=== PATIENT | male | born 1940 ===

== ENCOUNTER 2024-09-20 09:49 | Outpatient (AMB) | payer BC, MEDICARE, SELFPAY ==
--- NOTE | 2024-09-20 09:52 | A.OFFPC_ITS ---
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 Intake Note: New patient visit J2Ee Developer Required: No Accompanied by: Spouse Allergies No Known Allergies Allergy (Verified 09/20/24 09:53) Tobacco use date assessed: 09/20/24 Fall risk assessment: 2 + Falls in past year Last assessed Fall Risk: 09/20/24 Dental Screening Dental Screen Date: 09/20/24 Did you have a dental visit in the last 12 months?: Yes Did you have a dental problem in the last 6 months where you did not have access to dental care?: No Was dental information given to patient?: Patient has dentist HPI HPI Comments History of Present Illness Details The patient is an 84 year old male with a past medical history of CHF, ICM, h/o CABG 2009, s/p repair, macular degeneration, hearing loss and back pain presenting to [facility]. Transfer from [facility] CV: on entresto, crestor, hydralazine, farxiga, imdur, lasix, ASA, omega. Follows with cardiology Jigar Gonzalez. Sees every six months. Chronic shortness of breath-history of covid pneumonia. Recent blood work Urology: On flomax MSK Chronic low back pain. Trouble sleeping. Had spinal stimulator. He was scheduled for cortisone injection last week but was on antibiotics at the time so this was delayed. Follows with Dr Velázquez. Gout-on allopurinol. No recent flare Wet macular degeneration. Follows with optho Recent ear surgery-sushma [place] last week. Issues with loose stools. Ongoing. On abx for recent ear surgery. Horrible taste in his mouth On vitamin D ROS see HPI PHYSICAL EXAM: GENERAL: Alert and oriented x 3. NAD EYES: EOMI. Anicteric. HENT: Moist mucous membranes. +thrush. No scleral icterus. No cervical lymphadenopathy. LUNGS: Clear to auscultation bilaterally. CARDIOVASCULAR: Regular rate and rhythm. systolic murmur. No JVD. ABDOMEN: Soft, non-tender +bs EXTREMITIES: No edema. Non-tender. SKIN: No rashes or lesions. Warm. NEUROLOGIC: No focal neurological deficits. CN II-XII grossly intact PSYCHIATRIC: Cooperative. Appropriate mood and affect [facility] Surgical History Hx of CABG History of knee surgery Hx of tonsillectomy Social History Housing: House Alcohol intake: never Patient Tobacco Use Status: Never used Tobacco Years Smoked: 40 e-Cigarette/Vaping Use: Never Used Second Hand Smoke Exposure: No service: Yes Current occupational status: retired Cognitive needs: No Hearing needs: Yes Vision needs: No Questionnaire PHQ-9 Over the last 2 weeks, how often have you been bothered by any of the following problems? 1. Little interest or pleasure in doing things: not at all 2. Feeling down, depressed, or hopeless: not at all 3. Trouble falling or staying asleep, or sleeping too much: nearly every day 4. Feeling tired or having little energy: nearly every day 5. Poor appetite or overeating: not at all 6. Feeling bad about yourself - or that you are a failure or have let yourself or your family down: not at all 7. Trouble concentrating on things, such as reading the newspaper or watching television: not at all 8. Moving or speaking so slowly that other people could have noticed. Or the opp osite - being so fidgety or restless that you have been moving around a lot more than usual: not at all 9. Thoughts that you would be better off or of hurting yourself in some way: not at all Total score: 6 Depression Screening Interpretation: Positive Depression Screening Done: Yes 37390 - PHQ-9 Billing: Yes Source: Developed by Drs. Ashish North, Zunilda Fournier, Ignacio Dimas and colleagues, with an educational june from [employer]. Thrive Questionnaire Date Thrive assessed: 09/20/24 I am a: Patient What is your living situation today?: I have a steady place to live Within the past 12 months, did the food you bought not last and you didn't have the money to get more?: Never true Within the past 12 months, did you worry whether your food would run out before you got money to buy more?: Never true Do you have trouble paying for medicines?: No Do you have trouble getting transportation to medical appointments?: No Do you have trouble paying your heating and electricity bill?: No Do you have trouble taking care of your child, family member or friend?: No Do you have trouble with day-to-day activities such as bathing, preparing meals, shopping, managing finances, etc.?: No Are you currently unemployed and looking for a job?: I choose not to answer this question Are you interested in more education?: No Please select the resources that you would like help with: None Currently or been in a relationship where the following occur: I choose not to answer THRIVE Score: 0 AUDIT C Alcohol Use Questionnaire (AUDIT-C) 1. How often do you have a drink containing alcohol?: Never 3. How often do you have six or more drinks on one occasion?: Never Total Score: 0 LUCAS-7 AMB Questionnaire LUCAS-7 Date LUCAS - 7 assessed: 09/20/24 Feeling nervous, anxious, or on edge: 0 = Not at all Not being able to stop or control worryin = Not at all Worrying too much about different things: 0 = Not at all Trouble relaxin = Not at all Being so restless that it is hard to sit still: 0 = Not at all Becoming easily annoyed or irritable: 0 = Not at all Feeling afraid as if something awful might happen: 0 = Not at all Total LUCAS-7 score (0-4 normal; 5-9 mild; 10-14 moderate; 15-21 severe): 0 Source: Developed by Drs. Ashish North, Zunilda Fournier, Ignacio Dimas and colleagues, with an educational june from [employer]. LUCAS-7 Assessment Billing LUCAS-7 Assessment Tool: LUCAS-7 Assessment 10304 Physical exam (Primary Care) Vital Signs: Last Vital Signs Temp 98.2 F 09/20/24 09:54 Pulse 69 09/20/24 09:54 Resp 14 09/20/24 09:54 BP 116/46 L 09/20/24 09:54 Pulse Ox 97 09/20/24 09:54 Oxygen Delivery Method Room Air 09/20/24 09:54 BMI result Body Mass Index 27.2 Depression Screening Interpretation: Positive Currently or been in a relationship where the following occur: I choose not to answer Coding Level of Care Code New Pt Level 4 (38915) Complex EM visit Add On G2211 Diagnoses Chronic combined systolic and diastolic congestive heart failure I50.42 Heart failure type: combined systolic and diastolic Heart failure chronicity: chronic Coronary artery disease involving coronary bypass graft of [place] heart, unspecified whether angina present I25.810 Coronary Disease-Associated Artery/Lesion type: bypass graft [place] vs. transplanted heart: [place] heart Associated angina: unspecified whether angina present Dysgeusia R43.2 Diarrhea, unspecified type R19.7 Diarrhea type: unspecified type Additional Codes LUCAS-7 Assessment Billing - LUCAS-7 Assessment Tool: LUCAS-7 Assessment 76396 ([id number]) PHQ-9 - 10579 - PHQ-9 Billing: Yes ([id number]) Assessment & Plan Assessment & Plan (1) CHF (congestive heart failure): Code(s): I50.9 - Heart failure, unspecified Category: Medical Qualifiers: Heart failure type: combined systolic and diastolic Heart failure chronicity: chronic Qualified Code(s): I50.42 - Chronic combined systolic (congestive) and diastolic (congestive) heart failure (2) CAD (coronary artery disease): Code(s): I25.10 - Atherosclerotic heart disease of [place] coronary artery without angina pectoris Category: Medical Qualifiers: Coronary Disease-Associated Artery/Lesion type: bypass graft [place] vs. transplanted heart: [place] heart Associated angina: unspecified whether angina present Qualified Code(s): I25.810 - Atherosclerosis of coronary artery bypass graft(s) without angina pectoris (3) Dysgeusia: Code(s): R43.2 - [place] Category: Medical (4) Diarrhea: Code(s): R19.7 - Diarrhea, unspecified Category: Medical Qualifiers: Diarrhea type: unspecified type Qualified Code(s): R19.7 - Diarrhea, unspecified Plan 84 yo to establish care past medical, surgical, social reviewed CAD/CHF-follows with cardiology Loose frequent stools, GERD, dysgeusia-check h pylori, c diff Thrush-nystatin swish and swallow. Denies groin rash Orders: Orders H pylori Ag Stool Today R19.7 - Diarrhea, unspecified, R43.2 - [place] CDiff Gene PCR Today R19.7 - Diarrhea, unspecified, R43.2 - [place] Medications: New omeprazole 40 mg PO DAILY 90 caps 3RF nystatin swish and spit 1 mL buccal DAILY 14 days 60 mL 3RF
[2024-09-20 09:54] VITALS: BP 116/46; PULSE 69; RESP 14; TEMP 36.8; O2SAT 97; BMI 27.2
--- OUTSIDE RECORDS SUMMARY | 2024-09-20 10:55 | XMS_ITS | Patient Health Record ---
Author Organization [facility] [address] Address [address] [place] [address] Care Team Providers Care Pipe Welder Name Role Phone Stewart Medel Primary Care Provider Unavailab humera Leisa Garrett Unavailable [phone] Reason For Referral No Information Medications Medication SIG (Take, Route, Frequency, Duration) Notes Start Date End Date Status Pentoxifylline ER 400 MG 1 tablet with m eals Orally Twice a day Active Gabapentin 300 MG/6ML 2 ml Orally Three times a day Active Aspirin 81 MG 1 tablet Orally Once a day Active Allopurinol 300 MG 1 tablet Orally Once a day Active Tamsulosin HCl 0.4 MG 1 capsule Orally Once a day Active glipiZIDE 2.5 mg Act chayo Schaller 3 1000 MG 1 capsule Orally Once a day Active Vitamin D3 5000 UNIT/ML Orally Active Simvastatin 20 MG 1 tablet in the even ing Orally Once a day Active Lisinopril 20 MG 1 tablet Orally Once a day Active Social History Tobacco Use: Social History Observation Description Date Details (start date - stop date) Former Smoker NA - NA Tobacco Use/Smoking Question Answer Notes Are you a: former smoker When did you stop smoking? 2002 Additional Findings: Tobacco Non-User Current no n-smoker Alcohol Screen Question Answer Notes Did you have a drink containing alcohol in the p ast year? No Points 0 Interpretation Negative Tobacco use other than smoking: Question Answer Notes Are you an other tobacco user? Yes C igar rarely Problems Problem Type SNOMED Code ICD Code Onset Dates Problem Status W/U Status Risk Notes Problem Acquired hammer toe of right foot (56511852250 13537) Other hammer toe(s) (acquired), right foot (M20.41) Active confirmed Problem Acquired hammer toe of left foot ([id number] 79971) Other hammer toe(s) (acquired), left foot (M20.42) Active confirmed Problem Other atherosclerosis of [place] arteries of extremities, 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) Active confirmed Plan Of Treatment No Information Insurance Providers Payer Name Payer Address Payer Phone Subscriber Number Group Number Insured Name Patient Relationship to Insured Coverage Start Date Coverage End Date Medicare National [employer] [address] [place] [address] [phone] [id number] Tam Dunaway Self - patient is the insured [facility] [address] [place] [address] [id number] Tam Dunaway Self - patient is the insured Medical (General) History Medical History History ICD Code Back,Hip,and Knee pain Gout High blood pressure Scarlet fever Measles Mumps Chicken pox Surgical History Surgery Date(Month/Year) triple bypass
== END 2024-09-20 10:27 | disposition home or self-care (01) ==
LOC: HO.HMCFM 09:50
PROVIDERS: PCP Internal Medicine; Visit Provider Internal Medicine
DX: I50.42 Chronic combined systolic (congestive) and diastolic (congestive) heart failure (principal); I25.810 Atherosclerosis of coronary artery bypass graft(s) without angina pectoris; R43.2 Parageusia; R19.7 Diarrhea, unspecified

== ENCOUNTER → 2024-09-20 09:49 | Outpatient (BNVA) | payer MEDICARE, BC, SELFPAY | PROVIDERS: PCP Internal Medicine; Visit Provider Internal Medicine | DX: I50.42 Chronic combined systolic (congestive) and diastolic (congestive) heart failure (principal); I25.810 Atherosclerosis of coronary artery bypass graft(s) without angina pectoris; R43.2 Parageusia; R19.7 Diarrhea, unspecified | CPT/HCPCS: 96127 ==

== ENCOUNTER 2024-09-22 13:40 | Outpatient (REF) | payer MEDICARE, BC, SELFPAY ==
[2024-09-22 14:35] LABS: CDiff Gene PCR NEGATIVE (Negative)
--- OUTSIDE RECORDS SUMMARY | 2024-09-22 14:49 | XMS_ITS | Patient Health Record ---
Author Organization [facility] [address] Address [address] [place] [address] Care Team Providers Care Envelope Stamping Machine Operator Name Role Phone Stewart Medel Primary Care Provider Unavailab humera Leisa Garrett Unavailable [phone] Reason For Referral No Information Medications Medication [...] day Active glipiZIDE 2.5 mg Act chayo Darrington 3 1000 MG 1 capsule Orally Once [...] Problem Acquired hammer toe of right foot ([id number] 79864) Other hammer toe(s) (acquired), right foot (M20.41) Active confirmed Problem Acquired hammer toe of left foot ([id number] 08210) Other hammer toe(s) (acquired), left foot (M20.42) Active confirmed Problem Other atherosclerosis of [place] arteries of extremities, 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) Active confirmed Plan Of Treatment No Information Insurance Providers Payer Name Payer Address Payer Phone Subscriber Number Group Number Insured Name Patient Relationship to Insured Coverage Start Date Coverage End Date Medicare National [employer] [address] [place] [address] [phone] [id number] Tam Dunaway Self - patient is the insured [facility] [address] [place] [address] [id number] Tam Dunaway Self - patient is the insured Medical (General) History Medical History History ICD Code Back,Hip,and Knee pain Gout High blood pressure Scarlet fever Measles Mumps Chicken pox Surgical History Surgery Date(Month/Year) triple bypass
== END 2024-09-22 13:41 | disposition home or self-care (01) ==
LOC: HO.LNP 13:40
PROVIDERS: Visit Provider Internal Medicine
DX: R43.2 Parageusia (principal); R19.7 Diarrhea, unspecified
CPT/HCPCS: 87338; 87493

== ENCOUNTER 2024-10-11 11:26 | Outpatient (AMB) | payer MEDICARE, BC, SELFPAY ==
--- NOTE | 2024-10-11 11:30 | A.OFFPC_ITS ---
Vital Signs 10/11/24 11:34 Height 5 ft 11 in Weight 197 lb BMI 27.5 BP 126/62 Blood Pressure Location Lt brachial Position Sitting Respiration 16 Pulse 84 Pulse Source Pulse Oximeter Temp 97.6 F Temp Source Oral Pulse Oximetry (%) 96 Oxygen Delivery Method Room Air Intake Visit Reasons: episodes of sob Intake Note: Ongoing shortness of breath on exertion. Coughing at night lying down. Allergies No Known Allergies Allergy (Verified 10/11/24 11:34) Tobacco use date assessed: 09/20/24 Dental Screening Dental Screen Date: 09/20/24 HPI HPI Comments History of Present Illness Details The patient is an 84 year old male with a past medical history of CHF, ICM, h/o CABG 2009, s/p repair, macular degeneration, hearing loss and back pain presenting for follow up Patient has been experiencing sob regularly for years, since he had pneumonia from Covid. Patient was told by his manager business systems that he has a lung disease. Patient is asymptomatic sitting and not moving but once he moves around he becomes short of breath. He also experiences shortness of breath while lying down, and has to sleep upright, sometimes in his armchair. ~5 pound weight gain recently. Chronic nightime cough. CV: on entresto, crestor, hydralazine, farxiga, imdur, lasix, ASA, omega. Follows with cardiology Jigar Gonzalez. Sees every six months. Chronic shortness of breath-history of covid pneumonia. Urology: On flomax MSK Chronic low back pain. Trouble sleeping. Had spinal stimulator.Gets cortisone injections Follows with Dr Velázquez. Gout-on allopurinol. No recent flare Wet macular degeneration. Follows with optho Recent ear surgery-sushma [place]. Issues with loose stools. Ongoing. On abx for recent ear surgery. Horrible taste in his mouth. H pylori and cdiff negative ROS see HPI PHYSICAL EXAM: GENERAL: Alert and oriented x 3. NAD EYES: EOMI. Anicteric. HENT: Moist mucous membranes. +thrush. No scleral icterus. No cervical lymphadenopathy. LUNGS: Clear to auscultation bilaterally. Poor air entry CARDIOVASCULAR: Regular rate and rhythm. Loud systolic murmur. No JVD. ABDOMEN: Soft, non-tender +bs EXTREMITIES: 1+ edema b/l Non-tender. SKIN: No rashes or lesions. Warm. NEUROLOGIC: No focal neurological deficits. CN II-XII grossly intact PSYCHIATRIC: Cooperative. Appropriate mood and affect [facility] Surgical History Hx of CABG History of knee surgery Hx of tonsillectomy Social History Housing: House Alcohol intake: never Patient Tobacco Use Status: Never used Tobacco Years Smoked: 40 e-Cigarette/Vaping Use: Never Used Second Hand Smoke Exposure: No service: Yes Current occupational status: retired Cognitive needs: No Hearing needs: Yes Vision needs: No Questionnaire Thrive Questionnaire Date Thrive assessed: 09/20/24 I am a: Patient What is your living situation today?: I have a steady place to live Within the past 12 months, did the food you bought not last and you didn't have the money to get more?: Never true Within the past 12 months, did you worry whether your food would run out before you got money to buy more?: Never true Do you have trouble paying for medicines?: No Do you have trouble getting transportation to medical appointments?: No Do you have trouble paying your heating and electricity bill?: No Do you have trouble taking care of your child, family member or friend?: No Do you have trouble with day-to-day activities such as bathing, preparing meals, shopping, managing finances, etc.?: No Are you currently unemployed and looking for a job?: I choose not to answer this question Are you interested in more education?: No Please select the resources that you would like help with: None Currently or been in a relationship where the following occur: I choose not to answer THRIVE Score: 0 LUCAS-7 AMB Questionnaire LUCAS-7 Date LUCAS - 7 assessed: 09/20/24 Source: Developed by Zunilda Medina B.W. Shantanu, Ignacio Dimas and colleagues, with an educational june from [employer]. Physical exam (Primary Care) Vital Signs: Last Vital Signs Temp 97.6 F 10/11/24 11:34 Pulse 84 10/11/24 11:34 Resp 16 10/11/24 11:34 BP 126/62 10/11/24 11:34 Pulse Ox 96 10/11/24 11:34 Oxygen Delivery Method Room Air 10/11/24 11:34 BMI result Body Mass Index 27.5 Tobacco/Smoking Status: Tobacco use Status Tobacco use date assessed 09/20/24 10/11/24 11:30 Patient Tobacco Use Status Never used Tobacco 10/11/24 11:30 e-Cigarette/Vaping Use Never Used 10/11/24 11:30 Thrive Assessment: Date of Thrive Assessment Date Thrive assessed 09/20/24 10/11/24 11:30 Currently or been in a relationship where the following occur: I choose not to answer Coding Level of Care Code Est Pt Level 4 (95707) Complex EM visit Add On G2211 Diagnoses Chronic combined systolic and diastolic congestive heart failure I50.42 Heart failure type: combined systolic and diastolic Heart failure chronicity: chronic Coronary artery disease involving coronary bypass graft of [place] heart, unspecified whether angina present I25.810 Coronary Disease-Associated Artery/Lesion type: bypass graft [place] vs. transplanted heart: [place] heart Associated angina: unspecified whether angina present Shortness of breath R06.02 Diarrhea, unspecified type R19.7 Diarrhea type: unspecified type Assessment & Plan Assessment & Plan (1) CHF (congestive heart failure): Code(s): I50.9 - Heart failure, unspecified Category: Medical Qualifiers: Heart failure type: combined systolic and diastolic Heart failure chronicity: chronic Qualified Code(s): I50.42 - Chronic combined systolic (congestive) and diastolic (congestive) heart failure (2) CAD (coronary artery disease): Code(s): I25.10 - Atherosclerotic heart disease of [place] coronary artery without angina pectoris Category: Medical Qualifiers: Coronary Disease-Associated Artery/Lesion type: bypass graft [place] vs. transplanted heart: [place] heart Associated angina: unspecified whether angina present Qualified Code(s): I25.810 - Atherosclerosis of coronary artery bypass graft(s) without angina pectoris (3) Shortness of breath: Code(s): R06.02 - Shortness of breath Category: Medical (4) Diarrhea: Code(s): R19.7 - Diarrhea, unspecified Category: Medical Qualifiers: Diarrhea type: unspecified type Qualified Code(s): R19.7 - Diarrhea, unspecified Plan Shortness of breath Known CHF, CAD. Following with cardiology. Recent weight gain. Increase lasix to 40 daily x 3 days then 20 daily (currently qother day) Check CXR, labs PFTs Referral to pulmonary Orders: Orders XR chest 2V Today R06.02 - Shortness of breath Magnesium Today I50.42 - Chronic combined systolic (congestive) and diastolic (congestive) heart failure, R05.9 - Cough, unspecified, R06.02 - Shortness of breath Complete Blood Count Auto Diff Today R06.02 - Shortness of breath Comprehensive Met. Panel Today I25.810 - Atherosclerosis of coronary artery bypass graft(s) without angina pectoris, I50.42 - Chronic combined systolic (congestive) and diastolic (congestive) heart failure PFT pulmonary function test Today R05.9 - Cough, unspecified, R06.02 - Shortness of breath NT-proBNP Today I50.42 - Chronic combined systolic (congestive) and diastolic (congestive) heart failure, R05.9 - Cough, unspecified, R06.02 - Shortness of breath Referrals Pulmonology Referral I50.42 - Chronic combined systolic (congestive) and diastolic (congestive) heart failure, R05.9 - Cough, unspecified, R06.02 - Shortness of breath
[2024-10-11 11:34] VITALS: BP 126/62; PULSE 84; RESP 16; TEMP 36.4; O2SAT 96; BMI 27.5
--- OUTSIDE RECORDS SUMMARY | 2024-10-11 12:33 | XMS_ITS | Clinical Summary ---
Author Organization [facility] [address] [facility] Address [address] [place] [address] Phone Care Team Providers Care Chief School Finance Officer Name Role Phone Unavailable Primary Care Provider Unavailabl e Allergies No known active allergies Medications hydrALAZINE (APRESOLINE) 100 mg tablet Take 1 tablet (100 mg total) by mouth 3 (three) times a day. 02/22/20 25 Active rosuvastatin (CRESTOR) 10 mg tablet Take 1 tablet (10 mg total) by mouth 1 (one) time each day. Active sacubitriL-valsa rtan (Entresto) 97-103 mg per tablet Take 1 tablet by mouth 2 (two) times a day. Per cardio Active dapagliflozin propanediol (Farxiga) 10 mg tablet Take 1 tablet (10 mg total) by mouth 1 (one) time each day. Per Active omeprazole (PriLOSEC) [address] capsule Take 2 capsules (40 mg total) by mouth 1 (one) time each day. Do not crush or chew. 02/22/20 25 Active tamsulosin (FLOMAX) 0.4 mg 24 hr capsule Take 1 capsule (0.4 mg total) by mouth 1 (one) time each day. Capsules should be taken 30 minutes following the same meal each day. 02/22/20 25 Active isosorbide mononitrate (IMDUR) 120 mg 24 hr tablet Take 1 tablet (120 mg total) by mouth 1 (one) time each day. Do not crush or chew. Per Active furosemide (LASIX) 20 mg tablet Take 1 tablet (20 mg total) by mouth 1 (one) time each day. Per cardio 02/22/20 25 Active allopurinoL (ZYLOPRIM) 300 mg tablet Take 1 tablet (300 mg total) by mouth 1 (one) time each day. Gout prophylaxis 02/22/20 25 Active magnesium oxide (MAG-OX) 400 mg magnesium tablet Take 1 tablet (400 mg total) by mouth 2 (two) times a day. Active cholecalciferol (Vitamin D3) 25 mcg (1,000 unit) capsule Take 1 capsule (1,000 Units total) by mouth 1 (one) time each day. 02/22/20 25 Active aspirin 81 mg EC tablet Take 1 tablet (81 mg total) by mouth 1 (one) time each day. 02/22/20 25 Active wm-uyf-XX-vit G-nnjeyx-awergbk (PreserVision AREDS 2 Plus MV) 200 mcg-15 mcg- 5 mg-1 mg capsule Take by mouth. Activ e B complex-vitamin C tablet Take 1 tablet by mouth 1 (one) time each day. 30 tablet 02/22/20 25 Active omega 1-jgv-nko-fish oil (Fish OiL) 1,200 (144-216) mg capsule Take 1 capsule by mouth 1 (one) time each day. 4 Active Active Problems No known active problems Surgical History Surgery Date Site/Laterality Comments CORONARY ARTERY BYPASS GRAFT 06/29/2023 OTHER SURGICAL HISTORY 06/28/2023 aortoplasty LAMINECTOMY Social History Tobacco Use Types Packs/Day Years Used Date Smoking Tobacco: Never Smokeless Tobacco: Never Alcohol Use Standard Drinks/Week Comments Never 0 (1 standard drink = 0.6 oz pur e alcohol) Sex and Gender Information Value Date Recorded Sex Assigned at Not on file Legal Sex Male 11:37 AM EDT Gender Identity Not on file Sexual Orientation Not on file Obstetrics History Last Filed Vital Signs Vital Sign Reading Time Taken Comments Blood Pressure 153/56 02/22/2024 10:16 AM EST Pulse 66 02/22/2024 10:16 AM EST Temperature 36.1 C (96.9 F) 02/22/2024 10:16 AM EST Respiratory Rate 16 02/22/2024 10:16 AM EST Oxygen Saturation - - Inhaled Oxygen Concentration - - Weight 90.4 kg (199 lb 6.4 oz) 02/22/2024 10:16 AM EST Height 180.3 cm (5' 10.98 ) 02/22/2024 10:16 AM EST Body Mass Index 27.82 02/22/2024 10:16 AM EST Plan of Treatment Health Maintenance Due Date Last Done Comments Diabetes: Annual GFR (Glomerular Filtration Rate) 1940 Diabetes: Annual Foot Exam 01/06/1950 Diabetes: Annual Retina Eye Exam 01/06/1950 RSV Immunization Adult Patients (1 - 1-dose 75+ series) 01/06/2015 Pneumococcal Vaccine: 50+ Years (2 of 2 - PPSV23) 05/02/2020 05/02/2019 COVID-19 Vaccine (1 - 2023-2 5 season) 2023 Cholesterol Screening (Lipid Panel) 01/30/2024 Depression Screening 01/30/2024 Falls Risk Assessment 01/30/2024 Medicare Annual Wellness Visit 01/30/2024 Social Influencers of Health Screening 01/30/2024 Diabetes: Annual Urine Albumin-Creatinine Ratio (uACR) 02/22/2024 Diabetes: Blood Sugar Contro l Test (HGBA1C) 02/22/2024 Hypertension/CHF/CAD Annual BMP Blood Test 02/22/2024 Influenza Vaccine (#1) 2024 DTaP,Tdap,and Td Vaccines (2 - Td or Tdap) 05/02/2029 05/02/2019 Zoster Vaccines Completed 10/11/2019, 05/02/2019 HIB Vaccines Aged Out No longer eligi ble based on patient's age to complete this topic HPV Vaccines Aged Out No longer eligi ble based on patient's age to complete this topic Hepatitis A Vaccines Aged Out No long er eligible based on patient's age to complete this topic Hepatitis B Vaccines Aged Out No long er eligible based on patient's age to complete this topic IPV Vaccines Aged Out No longer eligi ble based on patient's age to complete this topic MMR Vaccines Aged Out No longer eligi ble based on patient's age to complete this topic Meningococcal ACWY Vaccine Aged Out N o longer eligible based on patient's age to complete this topic Meningococcal B Vaccine Aged Out No l onger eligible based on patient's age to complete this topic RSV Immunization Patients Under 20 months Aged Out No longer eligible b ased on patient's age to complete this topic Varicella Vaccines Aged Out No longer eligible based on patient's age to complete this topic Insurance MEDICARE [facility]
--- OUTSIDE RECORDS SUMMARY | 2024-10-11 12:33 | XMS_ITS | Patient Health Record ---
Author Organization [facility] Address [address] [place] [address] Care Team Providers Care Photography Instructor Name Role Phone Jass Woodward MD Primary Care Provider Ashish Morales Unavailable [phone] Reason For Referral No Information Medications Medication SIG (Take, Route, Frequency, Duration) Notes Start Date End Date Status Aspir-81 81mg Active glipiZIDE 2.5mg Acti ve Metoprolol & Diet Manage Prod 25mg Active Norvasc 10mg Active Allopurinol 300mg Ac tive [place] 3 Active Vitamin D-3 1000iu 04/06/2024 04/06/2024 Active Problems Problem Type SNOMED Code ICD Code Onset Dates Problem Status W/U Status Risk Notes Problem Already on aspirin (089943062) Long-term (current) use of aspirin (V58.66) Active confirmed Problem Colon cancer screening (V76.51) Active confirmed Plan Of Treatment Future Test Test Name Order Date COLONOSCOPY 06/15/2012 Insurance Providers Payer Name Payer Address Payer Phone Subscriber Number Group Number Insured Name Patient Relationship to Insured Coverage Start Date Coverage End Date MEDICARE OF [place] [address] [place] [address] [id number] BRAD ROTHMAN SR Self - patient is the insured [facility] [address] [place], [place] [id number] BRAD ROTHMAN SR Self - patient is the insured Medical (General) History Medical History History ICD Code NIDDM hypertension Denies MO,CVA,Lung disease,renal disease CAD-3V CABG in 02/2011 Gout Surgical History Surgery Date(Month/Year) 3 V CABG in 02/2011 knee Facial skin CA on the left side
--- OUTSIDE RECORDS SUMMARY | 2024-10-11 12:33 | XMS_ITS | Patient Health Record ---
Author Organization [facility] Address [address] [place] [address] Care Team Providers Care Ben Day Artist Name Role Phone Stewart Medel Primary Care Provider Unavailab humera Leisa Garrett Unavailable [phone] Reason For Referral No Information Medications Medication [...] day Active glipiZIDE 2.5 mg Act chayo [place] 3 1000 MG 1 capsule Orally Once [...] Problem Acquired hammer toe of right foot ([id number]) Other hammer toe(s) (acquired), right foot (M20.41) Active confirmed Problem Acquired hammer toe of left foot ([id number] 89546) Other hammer toe(s) (acquired), left foot (M20.42) Active confirmed Problem Other atherosclerosis of [place] arteries of extremities, 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) Active confirmed Plan Of Treatment No Information Insurance Providers Payer Name Payer Address Payer Phone Subscriber Number Group Number Insured Name Patient Relationship to Insured Coverage Start Date Coverage End Date Medicare National [employer]t [employer] [address] [place] [address] [phone] [id number] Tam Dunaway Self - patient is the insured [facility] [address] [place] [address] [id number] Tam Dunaway Self - patient is the insured Medical (General) History Medical History History ICD Code Back,Hip,and Knee pain Gout High blood pressure Scarlet fever Measles Mumps Chicken pox Surgical History Surgery Date(Month/Year) triple bypass
== END 2024-10-11 11:54 | disposition home or self-care (01) ==
LOC: HO.HMCFM 11:29
PROVIDERS: PCP Internal Medicine; Visit Provider Internal Medicine
DX: I50.42 Chronic combined systolic (congestive) and diastolic (congestive) heart failure (principal); I25.810 Atherosclerosis of coronary artery bypass graft(s) without angina pectoris; R06.02 Shortness of breath; R19.7 Diarrhea, unspecified

== ENCOUNTER → 2024-10-11 11:26 | Outpatient (BNVA) | payer MEDICARE, BC, SELFPAY | PROVIDERS: PCP Internal Medicine; Visit Provider Internal Medicine | DX: R06.02 Shortness of breath (principal); I50.42 Chronic combined systolic (congestive) and diastolic (congestive) heart failure; I25.810 Atherosclerosis of coronary artery bypass graft(s) without angina pectoris; R19.7 Diarrhea, unspecified; Z79.899 Other long term (current) drug therapy | CPT/HCPCS: 99212 ==

== ENCOUNTER 2024-10-11 12:49 | Outpatient (REF) | payer MEDICARE, BC, SELFPAY ==
[2024-10-11 15:20] LABS: MANUAL DIFF FLAG NO
[2024-10-11 15:30] LABS: Hematocrit 27.2 % (42.0-52.0); Hemoglobin 9.4 g/dl (14.0-18.0); Imm Gran Abs Auto 0.11 X10*3/uL (0.00-0.03); Imm Gran Pct Auto 1.6 % (0.0-0.4); Lymphocytes Absolute Auto 0.7 X10*3/uL (1.2-4.9); Mean Corpuscular HGB Conc 34.6 g/dl (31.0-36.0); Mean Corpuscular Hemoglobin 34.3 pg (27.0-33.0); Mean Corpuscular Volume 99.3 fL (80.0-98.0); NRBC Abs Auto 0.000 X10*3/uL (0.0-0.012); NRBC Pct Auto 0.0 /100WBC (0.0-0.2); Platelet Count 180 X10*3/uL (160-400); Red Blood Count 2.74 X10*6/uL (4.60-5.80); White Blood Count 7.1 X10*3/uL (4.8-10.8)
[2024-10-11 16:12] LABS: Alanine Aminotransferase 27 U/L (0-40); Albumin Level 3.2 g/dL (3.5-5.0); Alkaline Phosphatase 104 U/L (39-117); Anion Gap 11 (12-20); Aspartate Amino Transferase 17 U/L (5-37); Blood Urea Nitrogen 39 mg/dL (9-16); Calcium 8.1 mg/dL (8.4-10.2); Carbon Dioxide 18 mmol/L (22-29); Chloride 111 mmol/L (96-108); Estimated Glomerular Filt Rate 33; Magnesium 1.2 mg/dL (1.6-2.6); Potassium 4.6 mmol/L (3.3-5.1); Sodium 135 mmol/L (135-145); Total Protein 5.8 g/dL (6.5-8.0)
== END 2024-10-11 12:50 | disposition home or self-care (01) ==
LOC: HO.WFDLDS 12:49
PROVIDERS: Visit Provider Internal Medicine
DX: R06.02 Shortness of breath (principal); I50.42 Chronic combined systolic (congestive) and diastolic (congestive) heart failure; I25.810 Atherosclerosis of coronary artery bypass graft(s) without angina pectoris; R05.9 Cough, unspecified
CPT/HCPCS: 36415; 80053; 83735; 83880; 85025

== ENCOUNTER 2024-10-19 11:30 | Outpatient (REF) | payer MEDICARE, BC, SELFPAY ==
[2024-10-19 15:36] LABS: Magnesium 1.3 mg/dL (1.6-2.6)
== END 2024-10-19 11:31 | disposition home or self-care (01) ==
LOC: HO.WFDLDS 11:30
PROVIDERS: Visit Provider Internal Medicine
DX: R19.7 Diarrhea, unspecified (principal)
CPT/HCPCS: 36415; 83735

== ENCOUNTER 2024-11-08 14:14 | Outpatient (REF) | payer MEDICARE, BC, SELFPAY ==
[2024-11-08 18:20] LABS: Appearance Urine Clear; Glucose Urine UA Negative (Negative); PH 5.5 (5.0-9.0); Specific Gravity - Urine <= 1.005 (1.005-1.025)
[2024-11-08 18:49] LABS: Anion Gap 12 (12-20); Blood Urea Nitrogen 28 mg/dL (9-16); Calcium 8.4 mg/dL (8.4-10.2); Carbon Dioxide 23 mmol/L (22-29); Chloride 107 mmol/L (96-108); Estimated Glomerular Filt Rate 34; Iron 33 mcg/dL (45-160); Percent Iron Saturation 17 % (15-50); Potassium 4.8 mmol/L (3.3-5.1); Sodium 137 mmol/L (135-145); Total Iron Binding Capacity 195 mcg/dL (228-428); Unsaturated Iron Binding 162 ug/dL
[2024-11-08 19:35] LABS: Microalbum/Creatinine Ratio Ur 548.4 ug/mg cr (<30)
[2024-11-08 19:45] LABS: Parathyroid Hormone Intact 144.3 pg/mL (8.7-77.1)
[2024-11-09 08:09] LABS: HBS Num1 1.31 mIU/mL (0-7.99); HBc Num1 0.07 S/CO (0.00-0.79); HBsAGNum1 0.38 S/CO (0.00-0.99); HIV Num 1 0.06 S/CO (0.00-0.99); Hepatitis B Surface Antigen Negative (Negative); ~HepC Num1 0.14 S/CO (0.00-0.79); ~Hepatitis B Surface Antibody NONREACTIVE (Nonreactive); ~Hepatitis C Antibody Nonreactive (Nonreactive)
[2024-11-09 23:09] LABS: Proteinase 3 PR3 Antibodies <1.0 AI
[2024-11-10 11:29] LABS: PEU-Protein Creat Ratio Rand 0.778 (0.025-0.148); PEU-Rand. Prot/Creat Ratio 778 mg/g creat (25-148); PEU-Random Ur. Gamma Globulin 12 %; PEU-Random Urine A1 Globulin 7 %; PEU-Random Urine A2 Globulin 5 %; PEU-Random Urine Albumin 66 %; PEU-Random Urine Beta Globulin 10 %; PEU-Random Urine Creatinine 27 mg/dL (20-320); PEU-Random Urine Protein 21 mg/dL (5-25)
[2024-11-11 13:38] LABS: Anti Nuclear Antibody Screen POSITIVE (NEGATIVE); Anti Nuclear Antibody Titer 1:320 titer
[2024-11-11 21:43] LABS: Prot Elec - Albumin 3.1 g/dL (3.8-4.8); Prot Elec - Alpha1 0.4 g/dL (0.2-0.3); Prot Elec - Alpha2 0.7 g/dL (0.5-0.9); Prot Elec - Beta 1 0.4 g/dL (0.4-0.6); Prot Elec - Beta 2 0.4 g/dL (0.2-0.5); Prot Elec - Gamma 1.0 g/dL (0.8-1.7); Prot Elec - Total Protein 6.0 g/dL (6.1-8.1)
[2024-11-14 16:28] LABS: Kappa, Serum 298 mg/dL (176-443); Kappa/Lambda Ratio, Serum 2.24 (1.29-2.55); Lambda, Serum 133 mg/dL (91-240)
[2024-11-15 11:38] LABS: Creatinine, Random Urine 25 mg/dL (20-320); Magnesium, Random Urine 64 mg/g creat (22-130)
== END 2024-11-08 14:15 | disposition home or self-care (01) ==
LOC: HO.HKASLDS 14:14
PROVIDERS: PCP Internal Medicine; Referring Provider Internal Medicine; Visit Provider Internal Medicine Critical Care Medicine
DX: E83.42 Hypomagnesemia (principal); I13.0 Hypertensive heart and chronic kidney disease with heart failure and stage 1 through stage 4 chronic kidney disease, or unspecified chronic kidney disease; E11.22 Type 2 diabetes mellitus with diabetic chronic kidney disease; D63.1 Anemia in chronic kidney disease; I50.9 Heart failure, unspecified; N18.9 Chronic kidney disease, unspecified; E83.9 Disorder of mineral metabolism, unspecified; Z79.899 Other long term (current) drug therapy; Z79.84 Long term (current) use of oral hypoglycemic drugs; Z01.84 Encounter for antibody response examination; Z11.59 Encounter for screening for other viral diseases; Z11.4 Encounter for screening for human immunodeficiency virus [HIV]; Z95.1 Presence of aortocoronary bypass graft; Z72.89 Other problems related to lifestyle
CPT/HCPCS: 80048; 81003; 82043; 82306; 82570; 83540; 83735; 83883; 83970; 84100; 84156; 84165; 84166; 86021; 86038; 86039; 86160; 86704; 86706; 86803; 87340; 87389; 99202

== ENCOUNTER 2024-11-08 14:14 | Outpatient (AMB) | payer MEDICARE, BC, SELFPAY ==
--- NOTE | 2024-11-08 14:23 | HO.NEPHOV ---
Vital Signs 11/08/24 14:29 Height 5 ft 11 in Weight 190 lb BMI 26.5 BP 126/60 Blood Pressure Location Lt brachial Position Sitting Pulse 79 Pulse Source Pulse Oximeter Pulse Oximetry (%) 98 Oxygen Delivery Method Room Air Intake Visit Reasons: INP: Hypomagnesemia-Conf w/ [employer] Machine Operator Required: No Accompanied by: Spouse Allergies No Known Allergies Allergy (Verified 11/08/24 14:28) HPI Comments Details: 84-year-old gentleman with past medical history of hypertension, diabetes mellitus CAD, CHF status post CABG in 2009 macular degeneration is here for evaluation of hypomagnesemia accomapnied by his Brunilda Hypertension: for more than 40 years Hydralazine 100 mg b.i.d. isosorbide ER 20, eplerenone, Entresto. Diabetes mellitus: On Jardiance, borderline. BPH: On tamsulosin CAD: CABG 2009, on lasix, rosuvastatin and above meds; most recent TTE in 05/2024 showed EF 45-50%, diastolic dysfunction, mild global hypokinesis. He is on magnesium glycinate 200 mg twice daily and is most recent magnesium levels of 1.3 PFSH Surgical History Hx of CABG History of knee surgery Hx of tonsillectomy Social History Housing: House Alcohol intake: never Patient Tobacco Use Status: Never used Tobacco Years Smoked: 40 e-Cigarette/Vaping Use: Never Used Second Hand Smoke Exposure: No service: Yes Current occupational status: retired Cognitive needs: No Hearing needs: Yes Vision needs: No Review of Systems Const Details: Const : no body aches, no chills, no excessive sweating and no fatigue Eyes: no blurry vision and no change in vision ENT: no bleeding gums and no change in voice, no dizziness Card: no chest pain, ++ shortness of breath, +orthopnea, no PND Resp: no cough, no excessive phlegm production, no SOB GI: no abdominal pain and no nausea, no vomiting : no hematuria, no urinary frequency and no difficulty voiding Musc: no abnormal gait, no bone pain Neuro: no abnormal movements, no weakness, denies, dizziness Denies abnormal gait and no behavioral changes Psych: no behavioral changes and no change in appetite Endo: no change in body appearance, no cold intolerance, no excessive sweating and no fatigue Physical Exam Vital Signs: Last Vital Signs Pulse 79 11/08/24 14:29 BP 126/60 11/08/24 14:29 Pulse Ox 98 11/08/24 14:29 Oxygen Delivery Method Room Air 11/08/24 14:29 BMI result Body Mass Index 26.5 General: elderly pleasant male, chronically ill and tired appearing Nutritional Appearance: well nourished and overweight Eyes: normal position, no icterus Neck: No lymphadenopathy, no thyromegaly Resp: bilateral air entry equal, crackles heard in lung base Cardio: normal S1, S2 heard, no murmur heard, + edema GI: soft, nontender, no guarding, no hepatosplenomegaly : bladder normal to inspection, bladder normal to palpation, no renal angle tenderness Skin: no rashes or lesions noted and elasticity normal Neuro: oriented to person, oriented to place, oriented to time and moves all extremities Results Reviewed Nephrology Results: Hgb, (14.0-18.0) 9.4 g/dl L 10/11/24 WBC, (4.8-10.8) 7.1 X10*3/uL 10/11/24 Plt Count, (160-400) 180 X10*3/uL 10/11/24 Sodium, (135-145) 135 mmol/L 10/11/24 Potassium, (3.3-5.1) 4.6 mmol/L 10/11/24 Chloride, (96-108) 111 mmol/L H 10/11/24 Carbon Dioxide, (22-29) 18 mmol/L L 10/11/24 BUN, (9-16) 39 mg/dL H 10/11/24 Creatinine, (0.5-1.4) 1.96 mg/dL H 10/11/24 Calcium, (8.4-10.2) 8.1 mg/dL L 10/11/24 Assessment & Plan Assessment & Plan (1) Hypomagnesemia: Code(s): E83.42 - Hypomagnesemia Category: Medical (2) Chronic kidney disease: Code(s): N18.9 - Chronic kidney disease, unspecified Category: Medical Plan Hypomagnesemia: Possibly secondary to malnutrition/malabsorption vs renal loss from lasix. This is too late in onset to be a genetic syndromes. We will get fractional excretion of magnesium to differentiate between the two. Would not be a candidate for 24 hours urine for magnesium or calcium excretion given his old age. - magnesium level: 1.3 K:4.6 Ca:8.1 - symptoms: no tremors, seizures, weakness Chronic kidney disease stage IIIb/IV: - Possibly secondary to cardiorenal syndrome, unsure about baseline creatinine; most recent 1.96. - no family history of CKD, no history of renal stones in the past, no NSAID use. - will get urine microalbumin creatinine ratio and UPCR - will get Urinalysis, renal US - avoid nephrotoxic medications not limited to NSAIDs, contrast etc. - importance of diet, weight loss, adequate blood pressure control well explained to patient; doesnt smoke anymore. - work up done so far: hepatitis panel, HIV, KYLEIGH, ANCA, complements, SPEP, UPEP, serum free light chains, PLA2R Acid-base disorder: - bicarb down to 18, will hold off on replacement as he still has significant swelling. Hypertension: - target blood pressures less than 130/90 mm Hg - compliance: - continue Hydralazine 100 mg b.i.d. isosorbide ER 20, eplerenone, Entresto. Anemia of chronic kidney disease: - Hb 9.4, macrocytic - will get iron, TIBC, ferritin levels Mineral bone disease: - will get phos, vitamin-D and PTH levels Orders: Orders ANCA Vasculitides Today E83.42 - Hypomagnesemia, N18.9 - Chronic kidney disease, unspecified Complement C3 Today E83.42 - Hypomagnesemia, N18.9 - Chronic kidney disease, unspecified Protein Electrophoresis,Ran Ur Today E83.42 - Hypomagnesemia, N18.9 - Chronic kidney disease, unspecified Basic Metabolic Panel Today E83.42 - Hypomagnesemia, N18.9 - Chronic kidney disease, unspecified Microalbumin, Random (w Creat) Today E83.42 - Hypomagnesemia, N18.9 - Chronic kidney disease, unspecified Phosphorus Today E83.42 - Hypomagnesemia, N18.9 - Chronic kidney disease, unspecified Parathyroid Hormone Intact Today E83.42 - Hypomagnesemia, N18.9 - Chronic kidney disease, unspecified IRON PROFILE Today E83.42 - Hypomagnesemia, N18.9 - Chronic kidney disease, unspecified PSA, Ultra Sensitive Today E83.42 - Hypomagnesemia, N18.9 - Chronic kidney disease, unspecified US renal BI 1 Week E83.42 - Hypomagnesemia, N18.9 - Chronic kidney disease, unspecified Basic Metabolic Panel 2 Months E83.42 - Hypomagnesemia, N18.9 - Chronic kidney disease, unspecified Microalbumin, Random (w Creat) 2 Months E83.42 - Hypomagnesemia, N18.9 - Chronic kidney disease, unspecified UA and rflx microscopic 2 Months E83.42 - Hypomagnesemia, N18.9 - Chronic kidney disease, unspecified Magnesium 2 Months E83.42 - Hypomagnesemia, N18.9 - Chronic kidney disease, unspecified Hepatitis B,C Profile Today E83.42 - Hypomagnesemia, N18.9 - Chronic kidney disease, unspecified HIV Ab/Ag Today E83.42 - Hypomagnesemia, N18.9 - Chronic kidney disease, unspecified KYLEIGH Reflex Titer and Pattern Today E83.42 - Hypomagnesemia, N18.9 - Chronic kidney disease, unspecified Complement C4 Today E83.42 - Hypomagnesemia, N18.9 - Chronic kidney disease, unspecified Protein Electrophoresis, Serum Today E83.42 - Hypomagnesemia, N18.9 - Chronic kidney disease, unspecified Cullen/Lambda Light Chain Serum Today E83.42 - Hypomagnesemia, N18.9 - Chronic kidney disease, unspecified UA and rflx microscopic Today E83.42 - Hypomagnesemia, N18.9 - Chronic kidney disease, unspecified Creatinine Urine Today E83.42 - Hypomagnesemia, N18.9 - Chronic kidney disease, unspecified Vitamin D 25-OH Total Today E83.42 - Hypomagnesemia, N18.9 - Chronic kidney disease, unspecified Magnesium, Random Urine Today E83.42 - Hypomagnesemia, N18.9 - Chronic kidney disease, unspecified Medications: New tamsulosin 0.4 mg PO BEDTIME 90 caps 3RF 90 days Coding Level of Care Code New Pt Level 5 (40675) Diagnoses Hypomagnesemia E83.42 Chronic kidney disease N18.9
[2024-11-08 14:29] VITALS: BP 126/60; PULSE 79; O2SAT 98; BMI 26.5
--- OUTSIDE RECORDS SUMMARY | 2024-11-08 14:56 | XMS_ITS | Encounter Summary ---
Author Organization [facility] Address [address] [place] [address] Phone Care Team Providers Care Levi Maker Name Role Phone Maureen Mata MD Primary Care Provider Reason for Referral * MRI/CAT Scan - Closed Specialty Diagnoses / Procedures Referred By Contac t Referred To Contact Radiology Diagnoses Spinal stenosis, lumbosacral region Radiculopathy, lumbar region Procedures CT Lumbar Spine [place] [address] [address] Phone: tel: fax: Referral ID Status Reason Start Date Expiration Date Visits Re quested Visits Authorized [id number] Closed 08/17/2024 08/17/2025 1 1 Encounter Details Date Type Department Care Team (Latest Contact Info) Description 08/17/2024 Transcribe Orders Virtual Department [address] [place] [address] [place] [address] [address] Spinal stenosis, lumbosacral region (Primary Dx); Radiculopathy, lumbar region Social History Tobacco Use Types Packs/Day Years Used Date Smoking Tobacco: Never Assessed Sex and Gender Information Value Date Recorded Sex Assigned at Not on file Legal Sex Male 2:19 PM EDT Gender Identity Not on file Sexual Orientation Not on file documented as of this encounter Plan of Treatment Not on file documented as of this encounter Results * CT LUMBAR SPINE WITHOUT CONTRAST (08/26/2024 3:53 PM EDT) Anatomical Region Laterality Modality L-spine Computed Tomogra phy 08/30/2024 3:10 PM EDT Impressions 08/30/2024 3:20 PM EDT 1. Moderate degenerative changes of the lumbar spine with multilevel degenerative disc disease (most notable at L1-2 and L5-S1), small multilevel posterior disc bulges and disc osteophyte complexes, and multilevel facet arthropathy (most prominent at L4/L5). 2. Schmorl's node/endplate erosion along the inferior endplate of L1, less likely relating to prior compression fracture. 3. Multilevel central canal and neural foraminal stenosis, as further detailed above. This would be far better assessed by MRI patient is able. (Partially imaged spinal neural stimulator device, which may preclude MRI). 4. Minimal retrolisthesis at L1-2. Minimal scoliosis. Narrative 08/30/2024 3:[address] LUMBAR SPINE WITHOUT CONTRAST Referring clinician's provided indication for this examination in Epic: Outside Radiology Order; spinal stenosis HISTORY: Chronic lower back pain. TECHNIQUE: Multidetector-row CT of the lumbar spine was performed without intravenous contrast using tailored dose modulation techniques. Images were reconstructed in the axial, coronal, and sagittal planes. COMPARISON: None FINDINGS: LUMBAR SPINE: Alignment and Vertebrae: Probable minimal scoliosis. Minimal retrolisthesis at L1-2 of a few millimeters. Discs and Endplates: There is a Schmorl's node or area of endplate erosion along the inferior endplate of L1, less likely relating to prior compression deformity. Vertebral bodies are otherwise preserved in height. Limited assessment of the discs by CT. There is disc degeneration which is most prominent at L1-2 with some disc space narrowing and vacuum phenomena. Limited assessment of the disc bulges by CT though there appear to be at least small multilevel posterior disc bulges and small posterior disc osteophyte complexes at most levels throughout the lumbar spine, causing at least mild effacement of the ventral CSF at most levels. At L2-3 this likely contributes to moderate central canal stenosis along with facet arthropathy as well as at L3-4. There is also at least mild central canal stenosis suspected at L4-5 and more significant hypertrophic facet arthropathy at this level. CT provides very limited neural foraminal assessment though there is likely mild multilevel neural foraminal stenosis which is suspected to be most prominent at L5-S1 bilaterally and to a lesser degree at L4-5 and above. There appears to be a partially imaged lead from a spinal neurostimulator device, which extends off the superior aspect of the images towards the thoracic spine. Soft Tissue: Limited assessment of the paraspinal soft tissues. Diffuse vascular calcification. Probable partial imaging of small dependent gallstones. Small layering pleural effusion or pleural thickening in the left posterior lung. Procedure Note Tam Horowitz MD - 08/30/2024 CT LUMBAR SPINE WITHOUT CONTRAST Referring clinician's provided indication for this examination in Epic:Outside Radiology Order; spinal stenosis HISTORY: Chronic lower back pain. TECHNIQUE: Multidetector-row CT of the lumbar spine was performed withoutintravenous contrast using tailored dose modulation techniques. Imageswere reconstructed in the axial, coronal, and sagittal planes. COMPARISON: None FINDINGS: LUMBAR SPINE: Alignment and Vertebrae: Probable minimal scoliosis. Minimalretrolisthesis at L1-2 of a few millimeters. Discs and Endplates: There is a Schmorl's node or area of endplate erosionalong the inferior endplate of L1, less likely relating to priorcompression deformity. Vertebral bodies are otherwise preserved in height.Limited assessment of the discs by CT. There is disc degeneration which ismost prominent at L1-2 with some disc space narrowing and vacuumphenomena. Limited assessment of the disc bulges by CT though there appearto be at least small multilevel posterior disc bulges and small posteriordisc osteophyte complexes at most levels throughout the lumbar spine,causing at least mild effacement of the ventral CSF at most levels. AtL2-3 this likely contributes to moderate central canal stenosis along withfacet arthropathy as well as at L3-4. There is also at least mild centralcanal stenosis suspected at L4-5 and more significant hypertrophic facetarthropathy at this level. CT provides very limited neural foraminalassessment though there is likely mild multilevel neural foraminalstenosis which is suspected to be most prominent at L5-S1 bilaterally andto a lesser degree at L4-5 and above. There appears to be a partiallyimaged lead from a spinal neurostimulator device, which extends off thesuperior aspect of the images towards the thoracic spine. Soft Tissue: Limited assessment of the paraspinal soft tissues. Diffusevascular calcification. Probable partial imaging of small dependentgallstones. Small layering pleural effusion or pleural thickening in theleft posterior lung. IMPRESSION: 1. Moderate degenerative changes of the lumbar spine with multileveldegenerative disc disease (most notable at L1-2 and L5-S1), smallmultilevel posterior disc bulges and disc osteophyte complexes, andmultilevel facet arthropathy (most prominent at L4/L5). 2. Schmorl's node/endplate erosion along the inferior endplate of L1,less likely relating to prior compression fracture. 3. Multilevel central canal and neural foraminal stenosis, as furtherdetailed above. This would be far better assessed by MRI patient is able.(Partially imaged spinal neural stimulator device, which may precludeMRI). 4. Minimal retrolisthesis at L1-2. Minimal scoliosis. Jong WATSON IMG CT XSPECIALTY ORDERABLES F inal Result documented in this encounter Visit Diagnoses Diagnosis Spinal stenosis, lumbosacral region- Primary Radiculopathy, lumbar region Thoracic or lumbosacral neuritis or radiculitis, unspecified Spinal stenosis, lumbosacral region Radiculopathy, lumbar region Thoracic or lumbosacral neuritis or radiculitis, unspecified documented in this encounter Care Teams Levi Maker Relationship Specialty Start Date End Date Maureen Mata MD PCP - General Internal Medicine 08/22/24 documented as of this encounter Additional Source Comments The information contained in this document represents components of the legal health record. It is not the complete legal health record.[facility]
--- OUTSIDE RECORDS SUMMARY | 2024-11-08 14:56 | XMS_ITS | Clinical Summary ---
Author Organization [facility] [address] [facility] Address [address] [place] [address] Phone Care Team Providers Care Crystalizer Tender Name Role Phone Unavailable Primary Care Provider [...] (one) time each day. 02/22/20 25 Active rl-ith-LD-vit C-ulnrcy-ksraihy (PreserVision AREDS 2 Plus MV) 200 mcg-15 mcg- 5 mg-1 mg capsule Take by mouth. Activ e B complex-vitamin C tablet Take 1 tablet by mouth 1 (one) time each day. 30 tablet 02/22/20 25 Active omega 0-avd-sjv-fish oil (Fish OiL) 1,200 (144-216) mg capsule [...] season) 2023 Cholesterol Screening (Lipid Panel) 01/30/2024 Falls Risk Assessment 01/30/2024 Medicare Annual Wellness Visit 01/30/2024 Social Influencers of Health Screening 01/30/2024 Diabetes: Annual Urine Albumin-Creatinine Ratio (uACR) 02/22/2024 Diabetes: Blood Sugar Contro l Test (HGBA1C) 02/22/2024 Hypertension/CHF/CAD Annual BMP Blood Test 02/22/2024 Depression Screening 04/06/2024 Influenza Vaccine (#1) 2024 DTaP,Tdap,and Td Vaccines [...] age to complete this topic Insurance MEDICARE [facility]
== END 2024-11-08 15:11 | disposition home or self-care (01) ==
LOC: HO.HKAS 14:16
PROVIDERS: PCP Internal Medicine; Referring Provider Internal Medicine; Visit Provider Internal Medicine Critical Care Medicine
DX: E83.42 Hypomagnesemia (principal); N18.9 Chronic kidney disease, unspecified
CPT/HCPCS: 99204

== ENCOUNTER 2024-11-08 15:00 | Outpatient (REF) | payer MEDICARE, BC, SELFPAY | END 2024-11-08 15:01 | disposition home or self-care (01) | LOC: HO.LAB 15:00 | PROVIDERS: Visit Provider Internal Medicine Critical Care Medicine | DX: Z13.89 Encounter for screening for other disorder (principal) ==

== ENCOUNTER 2024-11-18 12:53 | Outpatient (REF) | payer MEDICARE, BC, SELFPAY ==
--- NOTE | ~2024-11-18 | US_ITS ---
EXAMINATION: US KIDNEY BILATERAL HISTORY: N18.9 - Chronic kidney disease, unspecified TECHNIQUE: Real-time grayscale ultrasound imaging of the kidneys was performed and images were reviewed. COMPARISON: There are no prior studies available for comparison. FINDINGS: Right kidney: The right kidney measures 11.7 x 4.4 x 5.6 cm. There is renal cortical thinning. Multiple cysts are noted, the largest of which is at the upper pole measuring 2.2 x 2.3 x 2.1 cm. There is no hydronephrosis or renal calculi. There is a small amount of perinephric fluid. Left Kidney: The left kidney measures 11.6 x 6.1 x 4.9 cm. There is renal cortical thinning. Multiple cysts are noted, the largest of which is at the lower pole measuring 1.0 x 0.8 x 1.1 cm. There is no hydronephrosis or renal calculi. There is a small amount of perinephric fluid. US/US renal BI IMPRESSION: Bilateral renal cortical thinning. Bilateral renal cysts as described. Small amount of perinephric fluid bilaterally. Electronically signed by: Ashish Olivares MD 11/18/2024 01:44 PM EDT
--- OUTSIDE RECORDS SUMMARY | 2024-11-18 12:56 | XMS_ITS | Patient Health Record ---
Author Organization [facility] [address] Address [address] [place] [address] Care Team Providers Care Resident Care Aide Name Role Phone Stewart Medel Primary Care Provider Unavailab humera Leisa Garrett Unavailable [phone] Reason For Referral No Information Medications Medication [...] day Active glipiZIDE 2.5 mg Act chayo [place] 3 1000 MG 1 capsule Orally Once [...] Problem Acquired hammer toe of right foot (27601788810 49773) Other hammer toe(s) (acquired), right foot (M20.41) Active confirmed Problem Acquired hammer toe of left foot (47718784310 41963) Other hammer toe(s) (acquired), left foot (M20.42) Active confirmed Problem Other atherosclerosis of [place] arteries of extremities, 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) Active confirmed Plan Of Treatment No Information Insurance Providers Payer Name Payer Address Payer Phone Subscriber Number Group Number Insured Name Patient Relationship to Insured Coverage Start Date Coverage End Date Medicare National [employer]t [employer] [address] [place] [address] [phone] [id number] Tam Dunaway Self - patient is the insured [facility] [address] [place] [address] [id number] Tam Dunaway Self - patient is the insured Medical (General) History Medical History History ICD Code Back,Hip,and Knee pain Gout High blood pressure Scarlet fever Measles Mumps Chicken pox Surgical History Surgery Date(Month/Year) triple bypass
--- OUTSIDE RECORDS SUMMARY | 2024-11-18 12:56 | XMS_ITS | Encounter Summary ---
Author Organization [facility] Address [address] [facility] [address] [place] [address] Phone Care Team Providers Care Butadiene Convertor Operator Name Role Phone Maureen Mata MD Primary Care Provider [phone] Reason for Referral * MRI/CAT Scan - Closed Specialty Diagnoses / Procedures Referred By Contac t Referred To Contact Radiology Diagnoses Spinal stenosis, lumbosacral region Radiculopathy, lumbar region Procedures CT Lumbar Spine [place] [address] [address] Phone: tel: fax: Referral ID Status Reason Start Date Expiration Date Visits Re quested Visits Authorized [id number] Closed 08/17/2024 08/17/2025 1 1 Encounter Details Date Type Department Care Team (Latest Contact Info) Description 08/17/2024 Transcribe Orders Virtual Department [address] [place] [address] [place] [address] [address] Spinal stenosis, lumbosacral region (Primary Dx); Radiculopathy, [...] unspecified documented in this encounter Care Teams Butadiene Convertor Operator Relationship Specialty Start Date End Date Maureen Mata MD PCP - General Internal Medicine 08/22/24 documented as of this encounter Additional Source Comments The information contained in this document represents components of the legal health record. It is not the complete legal health record.[facility]
--- OUTSIDE RECORDS SUMMARY | 2024-11-18 12:56 | XMS_ITS | Patient Health Record ---
Author Organization [facility] Address [address] [place] [address] Care Team Providers Care Public Relations Senior Associate Name Role Phone Maureen Donovan M.D. Primary Care Provider Andre Ashish Mantilla Unavailable [phone] Reason For Referral No Information Medications Medication SIG (Take, Route, Frequency, Duration) Notes Start Date End Date Status Aspir-81 81mg Active glipiZIDE 2.5mg Acti ve Metoprolol & Diet Manage Prod 25mg Active Norvasc 10mg Active Allopurinol 300mg Ac tive Ray 3 Active Vitamin D-3 1000iu 04/06/2024 04/06/2024 Active Problems Problem Type SNOMED Code ICD Code Onset Dates Problem Status W/U Status Risk Notes Problem Already on aspirin (672586842) Long-term (current) use of aspirin (V58.66) Active confirmed Problem Colon cancer screening (V76.51) Active confirmed Plan Of Treatment Future Test Test Name Order Date COLONOSCOPY 06/15/2012 Next Appt Details Provider Name:Ashish Gr Chucky , 11/23/2024 03:55:00 PM, [address], [address], [place], [address], Insurance Providers Payer Name Payer Address Payer Phone Subscriber Number Group Number Insured Name Patient Relationship to Insured Coverage Start Date Coverage End Date MEDICARE OF [place] [address] [place] [address] [phone] [id number] BRAD ROTHMAN SR Self - patient is the insured [facility] [address] [place], [place] [id number] [phone] [id number] BRAD ROTHMAN SR Self - patient is the insured Medical (General) History Medical History History ICD Code NIDDM hypertension Denies [place],CVA,Lung disease,renal disease CAD-3V CABG in 02/2011 Gout Surgical History Surgery Date(Month/Year) 3 V CABG in 02/2011 knee Facial skin CA on the left side
--- OUTSIDE RECORDS SUMMARY | 2024-11-18 12:56 | XMS_ITS | Clinical Summary ---
Author Organization [facility] [address] [facility] Address [address] [place] [address] Phone Care Team Providers Care Seam Stayer Name Role Phone Unavailable Primary Care Provider [...] (one) time each day. 02/22/20 25 Active to-emg-IM-vit J-mfqjqs-tcsoqun (PreserVision AREDS 2 Plus MV) 200 mcg-15 mcg- 5 mg-1 mg capsule Take by mouth. Activ e B complex-vitamin C tablet Take 1 tablet by mouth 1 (one) time each day. 30 tablet 02/22/20 25 Active omega 1-gyf-hnd-fish oil (Fish OiL) 1,200 (144-216) mg capsule [...] age to complete this topic Insurance MEDICARE [facility]
--- OUTSIDE RECORDS SUMMARY | 2024-11-18 12:56 | XMS_ITS ---
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 He was seen on August 23, 2024, at which time consultation for mohs surgery was performed.The patient presents for Mohs. Medications Medication Generic Name RxNorm Strength Strength Unit Route Dose Dose Form Frequency Date Started Date Ended Status Indication Sig ketoconazol e ketocona zole 717125 2 % Topica l cream bid 04/27/19 21 active Appl y twic e a day to feet for 4 week s. mupirocin mupiroci n 626465 2 % Topica l ointm ent 04/27/19 21 suspend ed Appl y twic e a day to biop sy site unti l heal ed. Adult Low Dose Aspirin aspirin 81 mg Oral 1 table t, delay ed relea se (radha montoya) daily active allopurinol 840580 300 mg Oral tabl e t daily active doxycycline hyclate doxycycl ine hyclate 7460286 100 mg Oral 1 capsu le BID 11/16/19 25 active Take one pill twic e slime y with food and wate r x 5 days . Medi a acti on can caus e sun sens itiv ity use extr a prec auti on whil e in the sun Entresto 5757577 97-103 mg Oral table t daily active Farxiga 7949536 5 mg Oral table t daily active furosemide 303886 20 mg Oral table t daily active hydralazine 933944 25 mg Oral tabl e t daily active isosorbide mononitrate 048320 60 mg Oral Table t, Exten ded Relea se 24 hr daily active magnesium oxide magnesiu m oxide Oral suspend ed omeprazole 20020515 40 mg Oral capsu le,de layed relea se (ente sejal coate d) daily active rosuvastati n 445200 10 mg Oral table t daily active tamsulosin 816917 0.4 mg Oral capsu le daily active Problems Problem Code Type Status Date of Diagnosis Date of Resolution Basal cell carcinoma of face (disorder) 449322163( SNOMED) Diagnosis active 11/15/2024 Surgical follow-up (finding) 594525017( SNOMED) Diagnosis active 09/28/2024 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) 309440709( SNOMED) Diagnosis active 09/15/2024 Basal cell carcinoma of ear (disorder) 269199216( SNOMED) Diagnosis active 09/15/2024 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) 924180539( SNOMED) Diagnosis active 08/23/2024 Basal cell carcinoma of ear (disorder) 730072655( SNOMED) Diagnosis active 08/23/2024 Basal cell carcinoma of face (disorder) 347702761( SNOMED) Diagnosis active 08/23/2024 Neoplasm of uncertain behavior of skin (disorder) 96205451(S NOMED) Diagnosis active 07/01/2024 Actinic keratosis (disorder) ( SNOMED) Diagnosis active 07/01/2024 Actinic keratosis (disorder) ( SNOMED) Diagnosis active 12/30/2023 Inflamed seborrheic keratosis (disorder) 237746987( SNOMED) Diagnosis active 12/30/2023 Onychomycosis caused by dermatophyte (disorder) 765956504( SNOMED) Diagnosis active 12/30/2023 Disorder of pigmentation (disorder) 408286184( SNOMED) Diagnosis active 12/30/2023 Melanocytic nevus of left lower limb (disorder) 5475989334 68464(SNOM ED) Diagnosis active 12/30/2023 Melanocytic nevus of trunk (disorder) 267408405( SNOMED) Diagnosis active 12/30/2023 Melanocytic nevus of left upper limb (disorder) 0212133515 20412(SNOM ED) Diagnosis active 12/30/2023 Melanocytic nevus of right upper limb (disorder) 638383932( SNOMED) Diagnosis active 12/30/2023 Melanocytic nevus of right lower limb (disorder) 8190218463 32505(SNOM ED) Diagnosis active 12/30/2023 Hemangioma of skin and subcutaneous tissue (disorder) 330643694( SNOMED) Diagnosis active 12/30/2023 Seborrheic keratosis (disorder) 823421788( SNOMED) Diagnosis active 12/30/2023 History of malignant neoplasm of skin (situation) 583864602( SNOMED) Diagnosis active 12/30/2023 Actinic keratosis (disorder) ( SNOMED) Diagnosis active 07/17/2023 Actinic keratosis (disorder) ( SNOMED) Diagnosis active 05/29/2023 Actinic keratosis (disorder) ( SNOMED) Diagnosis active 04/30/2023 Actinic keratosis (disorder) ( SNOMED) Diagnosis active 03/06/2023 History of malignant neoplasm of skin (situation) 039542470( SNOMED) Diagnosis active 03/06/2023 Seborrheic keratosis (disorder) 880389502( SNOMED) Diagnosis active 03/06/2023 Inflamed seborrheic keratosis (disorder) 870444510( SNOMED) Diagnosis active 12/05/2022 Actinic keratosis (disorder) ( SNOMED) Diagnosis active 12/05/2022 Seborrheic keratosis (disorder) 223655612( SNOMED) Diagnosis active 12/05/2022 Scar conditions and fibrosis of skin (disorder) 975980889( SNOMED) Diagnosis active 10/11/2021 Actinic keratosis (disorder) ( SNOMED) Diagnosis active 10/11/2021 Seborrheic keratosis (disorder) 045553741( SNOMED) Diagnosis active 10/11/2021 Personal history of other malignant neoplasm of skin Z85.828(IC D-10) Diagnosis active 04/27/2020 Neoplasm of uncertain behavior of skin D48.5(ICD- 10) Diagnosis active 04/27/2020 Tinea pedis B35.3(ICD- 10) Diagnosis active 04/27/2020 Tinea unguium B35.1(ICD- 10) Diagnosis active 04/27/2020 Actinic keratosis L57.0(ICD- 10) Diagnosis active 04/27/2020 Melanocytic nevi of trunk D22.5(ICD- 10) Diagnosis active 04/27/2020 Other seborrheic keratosis L82.1(ICD- 10) Diagnosis active 04/27/2020 Other melanin hyperpigmentation L81.4(ICD- 10) Diagnosis active 04/27/2020 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) Diagnosis active 04/27/2020 Actinic keratosis L57.0(ICD- 10) Diagnosis active 05/04/2019 Actinic keratosis L57.0(ICD- 10) Diagnosis active 04/11/2019 Basal cell carcinoma of skin of other parts of face C44.319(IC D-10) Diagnosis active 04/11/2019 Other seborrheic keratosis L82.1(ICD- 10) Diagnosis active 04/11/2019 Hemangioma of skin and subcutaneous tissue D18.01(ICD -10) Diagnosis active 04/11/2019 Melanocytic nevi, unspecified D22.9(ICD- 10) Diagnosis active 04/11/2019 Personal history of other malignant neoplasm of skin Z85.828(IC D-10) Diagnosis active 04/11/2019 Other melanin hyperpigmentation L81.4(ICD- 10) Diagnosis active 04/11/2019 Neoplasm of uncertain behavior of skin (disorder) 24857186(S NOMED) Diagnosis active 07/20/2017 Senile hyperkeratosis (disorder) 152520834( SNOMED) Diagnosis active 11/26/2015 Neoplasm of uncertain behavior of skin (disorder) 75012074(S NOMED) Diagnosis active 02/20/2014 Hypercholesterolemia (disorder) 69671850(S NOMED) Problem active Actinic keratosis (disorder) 186447953( SNOMED) Problem active Arthritis (disorder) 0598675(SN OMED) Problem active Benign prostatic hyperplasia (disorder) 153741049( SNOMED) Problem active Increased blood pressure (finding) 21677729(S NOMED) Problem active Hypercholesterolemia (disorder) 70176844(S NOMED) Problem active Squamous cell carcinoma (disorder) 111155155( SNOMED) Problem active History of clinical finding in subject (situation) 658460890( SNOMED) Problem active Basal cell carcinoma of skin (disorder) 408812831( SNOMED) Problem active Results No data Encounters Service provided at [facility], [address] [place] [address], [address], [place], [place] [id number]. Office phonenumber is [phone]. Office fax number is [phone]. Encounter Diagnosis Location Date / Time Type Nodular Basal Cell Carcinoma (C44.319) [facility] 11:45:00 UTC NI Reason For Referral No data Procedures Procedure Date Mohs surgery (procedure) 11/15/2024 12:0 0 am UTC Removal of suture (procedure) 09/28/2024 12:00 am UTC Mohs surgery (procedure) 09/15/2024 12:0 0 am UTC Destruction of premalignant skin lesion (procedure) 07/01/2024 12:00 am UTC Shave biopsy (procedure) 07/01/2024 12:0 0 am UTC Cryotherapy of skin lesion with liquid n itrogen (procedure) 12/30/2023 12:00 am UTC Destruction of premalignant skin lesion (procedure) 12/30/2023 12:00 am UTC Destruction of premalignant skin lesion (procedure) 07/17/2023 12:00 am UTC Photodynamic therapy of skin (procedure) 05/29/2023 12:00 am UTC Photodynamic therapy of skin (procedure) 04/30/2023 12:00 am UTC Cryotherapy of skin lesion with liquid n itrogen (procedure) 03/06/2023 12:00 am UTC Cryotherapy of skin lesion with liquid n itrogen (procedure) 12/05/2022 12:00 am UTC Cryotherapy of skin lesion with liquid n itrogen (procedure) 10/11/2021 12:00 am UTC Cryotherapy of skin lesion with liquid n itrogen (procedure) 04/27/2020 12:00 am UTC Shave biopsy (procedure) 04/27/2020 12:0 0 am UTC Documentation of past medical history (p rocedure) Documentation of past medical history (p rocedure) Documentation of past medical history (p rocedure) Documentation of past medical history (p rocedure) Documentation of past medical history (p rocedure) Documentation of past medical history (p rocedure) Documentation of past medical history (p rocedure) Documentation of past medical history (p rocedure) Documentation of past medical history (p rocedure) Documentation of past medical history (p rocedure) Documentation of past medical history (p rocedure) Documentation of past medical history (p rocedure) Documentation of past medical history (p rocedure) Documentation of past medical history (p rocedure) Documentation of past medical history (p rocedure) Documentation of past medica l history (procedure) Triple bypass 2009 Review Of Systems Provider reviewed on Nov 15, 2024.A focused review of systems was performed including Allergic / Immunologic, Cardiovascular, Constitutional / Symptom, ENT and Mouth, Eyes, Gastrointestinal (G.I.), Hematologic / Lymphatic, Integumentary, Neurological, Psychiatric, and Respiratory and was notable for problems with bleeding and shortness of breath.No Problems With Healing, No Problems With Scarring(hypertrophic Or Keloid), No Immunosuppression, No Chest Pain, No Fever Or Chills, No Sore Throat, No Blurry Vision, No Abdominal Pain, No Headaches, No Seizures, No Anxiety, And No Depression. Assessment 1.Nodular Basal Cell CarcinomaMohs Surgery: left medial alevism; Consent Type - Use Body Location ToSelect Appropriate Consent; Eye Shield Used - No; Surgeon Performing Repair - Tam Sanchez MD; Number of Stages - 1; Primary Defect Length in cm (Final Defect Size - Required for Flaps/Grafts) - 1.8; Primary Defect Width in cm (Final Defect Size - Required for Flaps/Grafts) - 1.6; Repair type - Complex Repair; Postop Diagnosis - same; Reasons for Post-op Medication - To reduce the risk of post-operative infection.Prescription: doxycycline hyclate 100 mg capsule PO Frequency: BID Plan of Care Code Detail Instructions 2253239 doxycycline hyclate 100 mg capsu le Take one pill twice daily with food and water x 5 days. Media action can cause sun sensitivity use extra precaution while in the sun 2546016 doxycycline hyclate 100 mg capsu le Take 1 capsule by mouth twice daily x 5 days with food and a glass of water. can cause sun sensitivity use sun protection while taking. 847223 Valtrex 1 gram tablet Take 2 pil ls every 12 hours the day before and the day of the procedure 936106 ketoconazole 2 % topical cream A pply twice a day to feet for 4 weeks. 350468 mupirocin 2 % topical ointment A pply twice a day to biopsy site until healed. Instructions No Data Social History Code Activity Start Date End Date 5092315 (SNOMED) Former smoker Sex male Sexual orientation Unspecified Gender identity Unspecified Vital Signs Vital Sign Measurement Date Recorded Heart Rate 86 /min ThuNov 15 12:15 :37 [facility] 2024 Systolic Blood Pressure 132 mm[Hg] ThuNov 15 12:15:37 [facility] 2024 Diastolic Blood Pressure 64 mm[Hg] ThuNov 15 12:15:37 [facility] 2024
== END 2024-11-18 12:54 | disposition home or self-care (01) ==
LOC: HO.US 12:53
PROVIDERS: PCP Internal Medicine; Visit Provider Internal Medicine Critical Care Medicine
DX: E83.42 Hypomagnesemia (principal); N18.9 Chronic kidney disease, unspecified
CPT/HCPCS: 76775

== ENCOUNTER → 2024-11-18 12:55 | Outpatient (BNV) | payer MEDICARE, BC, SELFPAY | PROVIDERS: PCP Internal Medicine; Visit Provider Radiology Diagnostic Radiology | DX: N18.9 Chronic kidney disease, unspecified (principal) | CPT/HCPCS: 76775 ==

== ENCOUNTER 2024-11-25 10:25 | Outpatient (REF) | payer MEDICARE, BC, SELFPAY ==
--- OUTSIDE RECORDS SUMMARY | 2024-11-23 11:55 | XMS_ITS ---
Author Organization [facility] Address [address] [place] [address] Care Team Providers Care Brake Lining Finisher Name Role Phone Maureen Donovan M.D. Primary Care Provider Unavail able Ashish Locke Unavailable [phone] Allergies No Known Allergies REASON FOR VISIT diarrhea, anemia Medications Medication SIG (Take, Route, Frequency, Duration) Notes Start Date End Date Status Metoprolol & Diet Manage Prod 25mg Active Norvasc 10mg Active glipiZIDE 2.5mg Acti ve [place] 3 Active Aspir-81 81mg Active Tamsulosin HCl 0.4 MG 1 capsule Orally O nce a day Active Omeprazole 40 MG 1 capsule 1/2 to 1 h our before morning meal Orally Once a day Active Allopurinol 300mg 1 tablet po once daily Active Rosuvastatin Calcium 10 MG 1 tablet Oral ly Once a day Active Entresto 97-103 MG 1 tablet Orally Twic e a day Active Farxiga 10 MG 1 tablet Orally Once a day Active amLODIPine Besy-Benazepril HCl 5-10 MG as directed Orally Active Vitamin D3 25 MCG (1000 UT) 1 tablet Ora lly Once a day Active PreserVision AREDS 2 - as directed Orally Active Magnesium Oxide 400 MG 1 tablet with shila d Orally Once a day Active Vitamin D-3 1000iu A ctive Furosemide 20 MG 1 tablet Orally Once a day Active Eplerenone 25 MG 1 tablet Orally Once a day Active hydrALAZINE HCl 100 MG 1 tablet with shila d Orally three times a day Active Isosorbide Mononitrate Active Social History Tobacco Use: Social History Observation Description Date Details (start date - stop date) Never Smoker NA - NA Alcohol Screen Question Answer Notes Did you have a drink contain ing alcohol in the past year? Yes Points 1 Interpretation Negative How often did you have 6 or more drinks on one occasion in the past year? Never (0 point) How many drinks did you have on a typical day when you were drinking in the past year? 1 or 2 drinks (0 point) How often did you have a dri nk containing alcohol in the past year? Monthly or less (1 point) Tobacco Control (Standard) Question Answer Notes Tobacco use: Nonsmoker AUDIT-C (Standard) Question Answer Notes Did you have a drink containing alcohol in the p ast year? No Points 0 Interpretation Negative Section Notes: Nonsmoker 8-9 yrs ago; no si g. alcohol Problems Problem Type SNOMED Code ICD Code Onset Dates Problem Status W/U Status Risk Notes Problem Anemia (623731423) Anemia (D64.9) Active confirmed Vital Signs Temperature 96.9 degrees Fahrenheit 11/24/19 25 Blood pressure systolic 001 mm Hg 11/24/19 25 Blood pressure diastolic 01 mm Hg 025 Heart Rate 72 /min 11/23/2024 Height 70.5 in 11/23/2024 Weight 196.9 lbs 11/23/2024 BMI 27.85 kg/m2 11/23/2024 Encounters Encounter Location Date Provider Diagnosis [facility] [address] [place] [address] 11/23/2024 Ashish Locke Anemia D64.9 Assessments Encounter [...] w DIFF 11/23/2024 CELIAC PANEL #10 11/23/2024 Ferritin 11/23/2024 Vitamin B12 and Folate 11/23/2024 Next Appt Details Follow Up: 6 Months, Reason: Provider Name:Ashish Locke , 05/23/2025 10:20:00 AM, [address], [address], [place], [address], Progress Notes * TAM ROTHMAN SrDOB:06/1939 (84 yo M)Acc No.[id number]:11/23/2024 Progress Notes Patient: TAM ARAUJO Sr Provider: Mel Locke MD :1940 A ge:84 Y S ex:Male Date:11/23/2024 Address:[address] [place], [place] [id number] Pcp:Maureen Donovan M.D. Subjective: * Chief Complaints: * 1 . Diarrhea, anemia. * HPI: i ncontinence: I saw Tam in consultation today in regard to further evaluation of his anemia and loose bowel movements. He was accompanied by his . I last saw Tam in 2012 at which time he underwent [...] diuretics. He is followed by cardiology at [facility]. He is status post a previous coronary artery bypass at [facility] as well. He also describes some chronic [...] negative for C. difficile as well. * Medical History: N IDDM, Hypertension, Denies MT,CVA,Lung disease,renal disease, CAD-3V CABG in 02/2011, Gout, Skin cancer, COVID pneumonia, CHF, Negative screening colonoscopy in 2012, Anemia. 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 * Hospitalization/Major Diagno stic Procedure: D enies Past Hospitalization. * Family History: No family hx of colorectal cancer. * [...] iscellaneous: M arital status: . 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 D rug/Alcohol: A PAULO-C (Standard) D id you have a drink containing alcohol in the past year? N o,?Points 0 , I nterpretation N egative. N onsmoker 8-9 yrs ago; no sig. alcohol. * Medications: T aking hydrALAZINE HCl 100 MG Tablet 1 tablet with food Orally three times a day , Taking Isosorbide Mononitrate , Taking Furosemide 20 MG Tablet 1 tablet Orally Once a day , Taking Eplerenone 25 MG Tablet 1 tablet Orally Once a day , Taking Farxiga 10 MG Tablet 1 tablet Orally Once a day , Taking amLODIPine Besy-Benazepril HCl 5- 10 MG Capsule as directed Orally , Taking Vitamin D3 25 MCG (1000 UT) Tablet 1 tablet Orally Once a day , Taking PreserVision AREDS 2 - Capsule as directed Orally , Taking Magnesium Oxide 400 MG Tablet 1 tablet with food Orally Once a day , Taking Tamsulosin HCl 0.4 MG Capsule 1 capsule Orally Once a day , Taking Omeprazole 40 MG Capsule Delayed Release 1 capsule 1/2 to 1 hour before morning meal Orally Once a day , Taking Rosuvastatin Calcium 10 MG Tablet 1 tablet Orally Once a day , Taking Entresto 97-103 MG Tablet 1 tablet Orally Twice a day , Taking Allopurinol 300mg 1 tablet po once daily , Taking Aspir-81 81mg , Taking glipiZIDE 2.5mg , Taking Metoprolol & Diet Manage Prod 25mg , Taking Norvasc 10mg , Taking [place] 3 , Taking Vitamin D-3 1000iu , Medication List reviewed and reconciled with the patient * Allergies: N .K.D.A. Objective: * Vitals: W t:196.9lbs, Ht: 70.5 in, BMI:27.85Index, BP:001/01mm Hg, HR:72/min, Temp:96.9, Wt-k.31. Assessment: * Assessment: 1. A nemia - D64.9 (Primary) Plan: * Treatment: * Preventive Medicine: Counseling: C are goal follow-up plan: A kareen Normal BMI Follow-up G iving encouragement to exercise. Screenings: F all Risk Screening F all Risk Assessment: O ne fall without injury in the past year, S creening: O ne fall without injury in the past year, P sindy of Care: N ot documented, no reason specified. * Follow Up: 6 Months * * The named appointment provid er may or may not be the originator of this progress note, and it is not deemed complete until electronically signed by the appointment provider. Sign off status: Pending * Provider: Mel Locke MD Date: 11/23/2024 Generated for Carl lawson/Jackson/Pola on: 11/25/2024 10:28 AM EDT
--- OUTSIDE RECORDS SUMMARY | 2024-11-25 10:29 | XMS_ITS | Encounter Summary ---
Author Organization [facility] Address [address] [place] [address] Phone Care Team Providers Care Mantel Craftsman Name Role Phone Maureen Mata MD Primary Care Provider Reason for Referral * MRI/CAT Scan - Closed Specialty Diagnoses / Procedures Referred By Contac t Referred To Contact Radiology Diagnoses Spinal stenosis, lumbosacral region Radiculopathy, lumbar region Procedures CT Lumbar Spine Jong Warren PA [address] [address] Phone: tel: fax: Referral ID Status Reason Start Date Expiration Date Visits Re quested Visits Authorized [id number] Closed 08/17/2024 08/17/2025 1 1 Encounter Details Date Type Department Care Team (Latest Contact Info) Description 08/17/2024 Transcribe Orders Virtual Department [address] [place] [address] Jong Warren PA [address] [address] Spinal stenosis, lumbosacral region (Primary Dx); Radiculopathy, [...] unspecified documented in this encounter Care Teams Mantel Craftsman Relationship Specialty Start Date End Date Maureen Mata MD PCP - General Internal Medicine 08/22/24 documented as of this encounter Additional Source Comments The information contained in this document represents components of the legal health record. It is not the complete legal health record.[facility]
--- OUTSIDE RECORDS SUMMARY | 2024-11-25 10:29 | XMS_ITS | Patient Health Record ---
Author Organization [facility] Address [address] [place] [address] Care Team Providers Care Manual Plate Filler Name Role Phone Stewart Medel Primary Care Provider Unavailab humera Leisa Garrett Unavailable [phone] Reason For Referral No Information Medications Medication [...] day Active glipiZIDE 2.5 mg Act chayo [place] 3 1000 MG 1 capsule Orally Once [...] Problem Acquired hammer toe of right foot (57400898305 52604) Other hammer toe(s) (acquired), right foot (M20.41) Active confirmed Problem Acquired hammer toe of left foot (91951861761 75305) Other hammer toe(s) (acquired), left foot (M20.42) Active confirmed Problem Other atherosclerosis of [place] arteries of extremities, 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) Active confirmed Plan Of Treatment No Information Insurance Providers Payer Name Payer Address Payer Phone Subscriber Number Group Number Insured Name Patient Relationship to Insured Coverage Start Date Coverage End Date Medicare National [employer] [address] [place] [address] [phone] [id number] Tam Dunaway Self - patient is the insured [facility] [address] [place] [address] [id number] Tam Dunaway Self - patient is the insured Medical (General) History Medical History History ICD Code Back,Hip,and Knee pain Gout High blood pressure Scarlet fever Measles Mumps Chicken pox Surgical History Surgery Date(Month/Year) triple bypass
--- OUTSIDE RECORDS SUMMARY | 2024-11-25 10:29 | XMS_ITS | Clinical Summary ---
Author Organization [facility] [address] [facility] Address [address] [place] [address] Phone Care Team Providers Care Ultrasound Sonographer Name Role Phone Unavailable Primary Care Provider [...] (one) time each day. 02/22/20 25 Active wu-oga-FS-vit I-vmjtbk-lymelzf (PreserVision AREDS 2 Plus MV) 200 mcg-15 mcg- 5 mg-1 mg capsule Take by mouth. Activ e B complex-vitamin C tablet Take 1 tablet by mouth 1 (one) time each day. 30 tablet 02/22/20 25 Active omega 2-xul-sac-fish oil (Fish OiL) 1,200 (144-216) mg capsule [...] age to complete this topic Insurance MEDICARE [facility]
[2024-11-25 11:32] LABS: Hematocrit 30.4 % (42.0-52.0); Hemoglobin 10.1 g/dl (14.0-18.0); Mean Corpuscular HGB Conc 33.2 g/dl (31.0-36.0); Mean Corpuscular Hemoglobin 33.7 pg (27.0-33.0); Mean Corpuscular Volume 101.3 fL (80.0-98.0); NRBC Abs Auto 0.000 X10*3/uL (0.0-0.012); NRBC Pct Auto 0.0 /100WBC (0.0-0.2); Platelet Count 201 X10*3/uL (160-400); Red Blood Count 3.00 X10*6/uL (4.60-5.80); White Blood Count 5.2 X10*3/uL (4.8-10.8)
[2024-11-25 11:57] LABS: Atypical Lymph Absolute Manual 0.1 x10*3/uL; Atypical Lymphs Percent Manual 1 % (0-6); Band Neutrophils Percent 3 % (3-5); Basophils Abs Manual 0.1 X10*3/uL (0.0-0.2); Basophils Percent Manual 1 % (0-2); Lymphocytes Absolute Manual 0.7 X10*3/uL (1.2-4.9); Lymphocytes Percent Manual 14 % (20-40); Monocytes Absolute Manual 0.1 X10*3/uL (0.1-1.2); Monocytes Percent Manual 2 % (2-11); Neutrophils Absolute Manual 4.3 X10*3/uL (2.0-8.3); Neutrophils Percent Manual 79 % (45-73)
[2024-11-25 11:58] LABS: Macrocytosis 1+ (5-14) /OIF; RBC Morphology NOTED
[2024-11-25 12:00] LABS: Acanthocytes 1+ (0-2) /OIF; Ovalocytes 1+ (5-14) /OIF
[2024-11-25 12:17] LABS: Ferritin 129 ng/mL (20-250); Iron 32 mcg/dL (45-160); Percent Iron Saturation 16 % (15-50); Total Iron Binding Capacity 201 mcg/dL (228-428); Unsaturated Iron Binding 169 ug/dL
[2024-11-25 12:35] LABS: Folate 14.4 ng/mL (> or = 4.0); Vitamin B12 574 pg/mL (200-900)
[2024-11-26 09:49] LABS: Immunoglobulin A 362 mg/dL (70-320)
[2024-11-30 07:22] LABS: Transglutaminase Ab IgG <1.0 U/mL
== END 2024-11-25 10:26 | disposition home or self-care (01) ==
LOC: HO.LAB 10:25
PROVIDERS: PCP Internal Medicine; Visit Provider Internal Medicine
DX: Z01.84 Encounter for antibody response examination (principal); D64.9 Anemia, unspecified
CPT/HCPCS: 36415; 82607; 82728; 82746; 82784; 83540; 85007; 85025; 85027; 86231; 86258; 86364

== ENCOUNTER 2024-12-09 14:18 | Outpatient (AMB) | payer MEDICARE, BC, SELFPAY ==
--- OUTSIDE RECORDS SUMMARY | 2024-11-23 11:55 | XMS_ITS ---
Author Organization [facility] Address [address] [place] [address] Care Team Providers Care Sales Negotiator Name Role Phone Maureen Donovan M.D. Primary Care Provider Unavail able Ashish Locke Unavailable [phone] Allergies No Known Allergies Results Component Value Reference Range Notes Ferritin (Not yet reviewed b y provider) Interpretation: Performing Lab:[facility], [address] [place] [phone] Notes/Report: Ferritin 129 20-250 ng/mL Vitamin B12 and Folate (Not yet reviewed by provider) Interpretation: Performing Lab:[facility], [address] [place] [phone] Notes/Report: Vitamin B12 574 200-900 pg/mL NORMAL 200-900 PG/ML INDETERMINATE 160-199 PG/ML DEFICIENT < 160 PG/ML Folate 14.4 > or = 4.0 ng/mL Reference Values: > or = 4.0 ng/mL < 4.0 ng/mL suggests folate deficiency Methotrexate, aminopterin and folinic acid (leucovorin) are chemotherapeutic agents whose molecular structures are similar to folate; therefore, the Senior Qa Analyst folate assay cannot be used for patients using these drugs. REASON FOR VISIT diarrhea, anemia Medications Medication SIG (Take, Route, Frequency, Duration) Notes Start Date End Date Status Metoprolol & Diet Manage Prod 25mg Active Norvasc 10mg Active glipiZIDE 2.5mg Acti ve [place] 3 Active Aspir-81 81mg Active Tamsulosin HCl [...] Status W/U Status Risk Notes Problem Anemia (558217141) Anemia (D64.9) Active confirmed Vital Signs Temperature 96.9 degrees Fahrenheit 11/24/19 25 Blood pressure systolic 001 mm Hg 11/24/19 25 Blood pressure diastolic 01 mm Hg 025 Heart Rate 72 /min 11/23/2024 Height 70.5 in 11/23/2024 Weight 196.9 lbs 11/23/2024 BMI 27.85 kg/m2 11/23/2024 Encounters Encounter Location Date Provider Diagnosis [facility] [address] [place] [address] 11/23/2024 Ashish Locke Anemia D64.9 Assessments Encounter [...] Provider Name:Ashish Locke , 05/23/2025 10:20:00 AM, [address] [place] [address], [address], [place], [address], Progress Notes * SOUTHOSWALDOTAM SrDOB:06/1939 (84 yo M)Acc No.[id number]:11/23/2024 Progress Notes Patient: TAM ARAUJO Sr Provider: Mel Locke MD :1940 A ge:84 Y S ex:Male Date:11/23/2024 Address:[address] [place], [place] [id number] Pcp:Maureen Donovan M.D. Subjective: * Chief Complaints: [...] diuretics. He is followed by cardiology at [facility]. He is status post a previous coronary artery bypass at [facility] as well. He also describes some [...] * Medical History: N IDDM, Hypertension, Denies [place],CVA,Lung disease,renal disease, CAD-3V CABG in 02/2011, Gout, [...] M arital status: . 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 D rug/Alcohol: A PAULO-C [...] 25mg , Taking Norvasc 10mg , Taking [place] 3 , Taking Vitamin D-3 1000iu , [...] 0 11/23/2024 Generated for Carl lawson/Jackson/Congitting on: 0 12/09/2024 02:43 PM EDT
[2024-12-09 14:25] VITALS: BP 118/56; PULSE 74; O2SAT 98; BMI 25.8
--- NOTE | 2024-12-09 14:25 | MHC.OFFVIS ---
Vital Signs 12/09/24 14:25 Height 5 ft 11 in Weight 185 lb 4 oz BMI 25.8 BP 118/56 L Blood Pressure Location Rt brachial Position Sitting Pulse 74 Pulse Source Pulse Oximeter Pulse Oximetry (%) 98 Oxygen Delivery Method Room Air Intake Visit Reasons: SOB/ Cough Allergies No Known Allergies Allergy (Verified 12/09/24 14:29) HPI HPI SOB/ Cough: Details: Tam is a pleasant 84 year old male, former 10 pack year smoker, quit 25 years ago with underlying ischemic cardiomyopathy s/p CABG, HTN, HLD, CKD, DMII, and Macrocytic anemia. He was referred by PCP for pulmonary evaluation. He reports worsening dyspnea on exertion over the last year with associated wheezing and productive cough with clear to white sputum. He denies h/o asthma/COPD. He denies prior use of supplemental oxygen other than hospitalizations. He denies h/o recurrent URI, however did have to be hospitalied due to COVID PNA in 2019. He was trialed on albuterol however did not find benefit from this. He has never been prescribed a daily inhaler. He denies h/o seasonal allergies, reflux or dysphagia. He denies any pertinent family history. He denies any occupational exposures. He was recently admitted to [facility] 11/28-11/29 secondary to CHF exacerbation presenting with progressive shortness of breath on exertion, orthopnea and lower extremity edema. Reports 4 lb weight gain in past week despite doubling his home lasix dose. ProBNP 13,078. CXR with minimal bilateral pleural effusions. Started on Bipap in ED for increased work of breathing, treated with nitro paste, 20 mg IV lasix. HFrEF (EF 35-40% 10/2023) with improved EF (45-50 % 05/2024) on GDMT, most recent echo 11/2024 revealed reduced ejection fraction to 20 to 25%, severe grade 3 diastolic dysfunction, as well as moderate aortic stenosis. He recently saw cardiology who placed an evaluation for possible ICD and has an upcoming appt in January through [facility]. Chest CT did reveal mild medistinal lymphadenopathy with recommendations for follow up. [facility] Surgical History Hx of CABG History of knee surgery Hx of tonsillectomy Social History (Updated 12/09/24 @ 14:29 by BENNETT Hill Housing: House Alcohol intake: never Patient Tobacco Use Status: Former Tobacco user Years Smoked: 40 e-Cigarette/Vaping Use: Never Used Second Hand Smoke Exposure: No service: Yes Current occupational status: retired Cognitive needs: No Hearing needs: Yes Vision needs: No Review of Systems Const Denies chills, Denies excessive sweating, Denies fever(s), Denies headache(s) and Denies night sweats Eyes Denies dry eyes, Denies irritation and Denies itchy eyes ENT Reports Normal hearing present, Denies headache(s), Denies nasal congestion, Denies nasal discharge, Denies post nasal drip and Denies sore throat Card Denies chest pain, Denies chest pain at rest, Denies chest pain with activity, Denies claudication, Denies leg edema, Denies orthopnea and Denies paroxysmal nocturnal dyspnea Resp Denies chest congestion, Denies excessive phlegm production, Denies pain on inspiration, Denies pain with cough and Denies stridor Musc Denies myalgias Neuro Reports Normal hearing present and Denies headache(s) Endo Denies excessive sweating Alf/Lymph Denies lymphadenopathy Aller/Immun Denies itchy eyes and Denies seasonal rhinorrhea Physical Exam Vital Signs: Last Vital Signs Pulse 74 12/09/24 14:25 BP 118/56 L 12/09/24 14:25 Pulse Ox 98 12/09/24 14:25 Oxygen Delivery Method Room Air 12/09/24 14:25 BMI result Body Mass Index 25.8 Const General: cooperative, healthy appearing, comfortable, no acute distress, well developed and alert Orientation/consciousness: patient oriented x3 Limitations: no limitations HEENT Head: Yes normal to inspection, Yes normocephalic and Yes atraumatic Ears: hearing grossly normal bilaterally and external ears normal Eyes General: appearance normal, both eyes and all related structures Eyelids: Yes eyelids normal Sclerae: sclerae normal EOM: EOMs intact bilaterally Neck Neck: Yes normal visual inspection and Yes no lymphadenopathy Lymphatic: no lymphadenopathy noted Chest Chest palpation & inspection: normal inspection of the chest Resp Effort & Inspection: normal respiratory effort, able to speak in complete sentences, no audible wheezes, no cough, no stridor, not tachypneic, no tripod positioning and no use of accessory muscles Auscultation: clear to auscultation bilaterally Cardio Jugular venous distension: no JVD Rate: regular rate Rhythm: regular rhythm Skin Other: warm, dry General skin exam: no rashes or lesions noted Neuro General: patient oriented x3 Cranial nerves: Yes Normal hearing present Cognition (Neuro): normal cognition Gait exam (Neuro): Normal gait present Extrem General: Yes normal to inspection, Yes capillary refill normal, Yes no clubbing, cyanosis or edema and Yes no pedal edema Psych Appearance: grossly normal and well kempt Speech and movement: Normal speech and movement present and Clear speech present Affect: normal affect Attitude: cooperative Thought process: Normal thought process present Thought content: Normal thought content present Insight: Good insight present (Psych) Judgement: Good judgement present (Psych) Results Reviewed Results Reviewed: RESULT: CT Chest W/O Contrast CT Chest W/O Contrast INDICATION: Reason: Emphysema; Clinical Question(s): Emphysema TECHNIQUE: Helical CT scan of the chest without IV contrast, formatted in 3 planes. Weight-based protocol was performed using automatic exposure control. CTDIvol Body: 10.50 mGy, DLP Body: 396 mGy*cm. COMPARISON: 01/17/2022 FINDINGS: Scientific Linguist view findings, lines and tubes: None. Trachea and airways: There is some aerosolized secretions in the lower trachea and at the rupinder. Otherwise unremarkable. Lungs and pleura: Mild interlobular septal thickening in both lung bases, more pronounced on the left than the right. Mild bibasilar atelectasis and small bilateral pleural effusions. 9 x 5 mm nodule in the periphery of the right lower lobe along the major interlobar fissure in series 601 image 59, series 603 image 34, and series 604 image 25, likely representing a fissural lymph node. Lungs are otherwise clear. Specifically, no emphysematous changes. No pneumothorax. Mediastinum and joleen: No mass or hematoma. Multiple prominent mediastinal lymph nodes with the largest measuring approximately 1.0 cm. No hilar lymphadenopathy. No esophageal abnormality. Normal thyroid. Heart: Cardiomegaly. Evidence of CABG procedure. No pericardial effusion. Severe coronary artery calcification. Aorta: No aortic aneurysm. Heavy aortic wall calcification. Pulmonary arteries: Dilated central pulmonary arteries. Chest wall soft tissues: Mild bilateral gynecomastia. Diaphragm: Intact. Upper abdomen: Cholelithiasis. Bones: No acute abnormality. Remote median sternotomy. Degenerative changes in the spine. Electrical stimulator device in the spine with superior margin of the lead at the T9 level. IMPRESSION: Mild interstitial pulmonary edema. Small bilateral pleural effusions. No evidence of emphysema. Cardiomegaly. Remote CABG procedure. Mediastinal lymphadenopathy similar to the study of 01/17/2022. Dilated central pulmonary arteries suggestive of pulmonary arterial hypertension. 9 x 5 mm lymph node in the lower portion of the right major interlobar fissure. Cholelithiasis. WSN: [id number] Ordering Physician: Juan Forde Reason For Exam Emphysema Signature Line Dictated By: Tam Ferris MD Dictated Date/Time: 11/29/24 10:16 a Reviewed By: Tam eFrris MD Signed By: Tam Ferris MD Signed Date/Time: 11/29/24 10:16 am Transcribed By: SG Assessment & Plan Assessment & Plan (1) Shortness of breath: Code(s): R06.02 - Shortness of breath Category: Medical (2) Cough: Code(s): R05.9 - Cough, unspecified Category: Medical (3) CHF (congestive heart failure): Code(s): I50.9 - Heart failure, unspecified Category: Medical Qualifiers: Heart failure type: combined systolic and diastolic Heart failure chronicity: chronic Qualified Code(s): I50.42 - Chronic combined systolic (congestive) and diastolic (congestive) heart failure (4) Mediastinal lymphadenopathy: Code(s): R59.0 - Localized enlarged lymph nodes Category: Medical Plan Tam presents for pulmonary evaluation for ongoing dyspnea and productive cough with clear to white sputum. He denies prior h/o asthma/COPD however does have a remote smoking history. Will send for PFT to further evaluate although likely significant cardiac contribution, following closely with [facility] cardiology. He is requesting the PFT order to be sent to [facility]. Discussed importance of medication compliance through cardiology as well as daily weights, fluid intake and salt intake. Prior CT 11/2024 revealed mild medistinal lymphadenopathy with recommendations for follow up. Will order chest CT in 6 months to assess stability. He is again requesting this to be sent to [facility]. All questions were answered an patient is in agreement of plan. Will follow up to review PFT results or sooner if needed. Orders: Orders PFT pulmonary function test Today R05.9 - Cough, unspecified, R06.02 - Shortness of breath CT chest wo IV con 5 Months R59.0 - Localized enlarged lymph nodes Coding Level of Care Code New Pt Level 4 (29247) Diagnoses Shortness of breath R06.02 Cough R05.9 Chronic combined systolic and diastolic congestive heart failure I50.42 Heart failure type: combined systolic and diastolic Heart failure chronicity: chronic Mediastinal lymphadenopathy R59.0
--- OUTSIDE RECORDS SUMMARY | 2024-12-09 14:46 | XMS_ITS | Patient Health Record ---
Author Organization [facility] Address [address] [place] [address] Care Team Providers Care Pulmonology Technician Name Role Phone Maureen Donovan M.D. Primary Care Provider Andre carter Ashish Locke Unavailable [phone] Allergies No Known Allergies Results Component Value Reference Range Notes Ferritin (Not yet reviewed b y provider) Interpretation: Performing Lab:[facility], [address] [place] [phone] Notes/Report: Ferritin 129 20-250 ng/mL Vitamin B12 and Folate (Not yet reviewed by provider) Interpretation: Performing Lab:[facility], [address] [place] [phone] Notes/Report: Vitamin B12 574 200-900 pg/mL NORMAL 200-900 PG/ML INDETERMINATE 160-199 PG/ML DEFICIENT < 160 PG/ML Folate 14.4 > or = 4.0 ng/mL Reference Values: > or = 4.0 ng/mL < 4.0 ng/mL suggests folate deficiency Methotrexate, aminopterin and folinic acid (leucovorin) are chemotherapeutic agents whose molecular structures are similar to folate; therefore, the [employer] folate assay cannot be used for patients using these drugs. Complete Blood Count Auto Di ff (Not yet reviewed by provider) Interpretation: Performing Lab:[address] [phone] Notes/Report: White Blood Count 5.2 4.8-10.8 X10*3/uL Red Blood Count 3.00 4.60-5.80 X10*6/uL Hemoglobin 10.1 14.0-18.0 g/dl Hematocrit 30.4 42.0-52.0 % Mean Corpuscular Volume 101.3 80.0-98.0 fL Mean Corpuscular Hemoglobin 33.7 27.0-33.0 pg Mean Corpuscular HGB Conc 33.2 31.0-36.0 g/dl Red Cell Distribution Width 14.9 11.0-16.0 % Platelet Count 201 160-400 X10*3/uL Mean Platelet Volume 9.2 9.4-12.4 fL Neutrophils Percent Auto 75.1 45-73 % Imm Gran Pct Auto 5.2 0.0-0.4 % Lymphocytes Percent Auto 14.6 20-40 % Monocytes Percent Auto 3.7 2-11 % Eosinophils Percent Auto 0.6 0-4 % Basophils Percent Auto 0.8 0-2 % NRBC Pct Auto 0.0 0.0-0.2 /100WBC Neutrophils Absolute Auto 3.9 2.0-8.3 x10*3/u L Imm Gran Abs Auto 0.27 0.00-0.03 X10*3/uL Lymphocytes Absolute Auto 0.8 1.2-4.9 X10*3/u L Monocytes Absolute Auto 0.2 0.1-1.2 X10*3/uL Eosinophils Absolute Auto 0.0 0.0-0.4 X10*3/u L Basophils Absolute Auto 0.0 0.0-0.2 X10*3/uL NRBC Abs Auto 0.000 0.0-0.012 X10*3/uL Complete Blood Count Man Dif (Not yet reviewed by provider) Interpretation: Performing Lab:[facility], [address] [place] [phone] Notes/Report: White Blood Count 5.2 4.8-10.8 X10*3/uL Red Blood Count 3.00 4.60-5.80 X10*6/uL Hemoglobin 10.1 14.0-18.0 g/dl Hematocrit 30.4 42.0-52.0 % Mean Corpuscular Volume 101.3 80.0-98.0 fL Mean Corpuscular Hemoglobin 33.7 27.0-33.0 pg Mean Corpuscular HGB Conc 33.2 31.0-36.0 g/dl Red Cell Distribution Width 14.9 11.0-16.0 % Platelet Count 201 160-400 X10*3/uL Mean Platelet Volume 9.2 9.4-12.4 fL NRBC Pct Auto 0.0 0.0-0.2 /100WBC NRBC Abs Auto 0.000 0.0-0.012 X10*3/uL Neutrophils Percent Manual 79 45-73 % Band Neutrophils Percent 3 3-5 % Lymphocytes Percent Manual 14 20-40 % Atypical Lymphs Percent Manual 1 0-6 % Monocytes Percent Manual 2 2-11 % Basophils Percent Manual 1 0-2 % Neutrophils Absolute Manual 4.3 2.0-8.3 X10*3 /uL Lymphocytes Absolute Manual 0.7 1.2-4.9 X10*3 /uL Atypical Lymph Absolute Manual 0.1 Monocytes Absolute Manual 0.1 0.1-1.2 X10*3/u L Basophils Abs Manual 0.1 0.0-0.2 X10*3/uL Platelet Estimate NORMAL NORMAL Platelet Morphology Comment NORMAL RBC Morphology NOTED Macrocytosis 1+ (5-14) Ovalocytes 1+ (5-14) Acanthocytes 1+ (0-2) IRON PROFILE (Not yet review ed by provider) Interpretation: Performing Lab:[facility], [address] [place] [phone] Notes/Report: Iron 32 45-160 mcg/dL Total Iron Binding Capacity 201 228-428 mcg/d L Percent Iron Saturation 16 15-50 % Unsaturated Iron Binding 169 Immunoglobulin A (Not yet re viewed by provider) Interpretation: Performing Lab:[facility], [address] [place] [phone] Notes/Report: Immunoglobulin A 362 70-320 mg/dL THIS TEST WAS PERFORMED AT: [facility] [address] [place] [phone] MARIAN GUTIERREZ MD Transglutaminase Ab IgG (Not yet reviewed by provider) Interpretation: Performing Lab:[facility], [address] [place] [phone] Notes/Report: Transglutaminase Ab IgG <1.0 Value Interpretation ----- <15.0 Antibody not detected > or = 15.0 Antibody detected THIS TEST WAS PERFORMED AT: [facility] [address] [place] [phone] MARIAN GUTIERREZ MD Transglutaminase IgA (Not ye t reviewed by provider) Interpretation: Performing Lab:[facility], [address] [place] [phone] Notes/Report: Transglutaminase IgA <1.0 Value Interpretation ----- <15.0 Antibody not detected > or = 15.0 Antibody detected THIS TEST WAS PERFORMED AT: [facility] [address] [place] [phone] MARIAN GUTIERREZ MD Gliadin Ab Panel (Not yet re viewed by provider) Interpretation: Performing Lab:[facility], [address] [place] [phone] Notes/Report: Gliadin Deamidated IgA Ab 6.6 Value Interpretation ----- <15.0 Antibody not detected > or = 15.0 Antibody detected Gliadin Deamidated IgG Ab <1.0 Value Interpretation ----- <15.0 Antibody not detected > or = 15.0 Antibody detected THIS TEST WAS PERFORMED AT: [facility] [address] [place] [phone] MARIAN GUTIERREZ MD Endomysial IgA rflx Titer (N ot yet reviewed by provider) Interpretation: Performing Lab:[facility], [address] [place] [phone] Notes/Report: Endomysial IgA Antibody Negative Negative THIS TEST WAS PERFORMED AT: [facility]/[address] NICOL GRAJEDA MD,PHD Endomysial Titer TNP Reason For Referral No Information Medications Medication SIG (Take, Route, Frequency, Duration) Notes Start Date End Date Status amLODIPine Besy-Benazepril HCl 5-10 MG as directed Orally Active Metoprolol & Diet Manage Prod 25mg Active Vitamin D3 25 MCG (1000 UT) 1 tablet Ora lly Once a day Active Norvasc 10mg Active glipiZIDE 2.5mg Acti ve Tamsulosin HCl 0.4 MG 1 capsule Orally O nce a day Active Omeprazole 40 MG 1 capsule 1/2 to 1 h our before morning meal Orally Once a day Active PreserVision AREDS 2 - as directed Orally Active [place] 3 Active Magnesium Oxide 400 MG 1 tablet with shila d Orally Once a day Active Vitamin D-3 1000iu A ctive Furosemide 20 MG 1 tablet Orally Once a day Active Allopurinol 300mg 1 tablet po once daily Active Eplerenone 25 MG 1 tablet Orally Once a day Active Aspir-81 81mg Active hydrALAZINE HCl 100 MG 1 tablet with shila d Orally three times a day Active Rosuvastatin Calcium 10 MG 1 tablet Oral ly Once a day Active Isosorbide Mononitrate Active Entresto 97-103 MG 1 tablet Orally Twic e a day Active Farxiga 10 MG 1 tablet Orally Once a day Active Social History Tobacco Use: Social History Observation Description Date Details (start date - stop date) Never Smoker NA - NA Tobacco Control (Standard) Question Answer Notes Tobacco use: Nonsmoker AUDIT-C (Standard) Question Answer Notes Did you have a drink containing alcohol in the p ast year? No Points 0 Interpretation Negative Section Notes: Nonsmoker 8-9 yrs ago; no si g. alcohol Nonsmoker 8-9 yrs ago; no si g. alcohol Problems Problem Type SNOMED Code ICD Code Onset Dates Problem Status W/U Status Risk Notes Problem Already on aspirin (829469576) Long-term (current) use of aspirin (V58.66) Active confirmed Problem Colon cancer screening (758884830) Colon cancer screening (V76.51) Active confirmed Problem Anemia (656123890) Anemia (D64.9) Active confirmed Vital Signs Heart Rate 72 /min 11/23/2024 Temperature 96.9 degrees Fahrenheit 11/23/2024 Blood pressure diastolic 01 mm Hg 11/23/2024 Height 70.5 in 11/23/2024 Blood pressure systolic 001 mm Hg 11/23/2024 Weight 196.9 lbs 11/23/2024 BMI 27.85 kg/m2 11/23/2024 Encounters Encounter Location Date Provider [facility] [address] [place] [address] 11/23/2024 Ashish Locek Anemia D64.9 Assessments Encounter Date Diagnosis (ICD Code) Assessment Notes Treatment Notes Treatment Clinical Notes Section Notes 11/23/2024 Anemia (ICD-10 - D64.9) Based on the lab results we can decide if you need any GI procedures Cut down the caffeine to help decrease the loose stools Plan Of Treatment Pending Test Test Name Order Date IRON + IBC (FE) 11/23/2024 CBC w DIFF 11/23/2024 CELIAC PANEL #10 11/23/2024 Complete Blood Count Auto Diff Complete Blood Count Man Dif 11/25/2024 IRON PROFILE 11/25/2024 Ferritin 11/23/2024 Vitamin B12 and Folate 11/23/2024 Immunoglobulin A 11/25/2024 Transglutaminase Ab IgG 11/25/2024 Transglutaminase IgA 11/25/2024 Gliadin Ab Panel 11/25/2024 Endomysial IgA rflx Titer 11/25/2024 Future Test Test Name Order Date COLONOSCOPY 06/15/2012 Next Appt Details Provider Name:Ashish Locke , 05/23/2025 10:20:00 AM, [address] [place] [address], [address], [place], [address], Insurance Providers Payer Name Payer Address Payer Phone Subscriber Number Group Number Insured Name Patient Relationship to Insured Coverage Start Date Coverage End Date MEDICARE OF [place] [address] [place] [address] [phone] [id number] BRAD ROTHMAN Self - patient is the insured [address] 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
--- OUTSIDE RECORDS SUMMARY | 2024-12-09 14:46 | XMS_ITS | Encounter Summary ---
Author Organization [facility] Address [address] [place] [phone] Phone Care Team Providers Care Administrative Support Manager Name Role Phone Maureen Mata MD Primary Care Provider Reason for Referral * MRI/CAT Scan - Closed Specialty Diagnoses / Procedures Referred By Contac t Referred To Contact Radiology Diagnoses Spinal stenosis, lumbosacral region Radiculopathy, lumbar region Procedures CT Lumbar Spine [place] [address] [address] Phone: tel: fax: Referral ID Status Reason Start Date Expiration Date Visits Re quested Visits Authorized [id number] Closed 08/17/2024 08/17/2025 1 1 Encounter Details Date Type Department Care Team (Latest Contact Info) Description 08/17/2024 Transcribe Orders Virtual Department [address] [place] [address] [place] [address] [address] Spinal stenosis, lumbosacral region (Primary Dx); Radiculopathy, [...] unspecified documented in this encounter Care Teams Administrative Support Manager Relationship Specialty Start Date End Date Maureen Mata MD PCP - General Internal Medicine 08/22/24 documented as of this encounter Additional Source Comments The information contained in this document represents components of the legal health record. It is not the complete legal health record.[facility]
--- OUTSIDE RECORDS SUMMARY | 2024-12-09 14:46 | XMS_ITS | Clinical Summary ---
Author Organization [facility] [address] [facility] Address [address] [place] [address] Phone Care Team Providers Care Burnisher Name Role Phone Unavailable Primary Care Provider [...] (one) time each day. 02/22/20 25 Active zb-rbj-GU-vit P-hxskep-varswve (PreserVision AREDS 2 Plus MV) 200 mcg-15 mcg- 5 mg-1 mg capsule Take by mouth. Activ e B complex-vitamin C tablet Take 1 tablet by mouth 1 (one) time each day. 30 tablet 02/22/20 25 Active omega 3-cbl-lch-fish oil (Fish OiL) 1,200 (144-216) mg capsule [...] (2 of 2 - PPSV23) 05/02/2020 05/02/2019 Cholesterol Screening (Lipid Panel) 01/30/2024 Falls Risk Assessment 01/30/2024 Medicare Annual Wellness Visit 01/30/2024 Social Influencers of Health Screening 01/30/2024 Diabetes: Annual Urine Albumin-Creatinine Ratio (uACR) 02/22/2024 Diabetes: Blood Sugar Contro l Test (HGBA1C) 02/22/2024 Hypertension/CHF/CAD Annual BMP Blood Test 02/22/2024 Depression Screening 04/06/2024 COVID-19 Vaccine (1 - 2023-2 5 season) 2024 Influenza Vaccine (#1) 2024 DTaP,Tdap,and Td Vaccines [...] age to complete this topic Insurance MEDICARE [facility]
--- OUTSIDE RECORDS SUMMARY | 2024-12-09 14:46 | XMS_ITS | Patient Health Record ---
Author Organization [facility] Address [address] [place] [address] Care Team Providers Care Junior Copywriter Name Role Phone Stewart Medel Primary Care Provider Unavailab humera Leisa Garrett Unavailable [phone] Reason For Referral No Information Medications Medication [...] day Active glipiZIDE 2.5 mg Act chayo [place] 3 1000 MG 1 capsule Orally Once [...] Problem Acquired hammer toe of right foot ([id number] 28453) Other hammer toe(s) (acquired), right foot (M20.41) Active confirmed Problem Acquired hammer toe of left foot (70917871416 26078) Other hammer toe(s) (acquired), left foot (M20.42) Active confirmed Problem Other atherosclerosis of [place] arteries of extremities, 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) Active confirmed Plan Of Treatment No Information Insurance Providers Payer Name Payer Address Payer Phone Subscriber Number Group Number Insured Name Patient Relationship to Insured Coverage Start Date Coverage End Date Medicare [employer] [address] [place] [address] [phone] [id number] Tam Dunaway Self - patient is the insured [facility] [address] [place] [address] [id number] Tam Dunaway Self - patient is the insured Medical (General) History Medical History History ICD Code Back,Hip,and Knee pain Gout High blood pressure Scarlet fever Measles Mumps Chicken pox Surgical History Surgery Date(Month/Year) triple bypass
--- OUTSIDE RECORDS SUMMARY | 2024-12-09 14:46 | XMS_ITS | Encounter Summary ---
Author Organization [facility] Address [address] [place] [address] Phone Care Team Providers Care Adult Secondary Education Instructor Name Role Phone Maureen Mata MD Primary Care Provider Encounter Details Date Type Department Care Team (Late st Contact Info) Description 08/17/2024 Procedure Pass [facility], Ct Scan - [address] [address] Social History Tobacco Use Types Packs/Day Years Used Date Smoking Tobacco: Never Assessed Sex and Gender Information Value Date Recorded Sex Assigned at Not on file Legal Sex Male 2:19 PM EDT Gender Identity Not on file Sexual Orientation Not on file documented as of this encounter Plan of Treatment Not on file documented as of this encounter Visit Diagnoses Not on filedocumented in this encounter Care Teams Adult Secondary Education Instructor Relationship Specialty Start Date End Date Maureen Mata MD PCP - General Internal Medicine 08/22/24 documented as of this encounter Additional Source Comments The information contained in this document represents components of the legal health record. It is not the complete legal health record.[facility]
--- OUTSIDE RECORDS SUMMARY | 2024-12-09 14:46 | XMS_ITS | Clinical Summary ---
Author Organization [facility] Address [address] [place] [address] Phone Care Team Providers Care Technical Services Consultant Name Role Phone Maureen Mata MD Primary Care Provider Social History Tobacco Use Types Packs/Day Years Used Date Smoking Tobacco: Never Assessed Education Answer Date Recorded Are you interested in more education? Not on pk e 08/22/2024 Are you concerned about learning? Not on file 08/22/2024 No 08/22/2024 No 08/22/2024 Digital Access Answer Date Recorded No 08/22/2024 No 08/22/2024 Reliable internet access at home? Not on file 08/22/2024 Device with a working camera? Not on file Sex and Gender Information Value Date Recorded Sex Assigned at Not on file Legal Sex Male 2:19 PM EDT Gender Identity Not on file Sexual Orientation Not on file Plan of Treatment Not on file Medical Devices [place] [address] [place] PART A [place] [id number] [facility] POS MEDICARE PART A & B [facility] POS MED[facility]ARE PART A & B [facility] HMO POS MEDICARE PART A & B [facility] POS MEDICARE PART A & B [facility] HMO POS MEDICARE PART A & B [facility] HMO POS Care Teams Technical Services Consultant Relationship Specialty Start Date End Date Maureen Mata MD PCP - General Internal Medicine 08/22/24 Additional Source Comments The information contained in this document represents components of the legal health record. It is not the complete legal health record.[facility]
== END 2024-12-09 15:40 | disposition home or self-care (01) ==
LOC: HO.HPSW 14:19
PROVIDERS: PCP Internal Medicine; Referring Provider Internal Medicine; Visit Provider Nurse Practitioner Family
DX: R06.02 Shortness of breath (principal); R05.9 Cough, unspecified; I50.42 Chronic combined systolic (congestive) and diastolic (congestive) heart failure; R59.0 Localized enlarged lymph nodes
CPT/HCPCS: 99204

== ENCOUNTER → 2024-12-09 14:18 | Outpatient (BNVA) | payer MEDICARE, BC, SELFPAY | PROVIDERS: PCP Internal Medicine; Referring Provider Internal Medicine; Visit Provider Nurse Practitioner Family | DX: I50.42 Chronic combined systolic (congestive) and diastolic (congestive) heart failure (principal); R06.02 Shortness of breath; R05.9 Cough, unspecified; R59.0 Localized enlarged lymph nodes | CPT/HCPCS: 99202 ==

== ENCOUNTER 2024-12-29 14:42 | Outpatient (REF) | payer MEDICARE, BC, SELFPAY ==
--- OUTSIDE RECORDS SUMMARY | 2024-11-23 11:55 | XMS_ITS ---
Author Organization [facility] Address [address] [place] [address] Care Team Providers Care Medical Van Driver Name Role Phone Maureen Donovan M.D. Primary Care Provider Unavail able Ashish Locke Unavailable [phone] Allergies No Known Allergies Results Component Value Reference Range Notes Ferritin Reviewed date:12/17/2024 11:06:28 PM Interpretation: Performing Lab:[facility], [address] [place] [phone] Notes/Report: Ferritin 129 20-250 ng/mL Vitamin B12 and Folate Reviewed date:12/17/2024 11:06:37 PM Interpretation: Performing Lab:[facility], [address] [place] [phone] Notes/Report: Vitamin B12 574 200-900 pg/mL NORMAL 200-900 PG/ML INDETERMINATE 160-199 PG/ML DEFICIENT < 160 PG/ML Folate 14.4 > or = 4.0 ng/mL Reference Values: > or = 4.0 ng/mL < 4.0 ng/mL suggests folate deficiency Methotrexate, aminopterin and folinic acid (leucovorin) are chemotherapeutic agents whose molecular structures are similar to folate; therefore, the Fabric Worker folate assay cannot be used for patients using these drugs. REASON FOR VISIT diarrhea, anemia Medications Medication SIG (Take, Route, Frequency, Duration) Notes Start Date End Date Status Metoprolol & Diet Manage Prod 25mg Active Norvasc 10mg Active glipiZIDE 2.5mg Acti ve [place] 3 Active Aspir-81 81mg Active Tamsulosin HCl [...] Status W/U Status Risk Notes Problem Anemia (671915541) Anemia (D64.9) Active confirmed Vital Signs Temperature 96.9 degrees Fahrenheit 11/24/19 25 Blood pressure systolic 001 mm Hg 11/24/19 25 Blood pressure diastolic 01 mm Hg 025 Heart Rate 72 /min 11/23/2024 Height 70.5 in 11/23/2024 Weight 196.9 lbs 11/23/2024 BMI 27.85 kg/m2 11/23/2024 Encounters Encounter Location Date Provider Diagnosis [facility] [address] [place] [address] 11/23/2024 Ashish Locke Anemia D64.9 Assessments Encounter [...] 10:20:00 AM, [address], [address], [place], [address], Progress Notes * SOUTHOSWALDOTAM SrDOB:06/1939 (84 yo M)Acc No.[id number]:11/23/2024 Progress Notes Patient: TAM ARAUJO Sr Provider: Mel Locke MD :1940 A ge:84 Y S ex:Male Date:11/23/2024 Address:[address] [place], [place] [address] Pcp:Maureen Donovan M.D. Subjective: * Chief Complaints: [...] diuretics. He is followed by cardiology at [facility]. He is status post a previous coronary artery bypass at [facility] as well. He also describes some [...] No chest pain/orthopnea.. G astrointestinal: Comments S [facility] for details. G enitourinary: Patient denies No dysuria/hematuria.. M usculoskeletal: Patient denies No specific arthralgias/myalgias.. ? S kin: Patient denies N o rash/pruritus.. N eurologic: Patient denies No headaches/seizures.. P sychiatric: Patient denies N egative.. * Medical History: N IDDM, Hypertension, Denies CT,CVA,Lung disease,renal disease, CAD-3V CABG in 02/2011, Gout, [...] iscellaneous: M arital status: . 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 D rug/Alcohol: A PAULO-C (Standard) [...] 25mg , Taking Norvasc 10mg , Taking [place] 3 , Taking Vitamin D-3 1000iu , [...] 0 11/23/2024 Generated for Carl lawson/Jackson/Congitting on: 12/29/2024 06:59 PM EDT History and Physical Notes * [...]
[2024-12-29 18:11] LABS: Appearance Urine Clear; Glucose Urine UA Negative (Negative); PH 6.0 (5.0-9.0); Specific Gravity - Urine 1.020 (1.005-1.025); UMIC TRIGGER UA YES
[2024-12-29 18:53] LABS: Alanine Aminotransferase 25 U/L (0-40); Albumin Level 3.1 g/dL (3.5-5.0); Alkaline Phosphatase 93 U/L (39-117); Anion Gap 10 (12-20); Aspartate Amino Transferase 20 U/L (5-37); Blood Urea Nitrogen 44 mg/dL (9-16); Calcium 8.0 mg/dL (8.4-10.2); Carbon Dioxide 20 mmol/L (22-29); Chloride 113 mmol/L (96-108); Estimated Glomerular Filt Rate 40; Magnesium 1.5 mg/dL (1.6-2.6); Potassium 4.6 mmol/L (3.3-5.1); Sodium 138 mmol/L (135-145); Total Protein 6.0 g/dL (6.5-8.0)
--- OUTSIDE RECORDS SUMMARY | 2024-12-29 19:00 | XMS_ITS | Clinical Summary ---
Author Organization [facility] Address [address] [place] [address] Phone Care Team Providers Care Identity Management Consultant Name Role Phone Maureen Mata MD [...] Devices [place] [address] MED[place] PART A [place] [id number] [facility] MEDICARE PART A & B [facility] POS MEDICARE PART A & B [facility] MEDICARE PART A & B [facility] HMO POS MEDICARE PART A & B [facility] HMO POS Care Teams Identity Management Consultant Relationship Specialty Start Date End Date Maureen Mata MD PCP - General Internal Medicine 08/22/24 Additional Source Comments The information contained in this document represents components of the legal health record. It is not the complete legal health record.[facility]
--- OUTSIDE RECORDS SUMMARY | 2024-12-29 19:00 | XMS_ITS | Patient Health Record ---
Author Organization [facility] Jun Shipley Address [address] [place] [address] Care Team Providers Care Finishing Area Supervisor Name Role Phone Stewart Medel Primary Care Provider Unavailab humera Leisa Garrett Unavailable [phone] Reason For Referral No Information Medications Medication [...] day Active glipiZIDE 2.5 mg Act chayo [place] 3 1000 MG 1 capsule Orally Once [...] Problem Acquired hammer toe of right foot ([id number]) Other hammer toe(s) (acquired), right foot (M20.41) Active confirmed Problem Acquired hammer toe of left foot ([id number] 94429) Other hammer toe(s) (acquired), left foot (M20.42) Active confirmed Problem Other atherosclerosis of [place] arteries of extremities, 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) Active confirmed Plan Of Treatment No Information Insurance Providers Payer Name Payer Address Payer Phone Subscriber Number Group Number Insured Name Patient Relationship to Insured Coverage Start Date Coverage End Date Medicare National Govt Svcs Inc [address] [place] [address] [phone] [id number] Tam Dunaway Self - patient is the insured [facility] [address] [place] [address] [id number] Tam Dunaway Self - patient is the insured Medical (General) History Medical History History ICD Code Back,Hip,and Knee pain Gout High blood pressure Scarlet fever Measles Mumps Chicken pox Surgical History Surgery Date(Month/Year) triple bypass
--- OUTSIDE RECORDS SUMMARY | 2024-12-29 19:00 | XMS_ITS | Encounter Summary ---
Author Organization [facility] Address [address] [facility] [address] [place] [address] Phone Care Team Providers Care Teachers' Aide Name Role Phone Maureen Mata MD Primary Care Provider Reason for Referral * MRI/CAT Scan - Closed Specialty Diagnoses / Procedures Referred By Contac t Referred To Contact Radiology Diagnoses Spinal stenosis, lumbosacral region Radiculopathy, lumbar region Procedures CT Lumbar Spine [place] [address] [address] Phone: tel: fax: Referral ID Status Reason Start Date Expiration Date Visits Re quested Visits Authorized [id number] Closed 08/17/2024 08/17/2025 1 1 Encounter Details Date Type Department Care Team (Latest Contact Info) Description 08/17/2024 Transcribe Orders Virtual Department [address] [place] [address] Jong Warren [place] [address] [address] Spinal stenosis, lumbosacral region (Primary Dx); Radiculopathy, [...] unspecified documented in this encounter Care Teams Teachers' Aide Relationship Specialty Start Date End Date Maureen Mata MD PCP - General Internal Medicine 08/22/24 documented as of this encounter Additional Source Comments The information contained in this document represents components of the legal health record. It is not the complete legal health record.[facility]
--- OUTSIDE RECORDS SUMMARY | 2024-12-29 19:00 | XMS_ITS | Encounter Summary ---
Author Organization [facility] Address [address] [place] [address] Phone Care Team Providers Care Tool Or Die Drawing Checker Name Role Phone Maureen Mata MD Primary Care Provider Encounter Details Date Type Department Care Team (Late st Contact Info) Description 08/17/2024 Procedure Pass [facility], Ct Scan - [address] [address] Social History Tobacco Use Types Packs/Day Years [...] on filedocumented in this encounter Care Teams Tool Or Die Drawing Checker Relationship Specialty Start Date End Date Maureen Mata MD PCP - General Internal Medicine 08/22/24 documented as of this encounter Additional Source Comments The information contained in this document represents components of the legal health record. It is not the complete legal health record.[facility]
--- OUTSIDE RECORDS SUMMARY | 2024-12-29 19:00 | XMS_ITS | Patient Health Record ---
Author Organization [facility] Address [address] [place] [address] Care Team Providers Care District Administrative Assistant Name Role Phone Maureen Donovan M.D. Primary Care Provider Andre carter Ashish Locke Unavailable [phone] Allergies No Known Allergies Results Component Value Reference Range Notes Ferritin Reviewed date:12/17/2024 11:06:28 PM Interpretation: Performing Lab:[facility], [address] [place] [phone] Notes/Report: Ferritin 129 20-250 ng/mL Vitamin B12 and Folate Reviewed date:12/17/2024 11:06:37 PM Interpretation: Performing Lab:[facility], [address] [place] [phone] Notes/Report: Vitamin B12 574 200-900 pg/mL NORMAL 200-900 PG/ML INDETERMINATE 160-199 PG/ML DEFICIENT < 160 PG/ML Folate 14.4 > or = 4.0 ng/mL Reference Values: > or = 4.0 ng/mL < 4.0 ng/mL suggests folate deficiency Methotrexate, aminopterin and folinic acid (leucovorin) are chemotherapeutic agents whose molecular structures are similar to folate; therefore, the Brilliandeer Lopper folate assay cannot be used for patients using these drugs. Complete Blood Count Auto Di ff Reviewed date:12/17/2024 10:24:50 PM Interpretation: Performing Lab:[facility], [address] [place] [phone] Notes/Report: White Blood Count 5.2 4.8-10.8 X10*3/uL [...] 0.0-0.012 X10*3/uL Complete Blood Count Man Dif Reviewed date:12/17/2024 10:25:03 PM Interpretation: Performing Lab:[facility], [address] [place] [phone] Notes/Report: White Blood Count 5.2 4.8-10.8 X10*3/uL [...] 1+ (5-14) Acanthocytes 1+ (0-2) IRON PROFILE Reviewed date:12/17/2024 10:25:29 PM Interpretation: Performing Lab:[address] [address] Notes/Report: Iron 32 45-160 mcg/dL Total Iron Binding Capacity 201 228-428 mcg/d L Percent Iron Saturation 16 15-50 % Unsaturated Iron Binding 169 Immunoglobulin A Reviewed date:12/17/2024 10:25:40 PM Interpretation: Performing Lab:[address] [address] Notes/Report: Immunoglobulin A 362 70-320 mg/dL THIS TEST WAS PERFORMED AT: [facility] [address] [address] MARIAN GUTIERREZ MD Transglutaminase Ab IgG Reviewed date:12/17/2024 11:05:46 PM Interpretation: Performing Lab:[address] [address] Notes/Report: Transglutaminase Ab IgG <1.0 Value Interpretation ----- <15.0 Antibody not detected > or = 15.0 Antibody detected THIS TEST WAS PERFORMED AT: [facility] [address] [place] [phone] MARIAN GUTIERREZ MD Transglutaminase IgA Reviewed date:12/17/2024 11:05:55 PM Interpretation: Performing Lab:[facility], [address] [place] [phone] Notes/Report: Transglutaminase IgA <1.0 Value Interpretation ----- <15.0 Antibody not detected > or = 15.0 Antibody detected THIS TEST WAS PERFORMED AT: [facility] [address] [place] [phone] MARIAN GUTIERREZ MD Gliadin Ab Panel Reviewed date:12/17/2024 11:06:08 PM Interpretation: Performing Lab:[facility], [address] [place] [phone] Notes/Report: Gliadin Deamidated IgA Ab 6.6 Value Interpretation ----- <15.0 Antibody not detected > or = 15.0 Antibody detected Gliadin Deamidated IgG Ab <1.0 Value Interpretation ----- <15.0 Antibody not detected > or = 15.0 Antibody detected THIS TEST WAS PERFORMED AT: [facility] [address] [place] [phone] MARIAN GUTIERREZ MD Endomysial IgA rflx Titer Reviewed date:12/17/2024 11:06:16 PM Interpretation: Performing Lab:[address] [address] Notes/Report: Endomysial IgA Antibody Negative Negative THIS TEST WAS PERFORMED AT: [facility] [address] [place] [phone] NICOL GRAJEDA MD,PHD Endomysial Titer TNP Reason [...] AREDS 2 - as directed Orally Active [place] 3 Active Magnesium Oxide 400 MG 1 [...] Status Risk Notes Problem Already on aspirin ([id number]) Long-term (current) use of aspirin (V58.66) Active confirmed Problem Colon cancer screening (875720899) Colon cancer screening (V76.51) Active confirmed Problem Anemia (024809130) Anemia (D64.9) Active confirmed Vital Signs Heart Rate 72 /min 11/23/2024 Temperature 96.9 degrees Fahrenheit 11/23/2024 Blood pressure diastolic 01 mm Hg 11/23/2024 Height 70.5 in 11/23/2024 Blood pressure systolic 001 mm Hg 11/23/2024 Weight 196.9 lbs 11/23/2024 BMI 27.85 kg/m2 11/23/2024 Encounters Encounter Location Date Provider Diagnosis [facility] [address] [place] [address] 11/23/2024 Ashish Locke Anemia D64.9 Assessments Encounter [...] w DIFF 11/23/2024 CELIAC PANEL #10 11/23/2024 Future Test Test Name Order Date COLONOSCOPY 06/15/2012 Next Appt Details Provider Name:Ashish Locke , 05/23/2025 10:20:00 AM, [address], [address], [place], [address], Insurance Providers Payer Name Payer Address Payer Phone Subscriber Number Group Number Insured Name Patient Relationship to Insured Coverage Start Date Coverage End Date MEDICARE OF [place] [address] [place] [address] [id number] BRAD ROTHMAN Self - patient is the insured [address] [facility] [address] [place], [place] [id number] BRAD ROTHMAN Self - patient is the insured Medical (General) History Medical History History ICD Code NIDDM Hypertension Denies NV,CVA,Lung disease,renal disease CAD-3V CABG in 02/2011 Gout Skin cancer COVID pneumonia CHF Negative screening colonoscopy in 2012 Anemia Surgical History Surgery Date(Month/Year) Stimulator for pain relief in LE's 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
[2024-12-29 19:31] LABS: Microalbum/Creatinine Ratio Ur 296.0 ug/mg cr (<30)
[2025-01-01 16:35] LABS: PSA, Ultra Sensitive 1.13 ng/mL
== END 2024-12-29 14:43 | disposition home or self-care (01) ==
LOC: HO.WFDLDS 14:42
PROVIDERS: Referring Provider Internal Medicine Critical Care Medicine; Visit Provider Internal Medicine
DX: Z12.5 Encounter for screening for malignant neoplasm of prostate (principal); E83.42 Hypomagnesemia; N18.9 Chronic kidney disease, unspecified; I50.42 Chronic combined systolic (congestive) and diastolic (congestive) heart failure
CPT/HCPCS: 36415; 80053; 81001; 82043; 82570; 83735; 84153

== ENCOUNTER 2025-01-02 13:11 | Outpatient (AMB) | payer MEDICARE, BC, SELFPAY ==
--- OUTSIDE RECORDS SUMMARY | 2024-11-23 11:55 | XMS_ITS ---
Author Organization [facility] Address [address] [place] [address] Care Team Providers Care Reception Name Role Phone Maureen Donovan M.D. Primary Care Provider Unavail able Ashish Locke Unavailable [phone] Allergies No Known Allergies Results Component Value Reference Range Notes Ferritin Reviewed date:12/17/2024 11:06:28 PM Interpretation: Performing Lab:[facility], [address] [place] [phone] Notes/Report: Ferritin 129 20-250 ng/mL Vitamin B12 and Folate Reviewed date:12/17/2024 11:06:37 PM Interpretation: Performing Lab:[facility], [address] [place] [phone] Notes/Report: Vitamin B12 574 200-900 pg/mL NORMAL 200-900 PG/ML INDETERMINATE 160-199 PG/ML DEFICIENT < 160 PG/ML Folate 14.4 > or = 4.0 ng/mL Reference Values: > or = 4.0 ng/mL < 4.0 ng/mL suggests folate deficiency Methotrexate, aminopterin and folinic acid (leucovorin) are chemotherapeutic agents whose molecular structures are similar to folate; therefore, the Refrigerator Mover folate assay cannot be used for patients using these drugs. REASON FOR VISIT diarrhea, anemia Medications Medication SIG (Take, Route, Frequency, Duration) Notes Start Date End Date Status Metoprolol & Diet Manage Prod 25mg Active Norvasc 10mg Active glipiZIDE 2.5mg Acti ve [place] 3 Active Aspir-81 81mg Active Tamsulosin HCl [...] Status W/U Status Risk Notes Problem Anemia (551086263) Anemia (D64.9) Active confirmed Vital Signs Temperature 96.9 degrees Fahrenheit 11/24/19 25 Blood pressure systolic 001 mm Hg 11/24/19 25 Blood pressure diastolic 01 mm Hg 025 Heart Rate 72 /min 11/23/2024 Height 70.5 in 11/23/2024 Weight 196.9 lbs 11/23/2024 BMI 27.85 kg/m2 11/23/2024 Encounters Encounter Location Date Provider Diagnosis [facility] [address] [place] [address] 11/23/2024 Ashish Locke Anemia D64.9 Assessments Encounter [...] 10:20:00 AM, [address], [address], [place], [address], Progress Notes * SOUTHOSWALDOTAM SrDOB:06/1939 (84 yo M)Acc No.[id number]:11/23/2024 Progress Notes Patient: TAM ARAUJO Sr Provider: Mel Locke MD :1940 A ge:84 Y S ex:Male Date:11/23/2024 Address:[address] [place], [place] [id number] Pcp:Maureen Donovan M.D. Subjective: * Chief Complaints: [...] diuretics. He is followed by cardiology at [facility]. He is status post a previous coronary artery bypass at [facility] as well. He also describes some chronic [...] No chest pain/orthopnea.. G astrointestinal: Comments S [facility] for details. G enitourinary: Patient denies No dysuria/hematuria.. M usculoskeletal: Patient denies No specific arthralgias/myalgias.. ? S kin: Patient denies N o rash/pruritus.. N eurologic: Patient denies No headaches/seizures.. P sychiatric: Patient denies N egative.. * Medical History: N IDDM, Hypertension, Denies [place],CVA,Lung disease,renal disease, CAD-3V CABG in 02/2011, Gout, Skin cancer, COVID pneumonia, CHF, Negative screening colonoscopy in 2012, Anemia. 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 * Hospitalization/Major Diagno stic Procedure: D [...] iscellaneous: M arital status: . 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 D rug/Alcohol: A PAULO-C [...] 25mg , Taking Norvasc 10mg , Taking [place] 3 , Taking Vitamin D-3 1000iu , Medication List reviewed and reconciled with the patient * Allergies: N .K.D.A. Objective: * Vitals: W t:196.9lbs, Ht: 70.5 in, BMI:27.85Index, BP:001/01mm Hg, HR:72/min, Temp:96.9, Wt-k.31. * Examination: G eneral Examination: GENERAL APPEARANCE: [...] 0 11/23/2024 Generated for Carl lawson/Jackson/Congitting on: 01/02/2025 02:32 PM EDT History and Physical Notes * Examination Category [...]
--- NOTE | 2025-01-02 13:16 | A.OFFPC_ITS ---
Vital Signs 01/02/25 13:24 Height 5 ft 11 in Weight 190 lb 2 oz BMI 26.5 BP 110/48 L Blood Pressure Location Lt brachial Position Sitting Respiration 16 Pulse 92 Pulse Source Pulse Oximeter Temp 98.6 F Temp Source Oral Pulse Oximetry (%) 96 Oxygen Delivery Method Room Air Intake Visit Reasons: Discharge Follow-Up /[facility] /dc 12/24 Intake Note: Hospital follow up Plant Physiology Teacher Required: No Allergies No Known Allergies Allergy (Verified 01/02/25 13:16) Tobacco use date assessed: 09/20/24 Dental Screening Dental Screen Date: 09/20/24 HPI HPI Comments History of Present Illness Details The patient is an 84 year old male with a past medical history of CHF, ICM, h/o CABG 2009, s/p repair, macular degeneration, hearing loss and back pain presenting for follow up He was hospitalized from 12/21-12/24/24. Prior to this hospitalized Nov 28-Nov 29 for CHF exacerbation,newly decreased EF and Lasix increased but outpatient bmp with JONNY low K and Na so decreased to 40mg. Presented to ER 12/21 with increased shortness of breath, orthopnea from cardiology office-BP was soft and patient appeared hypervolemic. EKG afib slow ventricular response rate, incomplete LBBB and ST and T wave changes. K 5.6 Na 125 Cr 2.52. Received lokelma. Cardiorenal syndrome. He denies increased dyspnea since discharge. reports increased dyspnea. He has gained between 6 and 8 pounds. They are following 1.5L fluid restriction Patient has been experiencing sob regularly for years, since he had pneumonia from Covid. Patient was told by his pest technician that he has a lung disease. Patient is asymptomatic sitting and not moving but once he moves around he becomes short of breath. He also experiences shortness of breath while lying down, and has to sleep upright, sometimes in his armchair. CV: on entresto, crestor, lasix-currently 20/40 alternating days, ASA, omega. Off imdur, hydralazine, farxiga. Follows with cardiology Jigar Gonzalez. Sees every six months. Upcoming visit next week CKD: sees nephrology, Dr Batista Urology: On flomax MSK Chronic low back pain. Trouble sleeping. Had spinal stimulator.Gets cortisone injections Follows with Dr Velázquez. Gout-on allopurinol. No recent flare Wet macular degeneration. Follows with optho Derm- ear surgery-sushma [place]. GI: ongoing issues with loose stools. some interval improvement. Ongoing. Horrible taste in his mouth. H pylori and cdiff negative. ROS see HPI PHYSICAL EXAM: GENERAL: Alert and oriented x 3. NAD EYES: EOMI. Anicteric. HENT: Moist mucous membranes. +thrush. No scleral icterus. No cervical lymph adenopathy. LUNGS: Clear to auscultation bilaterally. Poor air entry CARDIOVASCULAR: Regular rate and rhythm. Loud systolic murmur. No JVD. ABDOMEN: Soft, non-tender +bs EXTREMITIES: 1+ edema b/l Non-tender. SKIN: No rashes or lesions. Warm. NEUROLOGIC: No focal neurological deficits. CN II-XII grossly intact PSYCHIATRIC: Cooperative. Appropriate mood and affect [facility] Surgical History Hx of CABG History of knee surgery Hx of tonsillectomy Social History Housing: House Alcohol intake: never Patient Tobacco Use Status: Former Tobacco user Years Smoked: 40 e-Cigarette/Vaping Use: Never Used Second Hand Smoke Exposure: No service: Yes Current occupational status: retired Cognitive needs: No Hearing needs: Yes Vision needs: No Questionnaire Thrive Questionnaire Date Thrive assessed: 09/20/24 I am a: Patient What is your living situation today?: I have a steady place to live Within the past 12 months, did the food you bought not last and you didn't have the money to get more?: Never true Within the past 12 months, did you worry whether your food would run out before you got money to buy more?: Never true Do you have trouble paying for medicines?: No Do you have trouble getting transportation to medical appointments?: No Do you have trouble paying your heating and electricity bill?: No Do you have trouble taking care of your child, family member or friend?: No Do you have trouble with day-to-day activities such as bathing, preparing meals, shopping, managing finances, etc.?: No Are you currently unemployed and looking for a job?: I choose not to answer this question Are you interested in more education?: No Please select the resources that you would like help with: None Currently or been in a relationship where the following occur: I choose not to answer THRIVE Score: 0 LUCAS-7 AMB Questionnaire LUCAS-7 Date LUCAS - 7 assessed: 09/20/24 Source: Developed by Drs. Ashish North, Zunilda Fournier, Ignacio Dimas and colleagues, with an educational june from [employer]. Physical exam (Primary Care) Vital Signs: Last Vital Signs Temp 98.6 F 01/02/25 13:24 Pulse 92 01/02/25 13:24 Resp 16 01/02/25 13:24 BP 110/48 L 01/02/25 13:24 Pulse Ox 96 01/02/25 13:24 Oxygen Delivery Method Room Air 01/02/25 13:24 BMI result Body Mass Index 26.5 Tobacco/Smoking Status: Tobacco use Status Tobacco use date assessed 09/20/24 01/02/25 13:18 Patient Tobacco Use Status Former Tobacco user 01/02/25 13:18 e-Cigarette/Vaping Use Never Used 01/02/25 13:18 Thrive Assessment: Date of Thrive Assessment Date Thrive assessed 09/20/24 01/02/25 13:18 Currently or been in a relationship where the following occur: I choose not to answer Coding Level of Care Code Est Pt Level 4 (40891) Complex EM visit Add On G2211 Diagnoses Chronic combined systolic and diastolic congestive heart failure I50.42 Heart failure type: combined systolic and diastolic Heart failure chronicity: chronic Coronary artery disease involving coronary bypass graft of [place] heart, unspecified whether angina present I25.810 Coronary Disease-Associated Artery/Lesion type: bypass graft [place] vs. transplanted heart: [place] heart Associated angina: unspecified whether angina present Stage 4 chronic kidney disease N18.4 Chronic kidney disease stage: stage 4 (GFR 15-29) Shortness of breath R06.02 Assessment & Plan Assessment & Plan (1) CHF (congestive heart failure): Code(s): I50.9 - Heart failure, unspecified Category: Medical Qualifiers: Heart failure type: combined systolic and diastolic Heart failure chronicity: chronic Qualified Code(s): I50.42 - Chronic combined systolic (congestive) and diastolic (congestive) heart failure (2) CAD (coronary artery disease): Code(s): I25.10 - Atherosclerotic heart disease of [place] coronary artery without angina pectoris Category: Medical Qualifiers: Coronary Disease-Associated Artery/Lesion type: bypass graft [place] vs. transplanted heart: [place] heart Associated angina: unspecified whether angina present Qualified Code(s): I25.810 - Atherosclerosis of coronary artery bypass graft(s) without angina pectoris (3) Chronic kidney disease: Code(s): N18.9 - Chronic kidney disease, unspecified Category: Medical Qualifiers: Chronic kidney disease stage: stage 4 (GFR 15-29) Qualified Code(s): N18.4 - Chronic kidney disease, stage 4 (severe) (4) Shortness of breath: Code(s): R06.02 - Shortness of breath Category: Medical Plan Hospital discharge follow up Course reviewed Hypervolemic-increase lasix to 40mg every day. BMP in one week. Follow up with cardiology, nephrology Albuterol refilled Orders: Orders Basic Metabolic Panel 5 Days I50.42 - Chronic combined systolic (congestive) and diastolic (congestive) heart failure Medications: New albuterol sulfate 90 mcg/actuation 2 puffs inhalation QID PRN 8.5 grams 3RF wheezing Changed From furosemide Take one tab oral daily alternating with two tab oral daily To furosemide 40 mg (2 x 20 mg) PO DAILY 180 tabs 1RF 90 days
[2025-01-02 13:24] VITALS: BP 110/48; PULSE 92; RESP 16; TEMP 37; O2SAT 96; BMI 26.5
--- OUTSIDE RECORDS SUMMARY | 2025-01-02 14:33 | XMS_ITS | Patient Health Record ---
Author Organization [facility] Jun Shipley Address [address] [place] [address] Care Team Providers Care Deckhand Crab Boat Name Role Phone [place] Medel Primary Care Provider Unavailab humera Leisa Garrett Unavailable [phone] Reason For Referral No Information Medications Medication [...] day Active glipiZIDE 2.5 mg Act chayo [place] 3 1000 MG 1 capsule Orally Once [...] Problem Acquired hammer toe of right foot ([id number] 12120) Other hammer toe(s) (acquired), right foot (M20.41) Active confirmed Problem Acquired hammer toe of left foot (90939839199 38458) Other hammer toe(s) (acquired), left foot (M20.42) Active confirmed Problem Other atherosclerosis of [place] arteries of extremities, 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) Active confirmed Plan Of Treatment No Information Insurance Providers Payer Name Payer Address Payer Phone Subscriber Number Group Number Insured Name Patient Relationship to Insured Coverage Start Date Coverage End Date Medicare National Govt Svcs Inc [address] [place] [address] [phone] [id number] Tam Dunaway Self - patient is the insured [facility] [address] [place] [address] [id number] Tam Dunaway Self - patient is the insured Medical (General) History Medical History History ICD Code Back,Hip,and Knee pain Gout High blood pressure Scarlet fever Measles Mumps Chicken pox Surgical History Surgery Date(Month/Year) triple bypass
--- OUTSIDE RECORDS SUMMARY | 2025-01-02 14:33 | XMS_ITS | Patient Health Record ---
Author Organization [facility] Address [address] [place] [address] Care Team Providers Care Racing Driver Name Role Phone Maureen Donovan M.D. Primary Care Provider Andre carter Ashish Locke Unavailable [phone] Allergies No Known Allergies Results Component Value Reference Range Notes Ferritin Reviewed date:12/17/2024 11:06:28 PM Interpretation: Performing Lab:[facility], [address] [place] [phone] Notes/Report: Ferritin 129 20-250 ng/mL Vitamin B12 and Folate Reviewed date:12/17/2024 11:06:37 PM Interpretation: Performing Lab:[facility], [address] [place] [phone] Notes/Report: Vitamin B12 574 200-900 pg/mL NORMAL 200-900 PG/ML INDETERMINATE 160-199 PG/ML DEFICIENT < 160 PG/ML Folate 14.4 > or = 4.0 ng/mL Reference Values: > or = 4.0 ng/mL < 4.0 ng/mL suggests folate deficiency Methotrexate, aminopterin and folinic acid (leucovorin) are chemotherapeutic agents whose molecular structures are similar to folate; therefore, the Reduction Furnace Operator Helper folate assay cannot be used for patients using these drugs. Complete Blood Count Auto Di ff Reviewed date:12/17/2024 10:24:50 PM Interpretation: Performing Lab:[facility], [address] [place] [phone] Notes/Report: White Blood Count 5.2 4.8-10.8 X10*3/uL [...] Dif Reviewed date:12/17/2024 10:25:03 PM Interpretation: Performing Lab:[facility], [address] [place] [phone] Notes/Report: White Blood Count 5.2 4.8-10.8 X10*3/uL [...] PROFILE Reviewed date:12/17/2024 10:25:29 PM Interpretation: Performing Lab:[address] [address] Notes/Report: Iron 32 45-160 mcg/dL Total Iron Binding Capacity 201 228-428 mcg/d L Percent Iron Saturation 16 15-50 % Unsaturated Iron Binding 169 Immunoglobulin A Reviewed date:12/17/2024 10:25:40 PM Interpretation: Performing Lab:[address] [address] Notes/Report: Immunoglobulin A 362 70-320 mg/dL THIS TEST WAS PERFORMED AT: [facility] [address] [address] MARIAN GUTIERREZ MD Transglutaminase Ab IgG Reviewed date:12/17/2024 11:05:46 PM Interpretation: Performing Lab:[address] [address] Notes/Report: Transglutaminase Ab IgG <1.0 Value Interpretation ----- <15.0 Antibody not detected > or = 15.0 Antibody detected THIS TEST WAS PERFORMED AT: [facility] [address] [place] [phone] MARIAN GUTIERREZ MD Transglutaminase IgA Reviewed date:12/17/2024 11:05:55 PM Interpretation: Performing Lab:[facility], [address] [place] [address] Notes/Report: Transglutaminase IgA <1.0 Value Interpretation ----- <15.0 Antibody not detected > or = 15.0 Antibody detected THIS TEST WAS PERFORMED AT: [facility] [address] [place] [phone] MARIAN GUTIERREZ MD Gliadin Ab Panel Reviewed date:12/17/2024 11:06:08 PM Interpretation: Performing Lab:[facility], [address] [place] [phone] Notes/Report: Gliadin Deamidated IgA Ab 6.6 Value Interpretation ----- <15.0 Antibody not detected > or = 15.0 Antibody detected Gliadin Deamidated IgG Ab <1.0 Value Interpretation ----- <15.0 Antibody not detected > or = 15.0 Antibody detected THIS TEST WAS PERFORMED AT: [facility] [address] [place] [phone] MARIAN GUTIERREZ MD Endomysial IgA rflx Titer Reviewed date:12/17/2024 11:06:16 PM Interpretation: Performing Lab:[address] [address] Notes/Report: Endomysial IgA Antibody Negative Negative THIS TEST WAS PERFORMED AT: [facility] [id number] [place] [phone] NICOL GRAJEDA MD,PHD Endomysial Titer TNP Reason [...] AREDS 2 - as directed Orally Active [place] 3 Active Magnesium Oxide 400 MG 1 [...] Status Risk Notes Problem Already on aspirin (362656489) Long-term (current) use of aspirin (V58.66) Active confirmed Problem Colon cancer screening (276124912) Colon cancer screening (V76.51) Active confirmed Problem Anemia (633575980) Anemia (D64.9) Active confirmed Vital Signs Heart Rate 72 /min 11/23/2024 Temperature 96.9 degrees Fahrenheit 11/23/2024 Blood pressure diastolic 01 mm Hg 11/23/2024 Height 70.5 in 11/23/2024 Blood pressure systolic 001 mm Hg 11/23/2024 Weight 196.9 lbs 11/23/2024 BMI 27.85 kg/m2 11/23/2024 Encounters Encounter Location Date Provider Diagnosis [facility] [address] [place] [address] 11/23/2024 Ashish Locke Anemia D64.9 Assessments Encounter [...] 10:20:00 AM, [address], [address], [place], [address], Insurance Providers Payer Name Payer Address Payer Phone Subscriber Number Group Number Insured Name Patient Relationship to Insured Coverage Start Date Coverage End Date MEDICARE OF [place] [address] [place] [address] [id number] BRAD ROTHMAN Self - patient is the insured 5 [facility] [address] [place], [place] [id number] BRAD ROTHMAN Self - patient is the insured Medical (General) History Medical History History ICD Code NIDDM Hypertension Denies [place],CVA,Lung disease,renal disease CAD-3V CABG in 02/2011 Gout Skin cancer COVID pneumonia CHF Negative screening colonoscopy in 2012 Anemia Surgical History Surgery Date(Month/Year) Stimulator for pain relief in LE's 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
== END 2025-01-02 14:00 | disposition home or self-care (01) ==
LOC: HO.HMCFM 13:12
PROVIDERS: PCP Internal Medicine; Visit Provider Internal Medicine
DX: I50.42 Chronic combined systolic (congestive) and diastolic (congestive) heart failure (principal); I25.810 Atherosclerosis of coronary artery bypass graft(s) without angina pectoris; N18.4 Chronic kidney disease, stage 4 (severe); R06.02 Shortness of breath

== ENCOUNTER → 2025-01-02 13:11 | Outpatient (BNVA) | payer MEDICARE, BC, SELFPAY | PROVIDERS: PCP Internal Medicine; Visit Provider Internal Medicine | DX: I50.42 Chronic combined systolic (congestive) and diastolic (congestive) heart failure (principal); I25.810 Atherosclerosis of coronary artery bypass graft(s) without angina pectoris; N18.4 Chronic kidney disease, stage 4 (severe); R06.02 Shortness of breath; M10.9 Gout, unspecified; G89.29 Other chronic pain; M54.50 Low back pain, unspecified; Z79.899 Other long term (current) drug therapy | CPT/HCPCS: 99212 ==

== ENCOUNTER 2025-01-09 13:03 | Outpatient (REF) | payer MEDICARE, BC, SELFPAY ==
--- OUTSIDE RECORDS SUMMARY | 2024-11-23 11:55 | XMS_ITS ---
Author Organization [facility] Address [address] [place] [address] Care Team Providers Care Drawing Hand Name Role Phone Maureen Donovan M.D. Primary Care Provider Unavail able Ashish Locke Unavailable [phone] Allergies No Known Allergies Results Component Value Reference Range Notes Ferritin Reviewed date:12/17/2024 11:06:28 PM Interpretation: Performing Lab:[facility], [address] [place] [phone] Notes/Report: Ferritin 129 20-250 ng/mL Vitamin B12 and Folate Reviewed date:12/17/2024 11:06:37 PM Interpretation: Performing Lab:[facility], [address] [place] [phone] Notes/Report: Vitamin B12 574 200-900 pg/mL NORMAL 200-900 PG/ML INDETERMINATE 160-199 PG/ML DEFICIENT < 160 PG/ML Folate 14.4 > or = 4.0 ng/mL Reference Values: > or = 4.0 ng/mL < 4.0 ng/mL suggests folate deficiency Methotrexate, aminopterin and folinic acid (leucovorin) are chemotherapeutic agents whose molecular structures are similar to folate; therefore, the Director Museum [employer] Zoo folate assay cannot be used for patients using these drugs. REASON FOR VISIT diarrhea, anemia Medications Medication SIG (Take, Route, Frequency, Duration) Notes Start Date End Date Status Metoprolol & Diet Manage Prod 25mg Active Norvasc 10mg Active glipiZIDE 2.5mg Acti ve [place] 3 Active Aspir-81 81mg Active Tamsulosin HCl [...] Status W/U Status Risk Notes Problem Anemia (349779998) Anemia (D64.9) Active confirmed Vital Signs Temperature 96.9 degrees Fahrenheit 11/24/19 25 Blood pressure systolic 001 mm Hg 11/24/19 25 Blood pressure diastolic 01 mm Hg 025 Heart Rate 72 /min 11/23/2024 Height 70.5 in 11/23/2024 Weight 196.9 lbs 11/23/2024 BMI 27.85 kg/m2 11/23/2024 Encounters Encounter Location Date Provider Diagnosis [facility] [address] [place] [address] 11/23/2024 Ashish Locke Anemia D64.9 Assessments Encounter [...] 10:20:00 AM, [address], [address], [place], [address], Progress Notes * LORNABRAD SrDOB:06/1939 (85 yo M)Acc No.[id number]:11/23/2024 Progress Notes Patient: BRAD ARAUJO Sr Provider: Mel Locke MD :1940 A ge:84 Y S ex:Male Date:11/23/2024 Address:[address] [place], [place] [address] Pcp:Maureen Donovan M.D. Subjective: * Chief Complaints: * 1 . Diarrhea, anemia. * HPI: i ncontinence: I saw Brad [...] diuretics. He is followed by cardiology at [facility]. He is status post a previous coronary artery bypass at [facility] as well. He also describes some [...] No chest pain/orthopnea.. G astrointestinal: Comments S [facility] for details. G enitourinary: Patient denies No dysuria/hematuria.. M usculoskeletal: Patient denies No specific arthralgias/myalgias.. ? S kin: Patient denies N o rash/pruritus.. N eurologic: Patient denies No headaches/seizures.. P sychiatric: Patient denies N egative.. * Medical History: N IDDM, Hypertension, Denies [place],CVA,Lung disease,renal disease, CAD-3V CABG in 02/2011, Gout, [...] iscellaneous: M arital status: . 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 D rug/Alcohol: A PAULO-C [...] 25mg , Taking Norvasc 10mg , Taking [place] 3 , Taking Vitamin D-3 1000iu , [...] MD Date: 0 11/23/2024 Generated for Carl lawson/Jackson/Pola on: 1 03:24 PM EDT History and Physical Notes * [...]
[2025-01-09 15:00] LABS: Anion Gap 11 (12-20); Blood Urea Nitrogen 44 mg/dL (9-16); Calcium 8.2 mg/dL (8.4-10.2); Carbon Dioxide 25 mmol/L (22-29); Chloride 109 mmol/L (96-108); Estimated Glomerular Filt Rate 40; Potassium 4.7 mmol/L (3.3-5.1); Sodium 140 mmol/L (135-145)
--- OUTSIDE RECORDS SUMMARY | 2025-01-09 15:25 | XMS_ITS | Clinical Summary ---
Author Organization [facility] Address [address] [place] [address] Phone Care Team Providers Care Glassware Maker Demonstrator Name Role Phone Maureen Mata MD Primary Care Provider [phone] Social History Tobacco Use Types Packs/Day Years [...] Devices [place] [id number] MED[place]ARE PART A [place] [phone] [facility] MED[facility] & [facility] MED[facility]ARE PART A & B [facility] POS MEDICARE PART A & B [facility] MEDICARE PART A & B [facility] HMO POS MEDICARE PART A & B [facility] HMO POS Care Teams Glassware Maker Demonstrator Relationship Specialty Start Date End Date Maureen Mata MD PCP - General Internal Medicine 08/22/24 Additional Source Comments The information contained in this document represents components of the legal health record. It is not the complete legal health record.[facility]
--- OUTSIDE RECORDS SUMMARY | 2025-01-09 15:25 | XMS_ITS | Encounter Summary ---
Author Organization [facility] Address [address] [facility] [address] [place] [address] Phone Care Team Providers Care Environment Artist Name Role Phone Maureen Mata MD Primary Care Provider Reason for Referral * MRI/CAT Scan - Closed Specialty Diagnoses / Procedures Referred By Contac t Referred To Contact Radiology Diagnoses Spinal stenosis, lumbosacral region Radiculopathy, lumbar region Procedures CT Lumbar Spine Jong Warren [place] [address] [address] Phone: tel: fax: Referral ID Status Reason Start Date Expiration Date Visits Re quested Visits Authorized [id number] Closed 08/17/2024 08/17/2025 1 1 Encounter Details Date Type Department Care Team (Latest Contact Info) Description 08/17/2024 Transcribe Orders Virtual Department [address] [place] [address] Jong [place] [address] [address] Spinal stenosis, lumbosacral region (Primary Dx); Radiculopathy, [...] unspecified documented in this encounter Care Teams Environment Artist Relationship Specialty Start Date End Date Maureen Mata MD PCP - General Internal Medicine 08/22/24 documented as of this encounter Additional Source Comments The information contained in this document represents components of the legal health record. It is not the complete legal health record.[facility]
--- OUTSIDE RECORDS SUMMARY | 2025-01-09 15:25 | XMS_ITS | Encounter Summary ---
Author Organization [facility] Address [address] [place] [address] Phone Care Team Providers Care Soft Boarder Name Role Phone Maureen Mata MD Primary Care Provider [phone] Encounter Details Date Type Department Care Team (Late st Contact Info) Description 08/17/2024 Procedure Pass [facility], Ct Scan - [address] [address] Social History Tobacco Use Types Packs/Day Years [...] on filedocumented in this encounter Care Teams Soft Boarder Relationship Specialty Start Date End Date Maureen Mata MD PCP - General Internal Medicine 08/22/24 documented as of this encounter Additional Source Comments The information contained in this document represents components of the legal health record. It is not the complete legal health record.[facility]
--- OUTSIDE RECORDS SUMMARY | 2025-01-09 15:25 | XMS_ITS | Patient Health Record ---
Author Organization [facility] Address [address] [place] [address] Care Team Providers Care Train Braker Name Role Phone Stewrat Medel Primary Care Provider Unavailab humera Leisa Garrett Unavailable [phone] Reason For Referral No Information Medications Medication [...] day Active glipiZIDE 2.5 mg Act chay[place] 3 1000 MG 1 capsule Orally Once [...] Problem Acquired hammer toe of right foot (08006610191 91031) Other hammer toe(s) (acquired), right foot (M20.41) Active confirmed Problem Acquired hammer toe of left foot (50224362330 04900) Other hammer toe(s) (acquired), left foot (M20.42) Active confirmed Problem Other atherosclerosis of [place] arteries of extremities, 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) Active confirmed Plan Of Treatment No Information Insurance Providers Payer Name Payer Address Payer Phone Subscriber Number Group Number Insured Name Patient Relationship to Insured Coverage Start Date Coverage End Date Medicare National [employer] [address] [place] [address] [phone] [id number] Tam Dunaway Self - patient is the insured [facility] [address] [place] [address] [id number] Tam Dunaway Self - patient is the insured Medical (General) History Medical History History ICD Code Back,Hip,and Knee pain Gout High blood pressure Scarlet fever Measles Mumps Chicken pox Surgical History Surgery Date(Month/Year) triple bypass
--- OUTSIDE RECORDS SUMMARY | 2025-01-09 15:25 | XMS_ITS | Patient Health Record ---
Author Organization [facility] Address [address] [place] [address] Care Team Providers Care Distribution Field Technician Name Role Phone Maureen Donovan M.D. Primary Care Provider Andre carter Ashish Locke Unavailable [phone] Allergies No Known Allergies Results Component Value Reference Range Notes Ferritin Reviewed date:12/17/2024 11:06:28 PM Interpretation: Performing Lab:[facility], [address] [place] [phone] Notes/Report: Ferritin 129 20-250 ng/mL Vitamin B12 and Folate Reviewed date:12/17/2024 11:06:37 PM Interpretation: Performing Lab:[facility], [address] [place] [phone] Notes/Report: Vitamin B12 574 200-900 pg/mL NORMAL 200-900 PG/ML INDETERMINATE 160-199 PG/ML DEFICIENT < 160 PG/ML Folate 14.4 > or = 4.0 ng/mL Reference Values: > or = 4.0 ng/mL < 4.0 ng/mL suggests folate deficiency Methotrexate, aminopterin and folinic acid (leucovorin) are chemotherapeutic agents whose molecular structures are similar to folate; therefore, the Assortment Planner folate assay cannot be used for patients using these drugs. Complete Blood Count Auto Di ff Reviewed date:12/17/2024 10:24:50 PM Interpretation: Performing Lab:[facility], [address] [place] [phone] Notes/Report: White Blood Count 5.2 4.8-10.8 X10*3/uL [...] Dif Reviewed date:12/17/2024 10:25:03 PM Interpretation: Performing Lab:[facility], [address] [place] [phone] Notes/Report: White Blood Count 5.2 4.8-10.8 X10*3/uL [...] PROFILE Reviewed date:12/17/2024 10:25:29 PM Interpretation: Performing Lab:[address] [address] Notes/Report: Iron 32 45-160 mcg/dL Total Iron Binding Capacity 201 228-428 mcg/d L Percent Iron Saturation 16 15-50 % Unsaturated Iron Binding 169 Immunoglobulin A Reviewed date:12/17/2024 10:25:40 PM Interpretation: Performing Lab:[address] [address] Notes/Report: Immunoglobulin A 362 70-320 mg/dL THIS TEST WAS PERFORMED AT: [facility] [employer] [facility] [address] [address] MARIAN GUTIERREZ MD Transglutaminase Ab IgG Reviewed date:12/17/2024 11:05:46 PM Interpretation: Performing Lab:[address] [address] Notes/Report: Transglutaminase Ab IgG <1.0 Value Interpretation ----- <15.0 Antibody not detected > or = 15.0 Antibody detected THIS TEST WAS PERFORMED AT: [facility] [address] [place] [phone] MARIAN GUTIERREZ MD Transglutaminase IgA Reviewed date:12/17/2024 11:05:55 PM Interpretation: Performing Lab:[facility], [address] [place] [phone] Notes/Report: Transglutaminase IgA <1.0 Value Interpretation ----- <15.0 Antibody not detected > or = 15.0 Antibody detected THIS TEST WAS PERFORMED AT: [facility] [address] [place] [phone] MARIAN GUTIERREZ MD Gliadin Ab Panel Reviewed date:12/17/2024 11:06:08 PM Interpretation: Performing Lab:[facility], [address] [place] [phone] Notes/Report: Gliadin Deamidated IgA Ab 6.6 Value Interpretation ----- <15.0 Antibody not detected > or = 15.0 Antibody detected Gliadin Deamidated IgG Ab <1.0 Value Interpretation ----- <15.0 Antibody not detected > or = 15.0 Antibody detected THIS TEST WAS PERFORMED AT: [facility] [address] [place] [phone] MARIAN GUTIERREZ MD Endomysial IgA rflx Titer Reviewed date:12/17/2024 11:06:16 PM Interpretation: Performing Lab:[address] [address] Notes/Report: Endomysial IgA Antibody Negative Negative THIS TEST WAS PERFORMED AT: [facility] [facility] [facility] [id number] [place] [phone] NICOL GRAJEDA MD,PHD Endomysial Titer TNP Reason [...] AREDS 2 - as directed Orally Active [place] 3 Active Magnesium Oxide 400 MG 1 [...] Status Risk Notes Problem Already on aspirin (142120025) Long-term (current) use of aspirin (V58.66) Active confirmed Problem Colon cancer screening (619329553) Colon cancer screening (V76.51) Active confirmed Problem Anemia (824726051) Anemia (D64.9) Active confirmed Vital Signs Heart Rate 72 /min 11/23/2024 Temperature 96.9 degrees Fahrenheit 11/23/2024 Blood pressure diastolic 01 mm Hg 11/23/2024 Height 70.5 in 11/23/2024 Blood pressure systolic 001 mm Hg 11/23/2024 Weight 196.9 lbs 11/23/2024 BMI 27.85 kg/m2 11/23/2024 Encounters Encounter Location Date Provider Diagnosis [facility] [address] [place] [address] 11/23/2024 Ashish Locke Anemia D64.9 [facility] [address] [facility] [address] [place] [address] 01/04/2025 Ashish Locke Assessments Encounter Date Diagnosis (ICD Code) Assessment [...] Name:Ashish Locke , 05/23/2025 10:20:00 AM, [address] [facility], [address], [place], [address], Insurance Providers Payer Name Payer Address Payer Phone Subscriber Number Group Number Insured Name Patient Relationship to Insured Coverage Start Date Coverage End Date MEDICARE OF [place] [address] [place] [address] [phone] [id number] BRAD ROTHMAN Self - patient is the insured 5 [facility] [address] [place], [place] [phone] [id number] BRAD ROTHMAN Self - patient is the insured Medical (General) History Medical History History ICD Code NIDDM Hypertension Denies [place],CVA,Lung disease,renal disease CAD-3V CABG in 02/2011 Gout Skin cancer COVID pneumonia CHF Negative screening colonoscopy in 2013 Anemia Surgical History Surgery Date(Month/Year) Stimulator for pain relief in LE's 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
--- OUTSIDE RECORDS SUMMARY | 2025-01-09 15:25 | XMS_ITS | Clinical Summary ---
Author Organization [facility] [address] [facility] Address [address] [place] [address] Phone Care Team Providers Care Night Worker Name Role Phone Unavailable Primary Care Provider [...] (one) time each day. 02/22/20 25 Active od-mtn-LT-vit Y-hnnmly-osikkqq (PreserVision AREDS 2 Plus MV) 200 mcg-15 mcg- 5 mg-1 mg capsule Take by mouth. Activ e B complex-vitamin C tablet Take 1 tablet by mouth 1 (one) time each day. 30 tablet 02/22/20 25 Active omega 8-xks-jra-fish oil (Fish OiL) 1,200 (144-216) mg capsule [...] Vaccine: 50+ Years (2 of 2 - PCV20 or PCV21) 05/02/2020 05/02/2019 Cholesterol Screening (Lipid Panel) 01/30/2024 [...] age to complete this topic Insurance MEDICARE [facility]
== END 2025-01-09 13:04 | disposition home or self-care (01) ==
LOC: HO.WFDLDS 13:03
PROVIDERS: Internal Medicine Critical Care Medicine; Visit Provider Internal Medicine
DX: E83.42 Hypomagnesemia (principal); N18.9 Chronic kidney disease, unspecified
CPT/HCPCS: 36415; 80048

== ENCOUNTER 2025-01-18 10:53 | Outpatient (AMB) | payer MEDICARE, BC, SELFPAY ==
[2025-01-18 10:57] VITALS: BP 152/52; PULSE 79; O2SAT 99; BMI 26.5
--- NOTE | 2025-01-18 10:57 | HO.NEPHOV ---
Vital Signs 01/18/25 10:57 Height 5 ft 11 in Weight 190 lb BMI 26.5 BP 152/52 H Blood Pressure Location Lt brachial Position Sitting Pulse 79 Pulse Source Pulse Oximeter Pulse Oximetry (%) 99 Oxygen Delivery Method Room Air Intake Visit Reasons: 2mon f/u confirmed Oracle Fusion Middleware Architect Required: No Accompanied by: Spouse Allergies No Known Allergies Allergy (Verified 01/18/25 11:00) HPI Comments Details: 84-year-old gentleman with past medical history of hypertension, diabetes mellitus CAD, CHF status post CABG in 2009 macular degeneration is here for followup of hypomagnesemia accomapnied by his Brunilda. Excited about going to [place] for Halloween with great grandchildren with 3 boys under 6. He was hospitaized for 4 days due to volume overload at [facility], had a nuclear scan yesterday at [facility]. Hypertension: for more than 40 years Hydralazine 100 mg b.i.d. isosorbide ER 20, eplerenone, Entresto. Diabetes mellitus: On Jardiance, borderline. BPH: On tamsulosin CAD: CABG 2009, on lasix, rosuvastatin and above meds; most recent TTE in 05/2024 showed EF 45-50%, diastolic dysfunction, mild global hypokinesis. He is on magnesium glycinate 200 mg twice daily and is most recent magnesium levels of 1.5 PFSH Surgical History Hx of CABG History of knee surgery Hx of tonsillectomy Social History Housing: House Alcohol intake: never Patient Tobacco Use Status: Former Tobacco user Years Smoked: 40 e-Cigarette/Vaping Use: Never Used Second Hand Smoke Exposure: No service: Yes Current occupational status: retired Cognitive needs: No Hearing needs: Yes Vision needs: No Review of Systems Const Details: Const : no body aches, no chills, no excessive sweating and no fatigue Eyes: no blurry vision and no change in vision ENT: no bleeding gums and no change in voice, no dizziness Card: no chest pain, no shortness of breath, no orthopnea, no PND Resp: no cough, no excessive phlegm production, no SOB GI: no abdominal pain and no nausea, no vomiting : no hematuria, no urinary frequency and no difficulty voiding Musc: no abnormal gait, no bone pain Neuro: no abnormal movements, no weakness, no dizziness, no abnormal gait and no behavioral changes Psych: no behavioral changes and no change in appetite Endo: no change in body appearance, no cold intolerance, no excessive sweating and no fatigue Physical Exam Vital Signs: Last Vital Signs Pulse 79 01/18/25 10:57 BP 152/52 H 01/18/25 10:57 Pulse Ox 99 01/18/25 10:57 Oxygen Delivery Method Room Air 01/18/25 10:57 BMI result Body Mass Index 26.5 General: not in any acute distress, comfortable, sitting on the chair Nutritional Appearance: well nourished and weight Eyes: normal position, no icterus Neck: No lymphadenopathy, no thyromegaly Resp: bilateral air entry equal, no added sounds present Cardio: normal S1, S2 heard, no murmur heard, no edema GI: soft, nontender, no guarding, no hepatosplenomegaly : bladder normal to inspection, bladder normal to palpation, no renal angle tenderness Skin: no rashes or lesions noted and elasticity normal Neuro: oriented to person, oriented to place, oriented to time and moves all extremities Results Reviewed Nephrology Results: Hgb, (14.0-18.0) 10.1 g/dl L 11/25/24 WBC, (4.8-10.8) 5.2 X10*3/uL 11/25/24 Plt Count, (160-400) 201 X10*3/uL 11/25/24 Sodium, (135-145) 140 mmol/L 01/09/25 Potassium, (3.3-5.1) 4.7 mmol/L 01/09/25 Chloride, (96-108) 109 mmol/L H 01/09/25 Carbon Dioxide, (22-29) 25 mmol/L 01/09/25 BUN, (9-16) 44 mg/dL H 01/09/25 Creatinine, (0.5-1.4) 1.65 mg/dL H 01/09/25 Calcium, (8.4-10.2) 8.2 mg/dL L 01/09/25 Urine Protein, (Neg-Trace) 100 (2+) mg/dL H 09/25/25 Urine Creatinine 129.71 mg/dL 12/29/24 Renal US 11/18/24 Assessment & Plan Assessment & Plan (1) CHF (congestive heart failure): Code(s): I50.9 - Heart failure, unspecified Category: Medical Qualifiers: Heart failure type: combined systolic and diastolic Heart failure chronicity: chronic Qualified Code(s): I50.42 - Chronic combined systolic (congestive) and diastolic (congestive) heart failure (2) CAD (coronary artery disease): Code(s): I25.10 - Atherosclerotic heart disease of [place] coronary artery without angina pectoris Category: Medical Qualifiers: Coronary Disease-Associated Artery/Lesion type: bypass graft [place] vs. transplanted heart: [place] heart Associated angina: unspecified whether angina present Qualified Code(s): I25.810 - Atherosclerosis of coronary artery bypass graft(s) without angina pectoris (3) Chronic kidney disease: Code(s): N18.9 - Chronic kidney disease, unspecified Category: Medical Qualifiers: Chronic kidney disease stage: stage 4 (GFR 15-29) Qualified Code(s): N18.4 - Chronic kidney disease, stage 4 (severe) (4) Proteinuria: Code(s): R80.9 - Proteinuria, unspecified Category: Medical (5) Hypomagnesemia: Code(s): E83.42 - Hypomagnesemia Category: Medical Plan Hypomagnesemia: Possibly secondary renal loss from lasix more than poor GI absorption. This is too late in onset to be a genetic syndromes. FeMg is high; Would not be a candidate for 24 hours urine for magnesium or calcium excretion given his old age. - magnesium level: 1.5 in December; K:4.7 Ca:8.2 - will get Fractional excretion of Mg, K and Ca prior to next visit - symptoms: no tremors, seizures, weakness Chronic kidney disease stage IIIb/IV: - Possibly secondary to cardiorenal syndrome, creatinine around 1.65 - no family history of CKD, no history of renal stones in the past, no NSAID use. - urine microalbumin creatinine ratio 296 and UPCR 778 - no cells on Urinalysis - renal US shwoing normal sizes kidneys but multiple renal cysts. Will get MRI of kidneys to look for PCKD - avoid nephrotoxic medications not limited to NSAIDs, contrast etc. - importance of diet, weight loss, adequate blood pressure control well explained to patient; doesnt smoke anymore. - work up done so far: negativehepatitis panel, HIV, nromal ANCA, complements, SPEP, UPEP, serum free light chains, PLA2R. KYLEIGH positive 1:320 cytoplasmic or reticular pattern, will continue to monitor if he develops any signs or symptoms Hypertension: - target blood pressures less than 130/90 mm Hg - compliance: - continue Hydralazine 100 mg b.i.d. isosorbide ER 20, eplerenone, Entresto. Anemia of chronic kidney disease: - Hb 9.4, macrocytic - will get iron, TIBC, ferritin levels Orders: Orders Basic Metabolic Panel 3 Months I25.810 - Atherosclerosis of coronary artery bypass graft(s) without angina pectoris, I50.42 - Chronic combined systolic (congestive) and diastolic (congestive) heart failure, N18.4 - Chronic kidney disease, stage 4 (severe) Magnesium, Random Urine 3 Months I25.810 - Atherosclerosis of coronary artery bypass graft(s) without angina pectoris, I50.42 - Chronic combined systolic (congestive) and diastolic (congestive) heart failure, N18.4 - Chronic kidney disease, stage 4 (severe) Creatinine Urine 3 Months I25.810 - Atherosclerosis of coronary artery bypass graft(s) without angina pectoris, I50.42 - Chronic combined systolic (congestive) and diastolic (congestive) heart failure, N18.4 - Chronic kidney disease, stage 4 (severe) Total Protein Urine Random 3 Months I25.810 - Atherosclerosis of coronary artery bypass graft(s) without angina pectoris, I50.42 - Chronic combined systolic (congestive) and diastolic (congestive) heart failure, N18.4 - Chronic kidney disease, stage 4 (severe) Calcium, Random Urine 3 Months I25.810 - Atherosclerosis of coronary artery bypass graft(s) without angina pectoris, I50.42 - Chronic combined systolic (congestive) and diastolic (congestive) heart failure, N18.4 - Chronic kidney disease, stage 4 (severe) Magnesium 3 Months I25.810 - Atherosclerosis of coronary artery bypass graft(s) without angina pectoris, I50.42 - Chronic combined systolic (congestive) and diastolic (congestive) heart failure, N18.4 - Chronic kidney disease, stage 4 (severe) Potassium Urine Random 3 Months I25.810 - Atherosclerosis of coronary artery bypass graft(s) without angina pectoris, I50.42 - Chronic combined systolic (congestive) and diastolic (congestive) heart failure, N18.4 - Chronic kidney disease, stage 4 (severe) Microalbumin, Random (w Creat) 3 Months I25.810 - Atherosclerosis of coronary artery bypass graft(s) without angina pectoris, I50.42 - Chronic combined systolic (congestive) and diastolic (congestive) heart failure, N18.4 - Chronic kidney disease, stage 4 (severe) Coding Level of Care Code Est Pt Level 4 (54279) Diagnoses Chronic combined systolic and diastolic congestive heart failure I50.42 Heart failure type: combined systolic and diastolic Heart failure chronicity: chronic Coronary artery disease involving coronary bypass graft of [place] heart, unspecified whether angina present I25.810 Coronary Disease-Associated Artery/Lesion type: bypass graft [place] vs. transplanted heart: [place] heart Associated angina: unspecified whether angina present Stage 4 chronic kidney disease N18.4 Chronic kidney disease stage: stage 4 (GFR 15-29) Proteinuria R80.9 Hypomagnesemia E83.42
--- OUTSIDE RECORDS SUMMARY | 2025-01-18 13:20 | XMS_ITS | Clinical Summary ---
Author Organization [facility] Address [address] [place] [address] Phone Care Team Providers Care Financial Center Manager Name Role Phone Maureen Mata MD [...] Devices Not [place] [address] MEDICARE PART A [place] [id number] [facility] MEDIC[facility] PART A & B [facility] MEDIC[facility] PART A & B [facility] MEDICARE PART A & B [facility] POS MED[facility]ARE PART A & B [facility] POS MEDICARE PART A & B [facility] POS Care Teams Financial Center Manager Relationship Specialty Start Date End Date Maureen Mata MD PCP - General Internal Medicine 08/22/24 Additional Source Comments The information contained in this document represents components of the legal health record. It is not the complete legal health record.[facility]
--- OUTSIDE RECORDS SUMMARY | 2025-01-18 13:20 | XMS_ITS | Clinical Summary ---
Author Organization [facility] [address] [facility] Address [address] [place] [address] Phone Care Team Providers Care Senior Marketing Manager Name Role Phone Unavailable Primary Care Provider [...] (one) time each day. 02/22/20 25 Active mo-qej-JY-vit F-ufrzki-scapilu (PreserVision AREDS 2 Plus MV) 200 mcg-15 mcg- 5 mg-1 mg capsule Take by mouth. Activ e B complex-vitamin C tablet Take 1 tablet by mouth 1 (one) time each day. 30 tablet 02/22/20 25 Active omega 4-lsp-sng-fish oil (Fish OiL) 1,200 (144-216) mg capsule [...] age to complete this topic Insurance MEDICARE [facility]
--- OUTSIDE RECORDS SUMMARY | 2025-01-18 13:20 | XMS_ITS | Encounter Summary ---
Author Organization [facility] Address [address] [place] [address] Phone Care Team Providers Care Curator Of Manuscripts Name Role Phone Maureen Mata MD Primary Care Provider [phone] Encounter Details Date Type Department Care Team (Late st Contact Info) Description 08/17/2024 Procedure [facility], Ct Scan - [address] [address] Social History Tobacco Use Types Packs/Day Years [...] on filedocumented in this encounter Care Teams Curator Of Manuscripts Relationship Specialty Start Date End Date Maureen Mata MD PCP - General Internal Medicine 08/22/24 documented as of this encounter Additional Source Comments The information contained in this document represents components of the legal health record. It is not the complete legal health record.[facility]
--- OUTSIDE RECORDS SUMMARY | 2025-01-18 13:20 | XMS_ITS | Encounter Summary ---
Author Organization [facility] Address [address] [facility] [address] [place] [phone] Phone Care Team Providers Care Tip Banding Machine Operator Name Role Phone Maureen Mata MD Primary Care Provider Reason for Referral * MRI/CAT Scan - Closed Specialty Diagnoses / Procedures Referred By Contac t Referred To Contact Radiology Diagnoses Spinal stenosis, lumbosacral region Radiculopathy, lumbar region Procedures CT Lumbar Spine [place] [address] [address] Phone: tel: fax: Referral ID Status Reason Start Date Expiration Date Visits Re quested Visits Authorized [id number] Closed 08/17/2024 08/17/2025 1 1 Encounter Details Date Type Department Care Team (Latest Contact Info) Description 08/17/2024 Transcribe Orders Virtual Department [address] [place] [address] [place] [address] [address] Spinal stenosis, lumbosacral region (Primary Dx); Radiculopathy, [...] unspecified documented in this encounter Care Teams Tip Banding Machine Operator Relationship Specialty Start Date End Date Maureen Mata MD PCP - General Internal Medicine 08/22/24 documented as of this encounter Additional Source Comments The information contained in this document represents components of the legal health record. It is not the complete legal health record.[facility]
== END 2025-01-18 11:52 | disposition home or self-care (01) ==
LOC: HO.HKAS 10:54
PROVIDERS: PCP Internal Medicine; Visit Provider Internal Medicine Critical Care Medicine
DX: I50.42 Chronic combined systolic (congestive) and diastolic (congestive) heart failure (principal); I25.810 Atherosclerosis of coronary artery bypass graft(s) without angina pectoris; N18.4 Chronic kidney disease, stage 4 (severe); R80.9 Proteinuria, unspecified; E83.42 Hypomagnesemia
CPT/HCPCS: 99214

== ENCOUNTER → 2025-01-18 10:53 | Outpatient (BNVA) | payer MEDICARE, BC, SELFPAY | PROVIDERS: PCP Internal Medicine; Visit Provider Internal Medicine Critical Care Medicine | DX: E11.22 Type 2 diabetes mellitus with diabetic chronic kidney disease (principal); I13.0 Hypertensive heart and chronic kidney disease with heart failure and stage 1 through stage 4 chronic kidney disease, or unspecified chronic kidney disease; N18.4 Chronic kidney disease, stage 4 (severe); I50.9 Heart failure, unspecified; I25.810 Atherosclerosis of coronary artery bypass graft(s) without angina pectoris; R80.9 Proteinuria, unspecified; E83.42 Hypomagnesemia; Z79.84 Long term (current) use of oral hypoglycemic drugs | CPT/HCPCS: 99212 ==

== ENCOUNTER 2025-01-23 10:02 | Outpatient (AMB) | payer MEDICARE, BC, SELFPAY ==
--- NOTE | 2025-01-23 10:06 | MHC.PC.OV ---
Vital Signs 01/23/25 10:14 Height 5 ft 11 in Weight 188 lb 6 oz BMI 26.3 BP 110/58 L Blood Pressure Location Lt brachial Position Sitting Respiration 20 Pulse 76 Pulse Source Pulse Oximeter Temp 97.7 F Temp Source Oral Pulse Oximetry (%) 97 Oxygen Delivery Method Room Air Intake Visit Reasons: follow up Intake Note: follow up Threshing Machine Operator Required: No Allergies No Known Allergies Allergy (Verified 01/23/25 10:11) Tobacco use date assessed: 01/23/25 Dental Screening Dental Screen Date: 01/23/25 Did you have a dental visit in the last 12 months?: Yes Did you have a dental problem in the last 6 months where you did not have access to dental care?: No Was dental information given to patient?: Patient has dentist HPI HPI Comments History of Present Illness Details The patient is an 85 year old male with a past medical history of CHF, ICM, h/o CABG 2009, s/p repair, macular degeneration, hearing loss and back pain presenting for follow up He was hospitalized from 12/21-12/24/24. Prior to this hospitalized Nov 28-Nov 29 for CHF exacerbation,newly decreased EF and Lasix increased but outpatient bmp with JONNY low K and Na so decreased to 40mg. Presented to ER 12/21 with increased shortness of breath, orthopnea from cardiology office-BP was soft and patient appeared hypervolemic. EKG afib slow ventricular response rate, incomplete LBBB and ST and T wave changes. K 5.6 Na 125 Cr 2.52. Received lokelma. Cardiorenal syndrome. Patient has been experiencing sob regularly for years, since he had pneumonia from Covid. Patient was told by his surveying teacher that he has a lung disease. Patient is asymptomatic sitting and not moving but once he moves around he becomes short of breath. He also experiences shortness of breath while lying down, and has to sleep upright, sometimes in his armchair. CV: Saw Jigar Traore last week. Labs including K, Cr stable (CKD). On entresto, crestor, lasix-on 40mg daily, ASA, omega. Off imdur, hydralazine, farxiga. Follows with cardiology Dr Forde and Jigar Traore CKD: sees nephrology, Dr Batista. Has labs, urine to do prior to next visit. Advised to take prescription Mag-I sent today. It remains low Urology: On flomax MSK Chronic low back pain. Trouble sleeping. Had spinal stimulator.Gets cortisone injections Follows with Dr Velázquez. Gout-on allopurinol. No recent flare Wet macular degeneration. Follows with optho Derm- ear surgery-[facility] [place]. GI: ongoing issues with loose stools. some interval improvement. Ongoing. Horrible taste in his mouth. H pylori and cdiff negative. ROS see HPI PHYSICAL EXAM: GENERAL: Alert and oriented x 3. NAD EYES: EOMI. Anicteric. HENT: Moist mucous membranes. +thrush. No scleral icterus. No cervical lymphadenopathy. LUNGS: Clear to auscultation bilaterally. Poor air entry CARDIOVASCULAR: Regular rate and rhythm. Loud systolic murmur. No JVD. ABDOMEN: Soft, non-tender +bs EXTREMITIES: 1+ edema b/l Non-tender. SKIN: No rashes or lesions. Warm. NEUROLOGIC: No focal neurological deficits. CN II-XII grossly intact PSYCHIATRIC: Cooperative. Appropriate mood and affect [facility] Surgical History Hx of CABG History of knee surgery Hx of tonsillectomy Social History Housing: House Alcohol intake: never Patient Tobacco Use Status: Former Tobacco user Years Smoked: 40 e-Cigarette/Vaping Use: Never Used Second Hand Smoke Exposure: No service: Yes Current occupational status: retired Cognitive needs: No Hearing needs: Yes Vision needs: No Questionnaire Thrive Questionnaire Date Thrive assessed: 09/20/24 I am a: Patient What is your living situation today?: I have a steady place to live Within the past 12 months, did the food you bought not last and you didn't have the money to get more?: Never true Within the past 12 months, did you worry whether your food would run out before you got money to buy more?: Never true Do you have trouble paying for medicines?: No Do you have trouble getting transportation to medical appointments?: No Do you have trouble paying your heating and electricity bill?: No Do you have trouble taking care of your child, family member or friend?: No Do you have trouble with day-to-day activities such as bathing, preparing meals, shopping, managing finances, etc.?: No Are you currently unemployed and looking for a job?: I choose not to answer this question Are you interested in more education?: No Please select the resources that you would like help with: None Currently or been in a relationship where the following occur: I choose not to answer THRIVE Score: 0 LUCAS-7 AMB Questionnaire LUCAS-7 Date LUCAS - 7 assessed: 09/20/24 Source: Developed by Drs. Ashish North, Zunilda Fournier, Ignacio Dimas and colleagues, with an educational june from [employer]. Physical exam (Primary Care) Vital Signs: Last Vital Signs Temp 97.7 F 01/23/25 10:14 Pulse 76 01/23/25 10:14 Resp 20 01/23/25 10:14 BP 110/58 L 01/23/25 10:14 Pulse Ox 97 01/23/25 10:14 Oxygen Delivery Method Room Air 01/23/25 10:14 BMI result Body Mass Index 26.3 Tobacco/Smoking Status: Tobacco use Status Tobacco use date assessed 01/23/25 01/23/25 10:19 Patient Tobacco Use Status Former Tobacco user 01/23/25 10:14 e-Cigarette/Vaping Use Never Used 01/23/25 10:14 Thrive Assessment: Date of Thrive Assessment Date Thrive assessed 09/20/24 01/23/25 10:07 Currently or been in a relationship where the following occur: I choose not to answer Coding Level of Care Code Est Pt Level 4 (61536) Diagnoses Chronic combined systolic and diastolic congestive heart failure I50.42 Heart failure type: combined systolic and diastolic Heart failure chronicity: chronic Coronary artery disease involving coronary bypass graft of [place] heart, unspecified whether angina present I25.810 Coronary Disease-Associated Artery/Lesion type: bypass graft [place] vs. transplanted heart: [place] heart Associated angina: unspecified whether angina present Diarrhea, unspecified type R19.7 Diarrhea type: unspecified type Stage 4 chronic kidney disease N18.4 Chronic kidney disease stage: stage 4 (GFR 15-29) Assessment & Plan Assessment & Plan (1) CHF (congestive heart failure): Code(s): I50.9 - Heart failure, unspecified Category: Medical Qualifiers: Heart failure type: combined systolic and diastolic Heart failure chronicity: chronic Qualified Code(s): I50.42 - Chronic combined systolic (congestive) and diastolic (congestive) heart failure (2) CAD (coronary artery disease): Code(s): I25.10 - Atherosclerotic heart disease of [place] coronary artery without angina pectoris Category: Medical Qualifiers: Coronary Disease-Associated Artery/Lesion type: bypass graft [place] vs. transplanted heart: [place] heart Associated angina: unspecified whether angina present Qualified Code(s): I25.810 - Atherosclerosis of coronary artery bypass graft(s) without angina pectoris (3) Diarrhea: Code(s): R19.7 - Diarrhea, unspecified Category: Medical Qualifiers: Diarrhea type: unspecified type Qualified Code(s): R19.7 - Diarrhea, unspecified (4) Chronic kidney disease: Code(s): N18.9 - Chronic kidney disease, unspecified Category: Medical Qualifiers: Chronic kidney disease stage: stage 4 (GFR 15-29) Qualified Code(s): N18.4 - Chronic kidney disease, stage 4 (severe) Plan 85 year old male presenting for follow up Lost 2 pounds since last visit on increased lasix at 40mg daily. Cr is stable. continue cardiology nephrology follow up. euvolemic today Slow Mg ordered Chronic shortness of breath. Upcoming PFTs, pulm consult Medications: New magnesium chloride (Slow-Mag) 143 mg (2 x 71.5 mg) PO BID 360 tabs 3RF Discontinued magnesium glycinate Discontinued Reason: Duplicate 200 mg (2 x 100 mg) PO BID 180 tabs 3RF
[2025-01-23 10:14] VITALS: BP 110/58; PULSE 76; RESP 20; TEMP 36.5; O2SAT 97; BMI 26.3
== END 2025-01-23 10:53 | disposition home or self-care (01) ==
LOC: HO.HMCFM 10:03
PROVIDERS: PCP Internal Medicine; Visit Provider Internal Medicine
DX: I50.42 Chronic combined systolic (congestive) and diastolic (congestive) heart failure (principal); I25.810 Atherosclerosis of coronary artery bypass graft(s) without angina pectoris; R19.7 Diarrhea, unspecified; N18.4 Chronic kidney disease, stage 4 (severe)

== ENCOUNTER → 2025-01-23 10:02 | Outpatient (BNVA) | payer MEDICARE, BC, SELFPAY | PROVIDERS: PCP Internal Medicine; Visit Provider Internal Medicine | DX: I25.810 Atherosclerosis of coronary artery bypass graft(s) without angina pectoris (principal); I50.42 Chronic combined systolic (congestive) and diastolic (congestive) heart failure; R19.7 Diarrhea, unspecified; N18.4 Chronic kidney disease, stage 4 (severe); Z87.891 Personal history of nicotine dependence | CPT/HCPCS: 99212 ==

== ENCOUNTER 2025-02-13 10:06 | Outpatient (AMB) | payer MEDICARE, BC, SELFPAY ==
--- NOTE | 2025-02-13 10:12 | MHC.PC.OV ---
Vital Signs 02/13/25 10:13 Height 5 ft 11 in Weight 188 lb 4 oz BMI 26.3 BP 134/48 L Blood Pressure Location Rt brachial Position Sitting Respiration 16 Pulse 69 Pulse Source Pulse Oximeter Temp 98 F Temp Source Oral Pulse Oximetry (%) 98 Oxygen Delivery Method Room Air Intake Visit Reasons: follow up Intake Note: Follow up Vp Home Health Required: No Allergies No Known Allergies Allergy (Verified 02/13/25 10:16) Tobacco use date assessed: 02/13/25 Fall risk assessment: No Falls in past year Last assessed Fall Risk: 02/13/25 Dental Screening Dental Screen Date: 01/23/25 HPI HPI Comments History of Present Illness Details The patient is an 85 year old male with a past medical history of CHF, ICM, h/o CABG 2009, s/p repair, macular degeneration, hearing loss and back pain presenting for follow up CV: Follows the [facility]. On entresto, crestor, lasix-on 40mg daily, ASA, omega, back on farxiga and eplerenon.. Off imdur, hydralazine.Follows with cardiology Dr Forde and Jigar Traore. He was hospitalized from 12/21-12/24/24, Nov 28-Nov 29 for CHF exacerbation. CKD: sees nephrology, Dr Batista. Urology: On flomax MSK Chronic low back pain. Trouble sleeping. Had spinal stimulator.Gets cortisone injections Follows with Dr Velázquez. Gout-on allopurinol. No recent flare Wet macular degeneration. Follows with optho Derm- ear surgery-sushma [place]. GI: chronic loose stools. Horrible taste in his mouth. H pylori and cdiff negative. ROS see HPI PHYSICAL EXAM: GENERAL: Alert and oriented x 3. NAD EYES: EOMI. Anicteric. HENT: Moist mucous membranes. No cervical lymphadenopathy. LUNGS: Clear to auscultation bilaterally. Poor air entry CARDIOVASCULAR: Regular rate and rhythm. Loud systolic murmur. No JVD. ABDOMEN: Soft, non-tender +bs EXTREMITIES: No LE edema SKIN: No rashes or lesions. Warm. NEUROLOGIC: No focal neurological deficits. CN II-XII grossly intact PSYCHIATRIC: Cooperative. Appropriate mood and affect [facility] Surgical History Hx of CABG History of knee surgery Hx of tonsillectomy Social History Housing: House Alcohol intake: never Patient Tobacco Use Status: Former Tobacco user Years Smoked: 40 e-Cigarette/Vaping Use: Never Used Second Hand Smoke Exposure: No service: Yes Current occupational status: retired Cognitive needs: No Hearing needs: Yes Vision needs: No Questionnaire Thrive Questionnaire Date Thrive assessed: 09/20/24 I am a: Patient What is your living situation today?: I have a steady place to live Within the past 12 months, did the food you bought not last and you didn't have the money to get more?: Never true Within the past 12 months, did you worry whether your food would run out before you got money to buy more?: Never true Do you have trouble paying for medicines?: No Do you have trouble getting transportation to medical appointments?: No Do you have trouble paying your heating and electricity bill?: No Do you have trouble taking care of your child, family member or friend?: No Do you have trouble with day-to-day activities such as bathing, preparing meals, shopping, managing finances, etc.?: No Are you currently unemployed and looking for a job?: I choose not to answer this question Are you interested in more education?: No Please select the resources that you would like help with: None Currently or been in a relationship where the following occur: I choose not to answer THRIVE Score: 0 AUDIT C Alcohol Use Questionnaire (AUDIT-C) 1. How often do you have a drink containing alcohol?: Monthly or less 2. How many drinks containing alcohol do you have on a typical day when you are drinking?: 1 or 2 3. How often do you have six or more drinks on one occasion?: Never Total Score: 1 LUCAS-7 AMB Questionnaire LCUAS-7 Date LUCAS - 7 assessed: 09/20/24 Source: Developed by Drs. Ashish North, Zunilda Fournier, Ignacio Dimas and colleagues, with an educational june from [employer]. Physical exam (Primary Care) Vital Signs: Last Vital Signs Temp 98 F 02/13/25 10:13 Pulse 69 02/13/25 10:13 Resp 16 02/13/25 10:13 BP 134/48 L 02/13/25 10:13 Pulse Ox 98 02/13/25 10:13 Oxygen Delivery Method Room Air 02/13/25 10:13 BMI result Body Mass Index 26.3 Tobacco/Smoking Status: Tobacco use Status Tobacco use date assessed 02/13/25 02/13/25 10:19 Patient Tobacco Use Status Former Tobacco user 02/13/25 10:19 e-Cigarette/Vaping Use Never Used 02/13/25 10:19 Thrive Assessment: Date of Thrive Assessment Date Thrive assessed 09/20/24 02/13/25 10:19 Currently or been in a relationship where the following occur: I choose not to answer Coding Level of Care Code Est Pt Level 4 (93596) Complex EM visit Add On G2211 Diagnoses Chronic combined systolic and diastolic congestive heart failure I50.42 Heart failure type: combined systolic and diastolic Heart failure chronicity: chronic Coronary artery disease involving coronary bypass graft of [place] heart, unspecified whether angina present I25.810 Coronary Disease-Associated Artery/Lesion type: bypass graft [place] vs. transplanted heart: [place] heart Associated angina: unspecified whether angina present Stage 4 chronic kidney disease N18.4 Chronic kidney disease stage: stage 4 (GFR 15-29) Assessment & Plan Assessment & Plan (1) CHF (congestive heart failure): Code(s): I50.9 - Heart failure, unspecified Category: Medical Qualifiers: Heart failure type: combined systolic and diastolic Heart failure chronicity: chronic Qualified Code(s): I50.42 - Chronic combined systolic (congestive) and diastolic (congestive) heart failure (2) CAD (coronary artery disease): Code(s): I25.10 - Atherosclerotic heart disease of [place] coronary artery without angina pectoris Category: Medical Qualifiers: Coronary Disease-Associated Artery/Lesion type: bypass graft [place] vs. transplanted heart: [place] heart Associated angina: unspecified whether angina present Qualified Code(s): I25.810 - Atherosclerosis of coronary artery bypass graft(s) without angina pectoris (3) Chronic kidney disease: Code(s): N18.9 - Chronic kidney disease, unspecified Category: Medical Qualifiers: Chronic kidney disease stage: stage 4 (GFR 15-29) Qualified Code(s): N18.4 - Chronic kidney disease, stage 4 (severe) Plan CHF-euvolemic on current medications. continue cardiology follow up CKD-cardiorenal. Close follow up with nephrology Elevated glucose-check A1C Low potassium-pending cards labs Orders: Orders Hemoglobin A1c Today R73.09 - Other abnormal glucose
[2025-02-13 10:13] VITALS: BP 134/48; PULSE 69; RESP 16; TEMP 36.6; O2SAT 98; BMI 26.3
--- OUTSIDE RECORDS SUMMARY | 2025-02-13 11:49 | XMS_ITS | Clinical Summary ---
Author Organization [facility] [address] [facility] Address [address] [place] [address] Phone Care Team Providers Care Information Broker Name Role Phone Unavailable Primary Care Provider [...] (one) time each day. 02/22/20 25 Active ip-mcq-GI-vit T-nwqdub-qbfxjyt (PreserVision AREDS 2 Plus MV) 200 mcg-15 mcg- 5 mg-1 mg capsule Take by mouth. Activ e B complex-vitamin C tablet Take 1 tablet by mouth 1 (one) time each day. 30 tablet 02/22/20 25 Active omega 4-xur-ryh-fish oil (Fish OiL) 1,200 (144-216) mg capsule [...] age to complete this topic Insurance MEDICARE [facility]
--- OUTSIDE RECORDS SUMMARY | 2025-02-13 11:49 | XMS_ITS | Clinical Summary ---
Author Organization [facility] Address [address] [place] [address] Phone Care Team Providers Care Loading And Unloading Supervisor Name Role Phone Maureen Mata MD Primary [...] [place] [id number] [place] [id number] [facility] & [facility] MEDICARE PART A & B [facility] POS MEDICARE PART [facility] & [facility] MEDICARE PART A & B [facility] HMO POS MEDICARE PART A & B [facility] HMO POS Care Teams Loading And Unloading Supervisor Relationship Specialty Start Date End Date Maureen Mata MD PCP - General Internal Medicine 08/22/24 Additional Source Comments The information contained in this document represents components of the legal health record. It is not the complete legal health record.[facility]
--- OUTSIDE RECORDS SUMMARY | 2025-02-13 11:49 | XMS_ITS | Encounter Summary ---
Author Organization [facility] Address [address] [place] [phone] Phone Care Team Providers Care Minesweeping Officer Name Role Phone Maureen Mata MD Primary Care Provider Encounter Details Date Type Department Care Team (Late st Contact Info) Description 08/17/2024 Procedure Pass [facility], Ct Scan - [address] [address] Social History Tobacco Use Types Packs/Day Years [...] on filedocumented in this encounter Care Teams Minesweeping Officer Relationship Specialty Start Date End Date Maureen Mata MD PCP - General Internal Medicine 08/22/24 documented as of this encounter Additional Source Comments The information contained in this document represents components of the legal health record. It is not the complete legal health record.[facility]
--- OUTSIDE RECORDS SUMMARY | 2025-02-13 11:49 | XMS_ITS | Clinical Summary ---
Author Organization [facility] Address [address] [place] [address] Phone Care Team Providers Care Foxing Closer Name Role Phone Maureen Donovan MD Primary Care Provider [phone] Allergies No known active allergies Medications tamsulosin (FLOMAX) 0.4 MG 24 hr capsule Take 0.4 mg by mouth in the morning. 2 02/22/20 25 Active sacubitril-vals quyen (Entresto) 97-103 MG per tablet TAKE 1 TABLET BY MOUTH 2 TIMES A DAY, DOSE INCREASE Active omeprazole (PriLOSEC) [address] capsule Take by mouth 1 (one) time each day Active [place]-3 Fatty Acids ([place]-3 Fish Oil) 1200 MG capsule Take 1 capsule by mouth in the morning. 4 Active nitroglycerin (NITROSTAT) 0.4 MG SL tablet See Instructions, PLACE 1 TABLET UNDER TONGUE NEEDED FOR CHEST PAIN OR ACUTE SHORTNESS OF BREATH...UP TO 3 TABLETS...EAC H 5 MINUTES APARTCALL 911 IF NO RELIEF, # 25 tablet, 2 Refills, 06/21/24 1:11:00 PM EDT, [id number], 181, cm, 05/04/24 13:34:00 EST, Height, 85, kg, 10/22/23 18:19:00 EDT, Dry Weight 5 Active eplerenone (INSPRA) 25 MG tablet Take 25 mg by mouth 1 (one) time each day Active furosemide (LASIX) 40 MG tablet Take 60 mg by mouth 1 (one) time each day 5 Active Dapagliflozin Propanediol 10 MG tablet Take 10 mg by mouth in the morning. 4 Active MAGNESIUM OXIDE 400 PO Take by mouth Active aspirin (ST BAM) 81 MG EC tablet Take 81 mg by mouth 1 (one) time each day Active allopurinol (ZYLOPRIM) 300 MG tablet Take 300 mg by mouth 1 (one) time each day Active tamsulosin (FLOMAX) 0.4 MG 24 hr capsule Take 0.4 mg by mouth at bed time 02/02/20 Discontinu ed(Med List Maintenanc e) sodium chloride 1 g tablet take 1 tablet by mouth daily for 3 days 5 02/02/20 Discontinu ed(Med List Maintenanc e) simvastatin (ZOCOR) 40 MG tablet Take 20 mg by mouth 0 02/02/20 Discontinu ed(Med List Maintenanc e) rosuvastatin (CRESTOR) 10 MG tablet Take 10 mg by mouth at bed time 02/02/20 Discontinu ed(Med List Maintenanc e) pentoxifylline (TRENtal) 400 MG CR tablet Take 400 mg by mouth 1 (one) time each day 0 02/02/20 Discontinu ed(Med List Maintenanc e) omeprazole (PriLOSEC) [address] capsule Take 40 mg by mouth in the morning. 4 02/02/20 Discontinu ed(Med List Maintenanc e) nystatin (MYCOSTATIN) 756188 UNIT/ML suspension SWISH AND SPIT 1 ML BUCCALLY DAILY FOR 14 DAYS 5 02/02/20 Discontinu ed(Med List Maintenanc e) Active Problems Problem Noted Date Diagnosed Date Anemia 02/01/2025 Allergic disposition 02/01/2025 Acute systolic heart failure 02/01/2025 Pittman's esophagus 02/01/2025 Benign essential hypertension 02/01/2025 Bradycardia 02/01/2025 Chest pain 02/01/2025 Flank pain 02/01/2025 Low back pain 02/01/2025 Chronic kidney disease stage 3B 02/01/2025 Overview (02/01/2025): Per chart review meets GFR criteria Claudication 02/01/2025 Community acquired pneumonia 02/01/2025 COVID-19 02/01/2025 Coronary arteriosclerosis 02/01/2025 Diabetes mellitus 02/01/2025 Fatigue 02/01/2025 Gastroesophageal reflux disease 02/01/2025 Gout 02/01/2025 Headache 02/01/2025 Neck pain 02/01/2025 Heart failure 02/01/2025 Hyperlipidemia 02/01/2025 Hypoxemic respiratory failure 02/01/2025 Ileitis 02/01/2025 Kidney injury 02/01/2025 Lactic acidosis 02/01/2025 Neuropathy due to diabetes mellitus 02/01/2025 Hypertensive disorder 02/01/2025 Peripheral vascular disease 02/01/2025 Surgical follow-up 09/28/2024 Basal cell carcinoma of face 08/23/2024 Disorder of pigmentation 12/30/2023 Inflamed seborrheic keratosis 12/30/2023 Seborrheic keratosis 12/30/2023 Melanocytic nevus of left lower limb 12/30/2023 Melanocytic nevus of right lower limb 12/30/2023 Melanocytic nevus of left upper limb 12/30/2023 Melanocytic nevus of right upper limb 12/30/2023 Onychomycosis due to dermatophyte 12/30/2023 Basal cell carcinoma of ear 03/06/2023 History of clinical finding in subject 3 Seborrheic keratosis 03/06/2023 Squamous cell carcinoma of skin of ear 3 Inflamed seborrheic keratosis 12/05/2022 Seborrheic keratosis 12/05/2022 COVID-19 12/25/2021 Overview (02/01/2025): Problem added by Discern Expert Seborrheic keratosis 10/11/2021 Scar conditions and fibrosis of skin 10/11/2021 Ichthyosis vulgaris 04/27/2020 Melanocytic nevus of trunk 04/27/2020 Tinea pedis 04/27/2020 Tinea unguium 04/27/2020 Arthritis 04/12/2019 Benign prostatic hyperplasia 04/12/2019 Basal cell carcinoma of skin of other part of fa ce 04/11/2019 Hemangioma of skin and subcutaneous tissue 04/11 History of malignant neoplasm of skin 04/11/2019 Other seborrheic keratosis 04/11/2019 Melanocytic nevus 04/11/2019 Other melanin hyperpigmentation 04/11/2019 Actinic keratosis 12/31/2018 Hypercholesterolemia 12/31/2018 Senile hyperkeratosis 11/26/2015 Neoplasm of uncertain behavior of skin 4 Encounters Date Type Department Care Team Description 02/01/2025 1:00 PM EDT Office Visit [facility] [address] [place] [address] Milton Middleton MD Stage 3 chronic kidney disease, not otherwise specified (HCC) (Primary Dx); Heart failure with reduced ejection fraction (HCC); Hypertension 02/01/2025 Orders Only [facility] [address] [address] ProviderBere MD from Last 3 Months Family History Medical History Relation Comments Heart disease Mother Relation Status Comments Mother Social History Tobacco Use Types Packs/Day Years Used Date Smoking Tobacco: Former Cigarettes Pipe Smokeless Tobacco: Never Tobacco Cessation:Counseling Given: Not Answered Alcohol Use Standard Drinks/Week Comments Not Currently 0 (1 standard drink = 0.6 oz pur e alcohol) Sex and Gender Information Value Date Recorded Sex Assigned at Not on file Legal Sex Male 1:36 PM EDT Gender Identity Not on file Sexual Orientation Not on file Last Filed Vital Signs Vital Sign Reading Time Taken Comments Blood Pressure 120/52 02/01/2025 1:16 PM EDT Pulse 72 02/01/2025 1:16 PM EDT Temperature - - Respiratory Rate - - Oxygen Saturation - - Inhaled Oxygen Concentration - - Weight 82.6 kg (182 lb 1.6 oz) 02/01/2025 1:16 P M EDT Height 180.3 cm (5' 11 ) 02/01/2025 1:16 PM EDT Body Mass Index 25.4 02/01/2025 1:16 PM EDT Plan of Treatment Upcoming Encounters Date Type Department Care Team (Late st Contact Info) Description 03/08/2025 2:45 PM EST [facility] Visit [facility]. [address] [place] [phone] Milton Middleton MD [address] [facility] [address] [place] [address] Health Maintenance Due Date Last Done Comments Pneumococcal Vaccine: 50+ Ye ars (2 of 2 - PPSV23, PCV20, or PCV21) 06/27/2019 05/02/2019 Influenza Vaccine (#1) 2024 Diabetes: Hemoglobin A1C 01/19/2025 Diabetes: Ophthalmology Exam 01/19/2025 Diabetes: Pedal Pulse Checked 01/19/2025 Diabetes: Sensory Foot Exam 01/19/2025 Diabetes: Visual Foot Exam 01/19/2025 Hepatitis B Vaccine Aged Out No longe r eligible based on patient's age to complete this topic Procedures Procedure Name Priority Date/Time Associated Diagnosis Comments RENAL FUNCTION PANEL (EXTERNAL LAB ENTRY) Routine 01/19/2025 9:07 AM EDT RENAL FUNCTION PANEL (EXTERNAL LAB ENTRY) Routine 01/19/2025 from Last 3 Months Results * Renal Function Panel (External Lab) (01/19/2025 9:07 AM EDT) Only the most recent of2 resultswithin the time period is included. Blood us Historical Provider LAB BLOOD ORDERABLES Fallon l Result from Last 3 Months Insurance Medicare Care Teams Foxing Closer Relationship Specialty Start Date End Date Maureen Donovan MD [address] [place] [address], [address] [place], [place] [id number] PCP - General Internal Medicine 02/01/25
--- OUTSIDE RECORDS SUMMARY | 2025-02-13 11:49 | XMS_ITS | Encounter Summary ---
Author Organization [facility] Address [address] [facility] [address] [place] [address] Phone Care Team Providers Care Sequins Winder Name Role Phone Maureen Mata MD Primary Care Provider Reason for Referral * MRI/CAT Scan - Closed Specialty Diagnoses / Procedures Referred By Contac t Referred To Contact Radiology Diagnoses Spinal stenosis, lumbosacral region Radiculopathy, lumbar region Procedures CT Lumbar Spine [place] [address] [address] Phone: tel: fax: Referral ID Status Reason Start Date Expiration Date Visits Re quested Visits Authorized [id number] Closed 08/17/2024 08/17/2025 1 1 Encounter Details Date Type Department Care Team (Latest Contact Info) Description 08/17/2024 Transcribe Orders Virtual Department [address] [place] [address] [place] [address] [address] Spinal stenosis, lumbosacral region (Primary Dx); Radiculopathy, [...] unspecified documented in this encounter Care Teams Sequins Winder Relationship Specialty Start Date End Date Maureen Mata MD PCP - General Internal Medicine 08/22/24 documented as of this encounter Additional Source Comments The information contained in this document represents components of the legal health record. It is not the complete legal health record.[facility]
== END 2025-02-13 10:36 | disposition home or self-care (01) ==
LOC: HO.HMCFM 10:07
PROVIDERS: PCP Internal Medicine; Visit Provider Internal Medicine
DX: I50.42 Chronic combined systolic (congestive) and diastolic (congestive) heart failure (principal); I25.810 Atherosclerosis of coronary artery bypass graft(s) without angina pectoris; N18.4 Chronic kidney disease, stage 4 (severe)

== ENCOUNTER → 2025-02-13 10:06 | Outpatient (BNVA) | payer MEDICARE, BC, SELFPAY | PROVIDERS: PCP Internal Medicine; Visit Provider Internal Medicine | DX: I50.42 Chronic combined systolic (congestive) and diastolic (congestive) heart failure (principal); I25.810 Atherosclerosis of coronary artery bypass graft(s) without angina pectoris; N18.4 Chronic kidney disease, stage 4 (severe); M10.9 Gout, unspecified; H35.30 Unspecified macular degeneration; M54.50 Low back pain, unspecified; G89.29 Other chronic pain; Z79.82 Long term (current) use of aspirin; Z79.899 Other long term (current) drug therapy; Z95.1 Presence of aortocoronary bypass graft | CPT/HCPCS: 99212 ==

== ENCOUNTER 2025-02-23 08:51 | Outpatient (REF) | payer MEDICARE, BC, SELFPAY ==
--- OUTSIDE RECORDS SUMMARY | 2024-11-23 10:55 | XMS_ITS ---
Author Organization [facility] Address [address] [place] [address] Care Team Providers Care Party Plan Dealer Name Role Phone Maureen Donovan M.D. Primary Care Provider Unavail able Ashish Locke Unavailable [phone] Allergies No Known Allergies Results Component Value Reference Range Flag Notes Ferritin Reviewed date:12/17/2024 11:06:28 PM Interpretation: Performing Lab:[facility], [address] [place] [id number] Notes/Report: Ferritin 129 20-250 ng/mL N Vitamin B12 and Folate Reviewed date:12/17/2024 11:06:37 PM Interpretation: Performing Lab:[facility], [address] [place] [id number] Notes/Report: Vitamin B12 574 200-900 pg/mL N NORMAL 200-900 PG/ML INDETERMINATE 160-199 PG/ML DEFICIENT < 160 PG/ML Folate 14.4 > or = 4.0 ng/mL Reference Values: > or = 4.0 ng/mL < 4.0 ng/mL suggests folate deficiency Methotrexate, aminopterin and folinic acid (leucovorin) are chemotherapeutic agents whose molecular structures are similar to folate; therefore, the Rn Family folate assay cannot be used for patients using these drugs. REASON FOR VISIT diarrhea, anemia Medications Medication SIG (Take, Route, Frequency, Duration) Notes Start Date End Date Status Metoprolol & Diet Manage Prod 25mg Active Norvasc 10mg Active glipiZIDE 2.5mg Acti ve [place] 3 Active Aspir-81 81mg Active Tamsulosin HCl 0.4 MG Capsule 1 capsule Orally Once a day Active Omeprazole 40 MG Capsule Delayed Release 1 capsule 1/2 to 1 hour before morning meal Orally Once a day Active Allopurinol 300mg 1 tablet po once daily Active Rosuvastatin Calcium 10 MG Tablet 1 tablet Orally Once a day Active Entresto 97-103 MG Tablet 1 tablet Orall y Twice a day Active Farxiga 10 MG Tablet 1 tablet Orally Onc e a day Active amLODIPine Besy-Benazepril HCl 5-10 MG Capsule as directed Orally Ac tive Vitamin D3 25 MCG (1000 UT) Tablet 1 tablet Orally Once a day Active PreserVision AREDS 2 - Capsule as directed Orally Active Magnesium Oxide 400 MG Tablet 1 tablet with food Orally Once a day Active Vitamin D-3 1000iu A ctive Furosemide 20 MG Tablet 1 tablet Orally Once a day Active Eplerenone 25 MG Tablet 1 tablet Orally Once a day Active hydrALAZINE HCl 100 MG Tablet 1 tablet with food Orally three times a day Active Isosorbide Mononitrate Active Social History Tobacco Use: Social History Observation Description Date Details (start date - stop date) Never Smoker NA - NA Social History Drugs/Alcohol: Social Info Question Answer Notes Alcohol Screen Did you have a drink containing alcohol in the past year? Yes Points 1 Interpretation Negative How often did you have 6 or more drinks on one occasion in the past year? Never (0 point) How many drinks did you have on a typical day when you were drinking in the past year? 1 or 2 drinks (0 point) How often did you have a drink containing alcohol in the past year? Monthly or less (1 point) Drug/Alcohol: Social Info Question Answer Notes AUDIT-C (Standard) Did you have a drink containing alcohol in the past year? No Points 0 Interpretation Negative Tobacco Use: Social Info Question Answer Notes Tobacco Control (Standard) Tobacco use: Nonsmoker Additional Details Category Social Info Options Details Miscellaneous: Marital status: Occupation: retired [employer] since 1998 Section Notes: Nonsmoker 8-9 yrs ago; no si g. alcohol Problems Problem Type SNOMED Code ICD Code Onset Dates Problem Status W/U Status Risk Notes Problem Anemia (206654087) Anemia (D64.9) Active confirmed Vital Signs Temperature 96.9 degrees Fahrenheit 11/24/19 25 Blood pressure systolic 001 mm Hg 11/24/19 25 Blood pressure diastolic 01 mm Hg 025 Heart Rate 72 /min 11/23/2024 Height 70.5 in 11/23/2024 Weight 196.9 lbs 11/23/2024 BMI 27.85 kg/m2 11/23/2024 Encounters Encounter Location Date Provider Diagnosis [facility] [address] [place] [address] 11/23/2024 Ashish Locke Anemia D64.9 Assessments Encounter Date Diagnosis (ICD Code) Assessment Notes Treatment Notes Treatment Clinical Notes Section Notes 11/23/2024 Anemia (ICD-10 - D64.9) Based on the lab results we can decide if you need any GI procedures Cut down the caffeine to help decrease the loose stools Plan Of Treatment Treatment Notes Assessment Notes Anemia Based on the lab results we can decide if you need any GI procedures Cut down the caffeine to help decrease the loose stools Pending Test Test Name Order Date IRON + IBC (FE) 11/23/2024 CBC w DIFF 11/23/2024 CELIAC PANEL #10 11/23/2024 Next Appt Details Follow Up: 6 Months, Reason: Provider Name:Ashish Locke , 05/30/2025 01:40:00 PM, [address], [address], [place], [address], History and Physical Notes * Examination Category Sub-Category Detail Notes Category Not es General Examination GENERAL APPEARANCE: pleasant , well nourished, well developed, in no acute distress EYES: sclera non-icteric NECK/THYROID: no cervical lymphade nopathy, neck supple HEART: S1, S2 normal LUNGS: clear to auscultatio n bilaterally ABDOMEN: normal bowel sounds, no guarding or rigidity, no hepatosplenomegaly, no masses palpable, soft, nontender, nondistended. NEUROLOGIC: alert and oriented SKIN: nonjaundiced, no spi pratik angiomata. EXTREMITIES: ORAL CAVITY: mucosa moist Progress Notes * BRAD ROTHMAN SrDOB:06/1939 (85 yo M)Acc No.[id number]:11/23/2024 Progress Notes Patient: BRAD ARAUJO Sr Provider: Mel Locke MD :1940 A ge:84 Y S ex:Male Date:11/23/2024 Address:[address] [place] [address] [place], [place] Pcp:Maureen Donovan M.D. Subjective: * Chief Complaints: * D iarrhea, anemia * HPI: i ncontinence: I saw Brad in consultation today in regard to further evaluation of his anemia and loose bowel movements. He was accompanied by his . I last saw Brad in 2012 at which time he underwent a negative screening colonoscopy with me. He reports that over at least the past 6 months he has had some trouble with his bowel movements. He describes having upwards of at least 3-4 somewhat loose and urgent bowel movements each day. He describes that these are brown stools and without any sign of hematochezia nor melena. He attributes the loose stools to being on furosemide as that makes him urinate frequently during the day which obviously precipitates multiple trips to the bathroom. He enjoys a good appetite and denies any significant heartburn or dysphagia. He denies any nausea, vomiting, early satiety, abdominal pain, jaundice, nor any unintentional weight loss. He denies any known family history of colorectal cancer, inflammatory bowel disease, or celiac disease. He does describe having 2 large coffees every morning. He denies any significant use of dairy products. As you know, his main medical issue appears to be that of cardiac disease with congestive heart failure for which he is on medications including Entresto and diuretics. He is followed by cardiology at [facility]. He is status post a previous coronary artery bypass at [facility] as well. He also describes some chronic pulmonary disease in relation to previous COVID related pneumonia. There is cardiopulmonary disease appears to be relatively significant in regard to some shortness of breath at rest, particularly when lying down. He has had anemia with laboratories earlier this summer showing a hemoglobin of 9.4, hematocrit 27.2, MCV 99, iron of 33, and iron saturation of 17%, other laboratory and included normal chemistries, BUN 28, creatinine 1.9, albumin 3.1, a stool specimen was negative for H. pylori antigen in September and negative for C. difficile as well. * ROS: G eneral/Constitutional: Change in appetite d enies. C hills d enies. F atigue d enies. O phthalmologic: Patient denies Negative.. E NT: Patient denies N egative.. R espiratory: Patient denies N o coughing/hemoptysis.. C ardiovascular: Patient denies No chest pain/orthopnea.. G astrointestinal: Comments S [facility] for details. G enitourinary: Patient denies No dysuria/hematuria.. M usculoskeletal: Patient denies No specific arthralgias/myalgias.. ? S kin: Patient denies N o rash/pruritus.. N eurologic: Patient denies No headaches/seizures.. P sychiatric: Patient denies N egative.. 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 * Hospitalization/Major Diagno stic Procedure: Denies Past Hospitalization. * Family History: F amily History Verified.. No family hx of colorectal cancer. * Social History: T obacco Use: T obacco Control (Standard) T obacco use: N onsmoker. D rugs/Alcohol: A lcohol Screen D id you have a drink containing alcohol in the past year? Y es, H ow often did you have 6 or more drinks on one occasion in the past year? N ever (0 point), H ow many drinks did you have on a typical day when you were drinking in the past year? 1 or 2 drinks (0 point), H ow often did you have a drink containing alcohol in the past year? M onthly or less (1 point), P oints 1 , I nterpretation N egative. M iscellaneous: M arital status: . 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 D rug/Alcohol: A PAULO-C (Standard) D id you have a drink containing alcohol in the past year? N o,?Points 0 , I nterpretation N egative. Social History Verified. N onsmoker 8-9 yrs ago; no sig. alcohol. * Medications: T akinghydrALAZINE HCl 100 MG Tablet 1 tablet with food Orally three times a day Isosorbide Mononitrate Furosemide 20 MG Tablet 1 tablet Orally Once a day Eplerenone 25 MG Tablet 1 tablet Orally Once a day Farxiga 10 MG Tablet 1 tablet Orally Once a day amLODIPine Besy-Benazepril HCl 5-10 MG Capsule as directed Orally Vitamin D3 25 MCG (1000 UT) Tablet 1 tablet Orally Once a day PreserVision AREDS 2 - Capsule as directed Orally Magnesium Oxide 400 MG Tablet 1 tablet with food Orally Once a day Tamsulosin HCl 0.4 MG Capsule 1 capsule Orally Once a day Omeprazole 40 MG Capsule Delayed Release 1 capsule 1/2 to 1 hour before morning meal Orally Once a day Rosuvastatin Calcium 10 MG Tablet 1 tablet Orally Once a day Entresto 97-103 MG Tablet 1 tablet Orally Twice a day Allopurinol 300mg 1 tablet po once daily Aspir-81 81mg glipiZIDE 2.5mg Metoprolol & Diet Manage Prod 25mg Norvasc 10mg [place] 3 Vitamin D-3 1000iu Medication List reviewed and reconciled with the patientTaking hydrALAZINE HCl 100 MG Tablet 1 tablet with food Orally three times a day Taking Isosorbide Mononitrate Taking Furosemide 20 MG Tablet 1 tablet Orally Once a day Taking Eplerenone 25 MG Tablet 1 tablet Orally Once a day Taking Farxiga 10 MG Tablet 1 tablet Orally Once a day Taking amLODIPine Besy-Benazepril HCl 5-10 MG Capsule as directed Orally Taking Vitamin D3 25 MCG (1000 UT) Tablet 1 tablet Orally Once a day Taking PreserVision AREDS 2 - Capsule as directed Orally Taking Magnesium Oxide 400 MG Tablet 1 tablet with food Orally Once a day Taking Tamsulosin HCl 0.4 MG Capsule 1 capsule Orally Once a day Taking Omeprazole 40 MG Capsule Delayed Release 1 capsule 1/2 to 1 hour before morning meal Orally Once a day Taking Rosuvastatin Calcium 10 MG Tablet 1 tablet Orally Once a day Taking Entresto 97-103 MG Tablet 1 tablet Orally Twice a day Taking Allopurinol 300mg 1 tablet po once daily Taking Aspir-81 81mg Taking glipiZIDE 2.5mg Taking Metoprolol & Diet Manage Prod 25mg Taking Norvasc 10mg Taking [place] 3 Taking Vitamin D-3 1000iu Medication List reviewed and reconciled with the patient * Allergies: N .K.D.A.yesAllergies Verified. Objective: * Vitals: W t:196.9lbs, Ht: 70.5 in, BMI:27.85Index, BP:001/01mm Hg, HR:72/min, Temp:96.9F, Wt-k.31 kg. * Examination: G eneral Examination: GENERAL APPEARANCE: p leasant, well nourished, well developed, in no acute distress. EYES: s clera non-icteric. ORAL CAVITY: m ucosa moist. NECK/THYROID: n o cervical lymphadenopathy, neck supple.? SKIN: n onjaundiced, no spider angiomata.. HEART: S 1, S2 normal. LUNGS: c lear to auscultation bilaterally. ABDOMEN: n ormal bowel sounds, no guarding or rigidity, no hepatosplenomegaly, no masses palpable, soft, nontender, nondistended.. NEUROLOGIC: a lert and oriented. Assessment: * Assessment: 1. A nemia - D64.9 (Primary) Plan: * Treatment: Value Reference Range F erritin 129 20-250 - ng/mL ?LAB: Vitamin B12 and Folate (Collection Date & Time - 11/25/2024 10:46 AM) * Value Reference Range V itamin B12 574 200-900 - pg/mL * F olate 14.4 > or = 4.0 - ng/mL Notes: Based on the lab results we can decide if you need any GI? procedures Cut down the caffeine to help decrease the loose stools?? * Preventive Medicine: Counseling: C are goal follow-up plan: A kareen Normal BMI Follow-up G iving encouragement to exercise. Screenings: F all Risk Screening F all Risk Assessment: O ne fall without injury in the past year, S creening: O ne fall without injury in the past year, P sindy of Care: N ot documented, no reason specified. * Follow Up: 6 Months Billing Information: * Procedure Codes: * The named appointment provid er may or may not be the originator of this progress note, and it is not deemed complete until electronically signed by the appointment provider. Sign off status: Pending * Provider: Mel Locke MD Date: 0 11/23/2024 Generated for Carl lawson/Jackson/Congitting on: 1 04/25/2024 10:26 AM EST
--- NOTE | 2025-02-23 08:57 | PFT_ITS ---
Flows: FEV1: 79 % of predicted at 2.16 L FVC: 84 % of predicted at 3.13 L FEV1/FVC: 69 % Bronchodilator response: Present Volumes: Total lung capacity: 86 % of predicted at 6.09 L Residual volume: 110 % of predicted at 3.06 L Slow vital capacity: 76 % of predicted at 3.03 L Expiratory reserve volume: 48 % of predicted at 0.59 L Diffusion capacity: Moderately decreased. Impression: Moderate obstructive ventilatory defect with positive bronchodilator response. Decreased diffusion capacity suggests emphysema. MTDD
[2025-02-23 09:51] VITALS: PULSE 82
--- OUTSIDE RECORDS SUMMARY | 2025-02-23 10:27 | XMS_ITS | Encounter Summary ---
Author Organization [facility] Address [address] [place] [address] Phone Care Team Providers Care Director Asset Name Role Phone Maureen Mata MD Primary Care Provider Encounter Details Date Type Department Care Team (Late st Contact Info) Description 08/17/2024 Procedure Pass [facility], Ct Scan - [address] [address] Social History Tobacco Use Types Packs/Day Years [...] on filedocumented in this encounter Care Teams Director Asset Relationship Specialty Start Date End Date Maureen Mata MD PCP - General Internal Medicine 08/22/24 documented as of this encounter Additional Source Comments The information contained in this document represents components of the legal health record. It is not the complete legal health record.[facility]
--- OUTSIDE RECORDS SUMMARY | 2025-02-23 10:27 | XMS_ITS | Patient Health Record ---
Author Organization [facility] Address [address] [place] [address] Care Team Providers Care Front Counter Attendant Name Role Phone Stewart Medel Primary Care Provider Unavailab humera Leisa Garrett Unavailable [phone] Reason For Referral No Information Medications Medication [...] day Active glipiZIDE 2.5 mg Act chayo [place] 3 1000 MG 1 capsule Orally Once [...] Problem Acquired hammer toe of right foot ([id number]) Other hammer toe(s) (acquired), right foot (M20.41) Active confirmed Problem Acquired hammer toe of left foot ([id number]) Other hammer toe(s) (acquired), left foot (M20.42) Active confirmed Problem Other atherosclerosis of lummi arteries of extremities, 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) Active confirmed Plan Of Treatment No Information Insurance Providers Payer Name Payer Address Payer Phone Subscriber Number Group Number Insured Name Patient Relationship to Insured Coverage Start Date Coverage End Date Medicare [employer] [address] [place] [address] [phone] [id number] Tam Dunaway Self - patient is the insured [facility] [address] [place] [address] [id number] Tam Dunaway Self - patient is the insured Medical (General) History Medical History History ICD Code Back,Hip,and Knee pain Gout High blood pressure Scarlet fever Measles Mumps Chicken pox Surgical History Surgery Date(Month/Year) triple bypass
--- OUTSIDE RECORDS SUMMARY | 2025-02-23 10:27 | XMS_ITS | Clinical Summary ---
Author Organization [facility] Address [address] [place] [address] Phone Care Team Providers Care Second Rigger Name Role Phone Maureen Donovan MD Primary Care Provider [phone] Allergies No known active allergies Medications sacubitril-vals quyen (Entresto) 97-103 MG per tablet TAKE 1 TABLET BY MOUTH 2 TIMES A DAY, DOSE INCREASE Active omeprazole (PriLOSEC) [address] capsule Take by mouth 1 (one) time each day Active [place]-3 Fatty Acids ([place]-3 Fish Oil) 1200 MG capsule Take 1 capsule by mouth in the morning. 4 Active nitroglycerin (NITROSTAT) 0.4 MG SL tablet See Instructions, PLACE 1 TABLET UNDER TONGUE NEEDED FOR CHEST PAIN OR ACUTE SHORTNESS OF BREATH...UP TO 3 TABLETS...EAC H 5 MINUTES APARTCALL 911 IF NO RELIEF, # 25 tablet, 2 Refills, 06/21/24 1:11:00 PM EDT, [facility]/pharmacy #[id number], 181, cm, 05/04/24 13:34:00 EST, Height, 85, kg, 10/22/23 18:19:00 EDT, Dry Weight 5 Active eplerenone (INSPRA) 25 MG tablet Take 25 mg by mouth 1 (one) time each day Active furosemide (LASIX) 40 MG tablet Take 60 mg by mouth 1 (one) time each day 5 Active Dapagliflozin Propanediol 10 MG tablet Take 10 mg by mouth in the morning. 10/09/202 4 Active MAGNESIUM OXIDE 400 PO Take [...] time 02/02/20 Discontinu ed(Med List Maintenanc e) tamsulosin (FLOMAX) 0.4 MG 24 hr capsule Take 0.4 mg by mouth in the morning. 2 02/22/20 25 sodium chloride 1 g tablet take 1 tablet by mouth daily for 3 days 5 02/02/20 Discontinu ed(Med List Maintenanc e) simvastatin (ZOCOR) 40 MG tablet Take 20 mg by mouth 0 02/02/20 Discontinu ed(Med List Maintenanc e) rosuvastatin (CRESTOR) 10 MG tablet Take 10 mg by mouth at bed time 02/02/20 25 Discontinu ed(Med List Maintenanc e) pentoxifylline (TRENtal) 400 MG CR tablet Take 400 mg by mouth 1 (one) time each day 0 02/02/20 Discontinu ed(Med List Maintenanc e) omeprazole (PriLOSEC) [address] capsule Take 40 mg by mouth in the morning. 4 02/02/20 Discontinu ed(Med List Maintenanc e) nystatin (MYCOSTATIN) 286608 UNIT/ML suspension SWISH AND SPIT 1 ML [...] Office Visit [facility].. [address] [place] [phone] Milton Middleton MD Stage 3 chronic kidney disease, not otherwise specified (HCC) (Primary Dx); Heart failure with reduced ejection fraction (HCC); Hypertension 02/01/2025 Orders Only [facility] [address] [address] ProviderBere MD from Last 3 [...] EST [facility] [address] [place] [address] Milton Middleton MD [address] [facility] [address] [place] [address] Health Maintenance Due Date Last [...] Procedure Name Priority Date/Time Associated Diagnosis Comments US RENAL LIMITED Routine 02/17/2025 12:0 8 PM EST Stage 3 chronic kidney disease, not otherwise specified (HCC) RENAL FUNCTION PANEL (EXTERNAL LAB ENTRY) Routine 01/19/2025 9:07 AM EDT RENAL FUNCTION PANEL (EXTERNAL LAB ENTRY) Routine 01/19/2025 from Last 3 Months Results * Ultrasound renal limited (02/17/2025 12:08 PM EST) Anatomical Region Laterality Modality Abdomen, Pelvis Ultrasound Milton Middleton MD CV VASCULAR PROCEDURES Final Res ult * Renal Function Panel (External Lab) (01/19/2025 9:07 AM EDT) Only the most recent of2 resultswithin the time period is included. Blood Historical Provider LAB BLOOD ORDERABLES Fallon l Result from Last 3 Months Insurance Medicare Care Teams Second Rigger Relationship Specialty Start Date End Date Maureen Donovan MD [address] [place] [address], [address] [place] [address] PCP - General Internal Medicine 02/01/25
--- OUTSIDE RECORDS SUMMARY | 2025-02-23 10:27 | XMS_ITS | Encounter Summary ---
Author Organization [facility] Address [address] [facility] [address] [place] [address] Phone Care Team Providers Care Franchise Field Consultant Name Role Phone Maureen Mata MD Primary Care Provider Reason for Referral * MRI/CAT Scan - Closed Specialty Diagnoses / Procedures Referred By Contac t Referred To Contact Radiology Diagnoses Spinal stenosis, lumbosacral region Radiculopathy, lumbar region Procedures CT Lumbar Spine Jong Warren PA [address] [address] Phone: tel: fax: Referral ID Status Reason Start Date Expiration Date Visits Re quested Visits Authorized [id number] Closed 08/17/2024 08/17/2025 1 1 Encounter Details Date Type Department Care Team (Latest Contact Info) Description 08/17/2024 Transcribe Orders Virtual Department [address] [place] [address] Jong Warren PA [address] [address] Spinal stenosis, lumbosacral region (Primary Dx); Radiculopathy, [...] unspecified documented in this encounter Care Teams Franchise Field Consultant Relationship Specialty Start Date End Date Maureen Mata MD PCP - General Internal Medicine 08/22/24 documented as of this encounter Additional Source Comments The information contained in this document represents components of the legal health record. It is not the complete legal health record.[facility]
--- OUTSIDE RECORDS SUMMARY | 2025-02-23 10:27 | XMS_ITS | Clinical Summary ---
Author Organization [facility] Address [address] [place] [address] Phone Care Team Providers Care Global [employer] Creative + Content Marketing Name Role Phone Maureen Mata MD Primary [...] [place] [id number] MED[place] PART A [place] [id number] [facility]ARE PART A & B [facility] POS MEDICARE PART A & B [facility] MEDICARE PART A & B [facility] HMO POS MEDICARE PART A & B [facility] HMO POS Care Teams Global Vp Creative + Content Marketing Relationship Specialty Start Date End Date Maureen Mata MD PCP - General Internal Medicine 08/22/24 Additional Source Comments The information contained in this document represents components of the legal health record. It is not the complete legal health record.[facility]
--- OUTSIDE RECORDS SUMMARY | 2025-02-23 10:27 | XMS_ITS | Patient Health Record ---
Author Organization [facility] Address [address] [place] [address] Care Team Providers Care Community Engagement Manager Name Role Phone Maureen Donovan M.D. Primary Care Provider Andre carter Ashish Locke Unavailable [phone] Allergies No Known Allergies Results Component Value Reference Range Flag Notes Ferritin Reviewed date:12/17/2024 11:06:28 PM Interpretation: Performing Lab:[address] [address] Notes/Report: Ferritin 129 20-250 ng/mL N Vitamin B12 and Folate Reviewed date:12/17/2024 11:06:37 PM Interpretation: Performing Lab:[address] [address] Notes/Report: Vitamin B12 574 200-900 pg/mL N NORMAL 200-900 PG/ML INDETERMINATE 160-199 PG/ML DEFICIENT < 160 PG/ML Folate 14.4 > or = 4.0 ng/mL Reference Values: > or = 4.0 ng/mL < 4.0 ng/mL suggests folate deficiency Methotrexate, aminopterin and folinic acid (leucovorin) are chemotherapeutic agents whose molecular structures are similar to folate; therefore, the [employer] folate assay cannot be used for patients using these drugs. Complete Blood Count Auto Di ff Reviewed date:12/17/2024 10:24:50 PM Interpretation: Performing Lab:[address] [address] Notes/Report: White Blood Count 5.2 4.8-10.8 X10*3/uL N Red Blood Count 3.00 4.60-5.80 X10*6/uL L Hemoglobin 10.1 14.0-18.0 g/dl L Hematocrit 30.4 42.0-52.0 % L Mean Corpuscular Volume 101.3 80.0-98.0 fL H Mean Corpuscular Hemoglobin 33.7 27.0-33.0 pg H Mean Corpuscular HGB Conc 33.2 31.0-36.0 g/dl N Red Cell Distribution Width 14.9 11.0-16.0 % N Platelet Count 201 160-400 X10*3/uL N Mean Platelet Volume 9.2 9.4-12.4 fL L Neutrophils Percent Auto 75.1 45-73 % H Imm Gran Pct Auto 5.2 0.0-0.4 % H Lymphocytes Percent Auto 14.6 20-40 % L Monocytes Percent Auto 3.7 2-11 % N Eosinophils Percent Auto 0.6 0-4 % N Basophils Percent Auto 0.8 0-2 % N NRBC Pct Auto 0.0 0.0-0.2 /100WBC N Neutrophils Absolute Auto 3.9 2.0-8.3 x10*3/uL N Imm Gran Abs Auto 0.27 0.00-0.03 X10*3/uL H Lymphocytes Absolute Auto 0.8 1.2-4.9 X10*3/uL L Monocytes Absolute Auto 0.2 0.1-1.2 X10*3/uL N Eosinophils Absolute Auto 0.0 0.0-0.4 X10*3/uL N Basophils Absolute Auto 0.0 0.0-0.2 X10*3/uL N NRBC Abs Auto 0.000 0.0-0.012 X10*3/uL N Complete Blood Count Man Dif Reviewed date:12/17/2024 10:25:03 PM Interpretation: Performing Lab:[facility], [address] [place] [phone] Notes/Report: White Blood Count 5.2 4.8-10.8 X10*3/uL N Red Blood Count 3.00 4.60-5.80 X10*6/uL L Hemoglobin 10.1 14.0-18.0 g/dl L Hematocrit 30.4 42.0-52.0 % L Mean Corpuscular Volume 101.3 80.0-98.0 fL H Mean Corpuscular Hemoglobin 33.7 27.0-33.0 pg H Mean Corpuscular HGB Conc 33.2 31.0-36.0 g/dl N Red Cell Distribution Width 14.9 11.0-16.0 % N Platelet Count 201 160-400 X10*3/uL N Mean Platelet Volume 9.2 9.4-12.4 fL L NRBC Pct Auto 0.0 0.0-0.2 /100WBC N NRBC Abs Auto 0.000 0.0-0.012 X10*3/uL N Neutrophils Percent Manual 79 45-73 % H Band Neutrophils Percent 3 3-5 % N Lymphocytes Percent Manual 14 20-40 % L Atypical Lymphs Percent Manual 1 0-6 % N Monocytes Percent Manual 2 2-11 % N Basophils Percent Manual 1 0-2 % N Neutrophils Absolute Manual 4.3 2.0-8.3 X10*3/uL N Lymphocytes Absolute Manual 0.7 1.2-4.9 X10*3/uL L Atypical Lymph Absolute Manual 0.1 Monocytes Absolute Manual 0.1 0.1-1.2 X10*3/uL N Basophils Abs Manual 0.1 0.0-0.2 X10*3/uL N Platelet Estimate NORMAL NORMAL Platelet Morphology Comment NORMAL RBC Morphology NOTED Macrocytosis 1+ (5-14) Ovalocytes 1+ (5-14) Acanthocytes 1+ (0-2) IRON PROFILE Reviewed date:12/17/2024 10:25:29 PM Interpretation: Performing Lab:[facility], [address] [place] [phone] Notes/Report: Iron 32 45-160 mcg/dL L Total Iron Binding Capacity 201 228-428 mcg/dL L Percent Iron Saturation 16 15-50 % N Unsaturated Iron Binding 169 Immunoglobulin A Reviewed date:12/17/2024 10:25:40 PM Interpretation: Performing Lab:[facility], [address] [place] [phone] Notes/Report: Immunoglobulin A 362 70-320 mg/dL A THIS TEST WAS PERFORMED AT: [facility] [address] [address] MARIAN GUTIERREZ MD Transglutaminase Ab IgG Reviewed date:12/17/2024 11:05:46 PM Interpretation: Performing Lab:[facility], [address] [place] [phone] Notes/Report: Transglutaminase Ab IgG <1.0 N Value Interpretation ----- <15.0 Antibody not detected > or = 15.0 Antibody detected THIS TEST WAS PERFORMED AT: [facility] [address] [place] [phone] MARIAN GUTIERREZ MD Transglutaminase IgA Reviewed date:12/17/2024 11:05:55 PM Interpretation: Performing Lab:[facility], [address] [place] [phone] Notes/Report: Transglutaminase IgA <1.0 N Value Interpretation ----- <15.0 Antibody not detected > or = 15.0 Antibody detected THIS TEST WAS PERFORMED AT: [facility] [address] [place] [phone] MARIAN GUTIERREZ MD Gliadin Ab Panel Reviewed date:12/17/2024 11:06:08 PM Interpretation: Performing Lab:[facility], [address] [place] [phone] Notes/Report: Gliadin Deamidated IgA Ab 6.6 N Value Interpretation ----- <15.0 Antibody not detected > or = 15.0 Antibody detected Gliadin Deamidated IgG Ab <1.0 N Value Interpretation ----- <15.0 Antibody not detected > or = 15.0 Antibody detected THIS TEST WAS PERFORMED AT: [facility] [address] [place] [phone] MARIAN GUTIERREZ MD Endomysial IgA rflx Titer Reviewed date:12/17/2024 11:06:16 PM Interpretation: Performing Lab:[facility], [address] [place] [phone] Notes/Report: Endomysial IgA Antibody Negative Negative THIS TEST WAS PERFORMED AT: [facility]/[address] [place] NICOL GRAJEDA MD,PHD Endomysial Titer TNP Reason For Referral No Information Medications Medication SIG (Take, Route, Frequency, Duration) Notes Start Date End Date Status amLODIPine Besy-Benazepril HCl 5-10 MG Capsule as directed Orally Ac tive Metoprolol & Diet Manage Prod 25mg Active Vitamin D3 25 MCG (1000 UT) Tablet 1 tablet Orally Once a day Active Norvasc 10mg Active glipiZIDE 2.5mg Acti ve Tamsulosin HCl 0.4 MG Capsule 1 capsule Orally Once a day Active Omeprazole 40 MG Capsule Delayed Release 1 capsule 1/2 to 1 hour before morning meal Orally Once a day Active PreserVision AREDS 2 - Capsule as directed Orally Active [place] 3 Active Magnesium Oxide 400 MG Tablet 1 tablet with food Orally Once a day Active Vitamin D-3 1000iu A ctive Furosemide 20 MG Tablet 1 tablet Orally Once a day Active Allopurinol 300mg 1 tablet po once daily Active Eplerenone 25 MG Tablet 1 tablet Orally Once a day Active Aspir-81 81mg Active hydrALAZINE HCl 100 MG Tablet 1 tablet with food Orally three times a day Active Rosuvastatin Calcium 10 MG Tablet 1 tablet Orally Once a day Active Isosorbide Mononitrate Active Entresto 97-103 MG Tablet 1 tablet Orall y Twice a day Active Farxiga 10 MG Tablet 1 tablet Orally Onc e a day Active Social History Tobacco Use: Social History Observation Description Date Details (start date - stop date) Never Smoker NA - NA Social History Drug/Alcohol: Social Info Question Answer Notes AUDIT-C (Standard) Did you have a drink containing alcohol in the past year? No Points 0 Interpretation Negative Tobacco Use: Social Info Question Answer Notes Tobacco Control (Standard) Tobacco use: Nonsmoker Additional Details Category Social Info Options Details Miscellaneous: Marital status: Occupation: retired letter c arrier since 1998 Section Notes: Nonsmoker 8-9 yrs ago; no si g. alcohol Nonsmoker 8-9 yrs ago; no si g. alcohol Problems Problem Type SNOMED Code ICD Code Onset Dates Problem Status W/U Status Risk Notes Problem Already on aspirin (967933436) Long-term (current) use of aspirin (V58.66) Active confirmed Problem Colon cancer screening (012474741) Colon cancer screening (V76.51) Active confirmed Problem Anemia (976903580) Anemia (D64.9) Active confirmed Vital Signs Heart Rate 72 /min 11/23/2024 Temperature 96.9 degrees Fahrenheit 11/23/2024 Blood pressure diastolic 01 mm Hg 11/23/2024 Height 70.5 in 11/23/2024 Blood pressure systolic 001 mm Hg 11/23/2024 Weight 196.9 lbs 11/23/2024 BMI 27.85 kg/m2 11/23/2024 Encounters Encounter Location Date Provider Diagnosis [facility] [address] [place] [address] 11/23/2024 Ashish Locke Anemia D64.9 [facility] [address] [address] 01/04/2025 Ashish Locke Assessments Encounter Date Diagnosis [...] COLONOSCOPY 06/15/2012 Next Appt Details Provider Name:Ashish Locek , 05/30/2025 01:40:00 PM, [address] [facility], [address], [place], [address], Insurance Providers Payer Name Payer Address Payer Phone Subscriber Number Group Number Insured Name Patient Relationship to Insured Coverage Start Date Coverage End Date MEDICARE OF [place] [address] [place] [address] [id number] BRAD ROTHMAN Self - patient is the insured [address] 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
== END 2025-02-23 08:52 | disposition home or self-care (01) ==
LOC: HO.RESP 08:51
PROVIDERS: PCP Internal Medicine; Visit Provider Internal Medicine
DX: R06.02 Shortness of breath (principal); R05.9 Cough, unspecified
CPT/HCPCS: 94060; 94640; 94727; 94729

== ENCOUNTER → 2025-02-23 08:57 | Outpatient (BNV) | payer MEDICARE, BC, SELFPAY | PROVIDERS: PCP Internal Medicine; Visit Provider Internal Medicine Pulmonary Disease | DX: J98.4 Other disorders of lung (principal) | CPT/HCPCS: 94060; 94727; 94729 ==

== ENCOUNTER 2025-02-28 10:36 | Outpatient (AMB) | payer MEDICARE, BC, SELFPAY ==
[2025-02-28 10:43] VITALS: BP 114/52; PULSE 64; O2SAT 97; BMI 26.1
--- NOTE | 2025-02-28 10:43 | A.OFFVIS_ITS ---
Vital Signs 02/28/25 10:43 Height 5 ft 11 in Weight 187 lb 2 oz BMI 26.1 BP 114/52 L Blood Pressure Location Rt brachial Position Sitting Pulse 64 Pulse Source Pulse Oximeter Pulse Oximetry (%) 97 Oxygen Delivery Method Room Air Intake Visit Reasons: Shortness of breath Allergies No Known Allergies Allergy (Verified 02/28/25 10:46) HPI HPI Shortness of breath: Details: Tam is a pleasant 85 year old male, former 10 pack year smoker, quit 25 years ago with underlying ischemic cardiomyopathy HFrEF (EF 20-25% 11/28), CAD s/p CABG x3 2010, HTN, HLD, CKD, DMII, and Macrocytic anemia. He was initially referred by PCP for worsening dyspnea on exertion with associated wheezing and productive cough over the last year. He denies h/o recurrent URI, however did have to be hospitalized due to COVID PNA in 2019. He was trialed on albuterol for suspicion of asthma/COPD however did not find benefit from this. After further discussion with appears patient was not using properly. Since last visit patient underwent cardiac catheterization 02/17 at [facility] which demonstrated no significant change in coronary and graft anatomy compared to prior angiogram few months ago. The suspicion is that his progressive dyspnea is related to worsening congestive heart failure and recommendations made to continue monitoring aortic stenosis, previously noted to be moderate. Today he presents to review PFT results. Of note, prior chest CT revealed mild medistinal lymphadenopathy with recommendations for follow up, order placed for a six-month repeat chest CT. [facility] Surgical History Hx of CABG History of knee surgery Hx of tonsillectomy Social History Housing: House Alcohol intake: never Patient Tobacco Use Status: Former Tobacco user Years Smoked: 40 e-Cigarette/Vaping Use: Never Used Second Hand Smoke Exposure: No service: Yes Current occupational status: retired Cognitive needs: No Hearing needs: Yes Vision needs: No Review of Systems Const Denies chills, Denies excessive sweating, Denies fever(s), Denies headache(s) and Denies night sweats Eyes Denies dry eyes, Denies irritation and Denies itchy eyes ENT Reports Normal hearing present, Denies headache(s), Denies nasal congestion, Denies nasal discharge, Denies post nasal drip and Denies sore throat Card Denies chest pain, Denies chest pain at rest, Denies chest pain with activity, Denies claudication, Denies orthopnea and Denies paroxysmal nocturnal dyspnea Resp Denies chest congestion, Denies excessive phlegm production, Denies pain on insp iration, Denies pain with cough and Denies stridor Musc Denies myalgias Neuro Reports Normal hearing present and Denies headache(s) Endo Denies excessive sweating Alf/Lymph Denies lymphadenopathy Aller/Immun Denies itchy eyes and Denies seasonal rhinorrhea Physical Exam Vital Signs: Last Vital Signs Pulse 64 02/28/25 10:43 BP 114/52 L 02/28/25 10:43 Pulse Ox 97 02/28/25 10:43 Oxygen Delivery Method Room Air 02/28/25 10:43 BMI result Body Mass Index 26.1 Const General: cooperative, healthy appearing, comfortable, no acute distress, well developed and alert Orientation/consciousness: patient oriented x3 Limitations: no limitations HEENT Head: Yes normal to inspection, Yes normocephalic and Yes atraumatic Ears: hearing grossly normal bilaterally and external ears normal Eyes General: appearance normal, both eyes and all related structures Eyelids: Yes eyelids normal Sclerae: sclerae normal EOM: EOMs intact bilaterally Neck Neck: Yes normal visual inspection and Yes no lymphadenopathy Lymphatic: no lymphadenopathy noted Chest Chest palpation & inspection: normal inspection of the chest Resp Effort & Inspection: normal respiratory effort, able to speak in complete sen tences, no audible wheezes, no cough, no stridor, not tachypneic, no tripod positioning and no use of accessory muscles Auscultation: clear to auscultation bilaterally Cardio Jugular venous distension: no JVD Rate: regular rate Rhythm: regular rhythm Skin Other: warm, dry General skin exam: no rashes or lesions noted Neuro General: patient oriented x3 Cranial nerves: Yes Normal hearing present Cognition (Neuro): normal cognition Gait exam (Neuro): Normal gait present Extrem General: Yes normal to inspection, Yes capillary refill normal, Yes no clubbing, cyanosis or edema and Yes no pedal edema Psych Appearance: grossly normal and well kempt Speech and movement: Normal speech and movement present and Clear speech present Affect: normal affect Attitude: cooperative Thought process: Normal thought process present Thought content: Normal thought content present Insight: Good insight present (Psych) Judgement: Good judgement present (Psych) Assessment & Plan Assessment & Plan (1) Shortness of breath: Code(s): R06.02 - Shortness of breath Category: Medical (2) Cough: Code(s): R05.9 - Cough, unspecified Category: Medical (3) CHF (congestive heart failure): Code(s): I50.9 - Heart failure, unspecified Category: Medical Qualifiers: Heart failure chronicity: chronic Heart failure type: combined systolic and diastolic Qualified Code(s): I50.42 - Chronic combined systolic (congestive) and diastolic (congestive) heart failure (4) Mediastinal lymphadenopathy: Code(s): R59.0 - Localized enlarged lymph nodes Category: Medical Plan Reviewed PFT which demonstrated moderate obstructive ventilatory defect with positive bronchodilator response, as well as decreased diffusion capacity suggestive of emphysema, DLCO 45%. We discussed these findings suggestive of asthma COPD overlap syndrome and recommendations to initiate a daily inhaler however patient apprehensive as he did not benefit from albuterol p.r.n. in the past. Reviewed inhaler technique, patient with poor inspiratory effort and recommended nebulized therapy which he was agreeable to. He was given a nebulizer in office for home use and a prescription for levalbuterol to be used p.r.n. was sent to the pharmacy. Patient has significant cardiac history and should avoid albuterol. If he finds some benefit will consider adding nebulized budesonide to regimen. We will also consider 6 minute walk at next visit. Discussed importance of medication compliance through cardiology as well as daily weights, fluid intake and salt intake. Prior CT 11/2024 revealed mild medistinal lymphadenopathy with recommendations for follow up order previously placed for six-month chest CT. All questions were answered an patient is in agreement of plan. Will follow up in 8-10 weeks or sooner if needed. Medications: New levalbuterol HCl 1.25 mg (3 mL) inhalation Q4-6H PRN 180 mL 3RF shortness of breath or wheezing I42.9 - Cardiomyopathy, unspecified, J44.89 - Other specified chronic obstructive pulmonary disease Coding Level of Care Code Est Pt Level 4 (44195) Diagnoses Shortness of breath R06.02 Cough R05.9 Chronic combined systolic and diastolic congestive heart failure I50.42 Heart failure chronicity: chronic Heart failure type: combined systolic and diastolic Mediastinal lymphadenopathy R59.0
== END 2025-02-28 11:31 | disposition home or self-care (01) ==
LOC: HO.HPSW 10:37
PROVIDERS: PCP Internal Medicine; Visit Provider Nurse Practitioner Family
DX: R06.02 Shortness of breath (principal); R05.9 Cough, unspecified; I50.42 Chronic combined systolic (congestive) and diastolic (congestive) heart failure; R59.0 Localized enlarged lymph nodes
CPT/HCPCS: 99214

== ENCOUNTER → 2025-02-28 10:36 | Outpatient (BNVA) | payer MEDICARE, BC, SELFPAY | PROVIDERS: PCP Internal Medicine; Visit Provider Nurse Practitioner Family | DX: R06.02 Shortness of breath (principal); R05.9 Cough, unspecified; R59.0 Localized enlarged lymph nodes; I11.0 Hypertensive heart disease with heart failure; I50.42 Chronic combined systolic (congestive) and diastolic (congestive) heart failure | CPT/HCPCS: 99212 ==